=== PATIENT | male | born 1990 | race Caucasian/White ===

== ENCOUNTER 2018-10-25 10:31 | Emergency (ER) | payer MEDICAID ==
[~2018-10-25] VITALS: Ht 167.6 cm; Wt 158.9 kg
[~2018-10-25 10:31] MED LIST: ALBU18HF2 INH; BENZ-16 PO; FERR325T32 PO; LORA10TA7 PO; LOSA50TA64 PO; MESA1.2T PO; MONT10TA24 PO; PRED10TA23 PO; RISP1TAB3 PO; TRAZ-251 PO
[2018-10-25 10:57] VITALS: BP_DIAS 74
[2018-10-25 12:51] LABS: BASOPHILS % (AUTO) 0.5 % (0-1); EOSINOPHILS # (AUTO) 0.1 X10'3 (0-0.9); EOSINOPHILS % (AUTO) 0.9 % (0-6); HEMATOCRIT 22.8 % (42.0-52.0); HEMOGLOBIN 7.3 g/dl (14.0-17.9); LYMPHOCYTES # (AUTO) 1.1 X10'3 (1.1-4.8); LYMPHOCYTES % (AUTO) 12.3 % (21-51); MEAN CORPUSCULAR HEMOGLOBIN 26.6 PG (27.0-31.0); MEAN CORPUSCULAR HGB CONC 32.2 g/dL (33.0-36.5); MEAN CORPUSCULAR VOLUME 82.7 FL (78-98); MEAN PLATELET VOLUME 6.5 FL (7.4-10.4); MONOCYTES # (AUTO) 0.8 X10'3 (0-0.9); MONOCYTES % (AUTO) 9.2 % (2-12); NEUTROPHILS # (AUTO) 7.1 X10'3 (1.8-7.7); NEUTROPHILS % (AUTO) 77.1 % (42-75); PLATELET COUNT 451 X10'3 (140-440); RED BLOOD COUNT 2.76 X10'6 (4.70-6.10); WHITE BLOOD COUNT 9.2 X10'3 (4.5-11.0)
[2018-10-25 13:03] LABS: ALANINE AMINOTRANSFERASE 14 U/L (12-78); ALBUMIN/GLOBULIN RATIO 0.5 (1.1-1.5); ALKALINE PHOSPHATASE 41 IU/L (46-116); ANION GAP 5 (8-16); ASPARTATE AMINO TRANSFERASE 7 U/L (10-37); BILIRUBIN,TOTAL 0.2 MG/DL (0.1-1.0); BLOOD UREA NITROGEN 12 MG/DL (7-18); BUN/CREATININE RATIO 10.8 (5.4-32.0); CALCIUM 8.5 MG/DL (8.5-10.1); CHLORIDE 102 MMOL/L (99-107); CREATININE 1.11 MG/DL (0.60-1.10); GLUCOSE 125 MG/DL (70-104); POTASSIUM 3.5 MMOL/L (3.5-5.1); SODIUM 136 MMOL/L (135-145); TOTAL CARBON DIOXIDE 29.3 MMOL/L (24-32); TOTAL PROTEIN 6.2 G/DL (6.4-8.2); eGFR 81 ML/MIN
[2018-10-25 13:08] LABS: ANISOCYTOSIS 2+; LARGE PLATELETS FEW; MICROCYTOSIS 1+; PLATELET ESTIMATE INCREASED
[2018-10-25 13:09] LABS: ELLIPTOCYTES FEW; POIKILOCYTOSIS FEW; POLYCHROMASIA 2+
[2018-10-25 13:10] LABS: TARGET CELLS FEW; TEAR DROP CELLS 1+
== END 2018-10-25 13:29 | disposition home or self-care (01) ==
LOC: ER 10:32
DX: D64.9 Anemia, unspecified (principal); K51.011 Ulcerative (chronic) pancolitis with rectal bleeding; Z79.899 Other long term (current) drug therapy; Z87.891 Personal history of nicotine dependence
CPT/HCPCS: 36415; 80053; 85025; 85610; 86885; 86900; 86901; 99283

== ENCOUNTER 2018-11-08 20:46 | Inpatient (IN) | payer MEDICAID ==
[~2018-11-08] VITALS: Ht 167.6 cm; Wt 150.0 kg
[2018-11-08] MEDS ORDERED: famotidine/PF 10 mg/ml inj IV ONE (21:00)
[2018-11-08] MEDS ORDERED: octreotide 100mcg/1 ml ampule IV ONE (21:00)
--- NOTE | 2018-11-08 21:03 | NUR ---
DUE TO PT SIZE, UNABLE TO AUSCULTATE LUNGS OR ABDOMEN
[2018-11-08] MEDS ORDERED: ESOMEPRAZOLE 40 MG VIAL IV ONE (21:10)
[2018-11-08 21:11] LABS: BASOPHILS % (AUTO) 0.3 % (0-1); EOSINOPHILS % (AUTO) 0.4 % (0-6); LYMPHOCYTES # (AUTO) 1.6 X10'3 (1.1-4.8); LYMPHOCYTES % (AUTO) 15.2 % (21-51); MEAN CORPUSCULAR HEMOGLOBIN 24.7 PG (27.0-31.0); MEAN CORPUSCULAR VOLUME 79.7 FL (78-98); MEAN PLATELET VOLUME 6.6 FL (7.4-10.4); MONOCYTES # (AUTO) 1.5 X10'3 (0-0.9); MONOCYTES % (AUTO) 14.4 % (2-12); NEUTROPHILS # (AUTO) 7.4 X10'3 (1.8-7.7); NEUTROPHILS % (AUTO) 69.7 % (42-75); PLATELET COUNT 573 X10'3 (140-440); RED BLOOD COUNT 2.59 X10'6 (4.70-6.10); RED CELL DISTRIBUTION WIDTH 18.7 % (11.5-14.5); WHITE BLOOD COUNT 10.7 X10'3 (4.5-11.0)
[2018-11-08] MEDS: pantoprazole 40MG/NS 100ML BAG 100 ML IV SCH (21:16)
[2018-11-08 21:17] LABS: HEMATOCRIT 20.7 % (42.0-52.0); HEMOGLOBIN 6.4 g/dl (14.0-17.9)
[2018-11-08] MEDS ORDERED: hydrocortisone sod succ/PF 100mg/2ml inj. IV STA (21:23)
[2018-11-08 21:24] LABS: ALANINE AMINOTRANSFERASE 20 U/L (12-78); ALBUMIN 1.7 G/DL (3.4-5.0); ALBUMIN/GLOBULIN RATIO 0.4 (1.1-1.5); ALKALINE PHOSPHATASE 46 IU/L (46-116); ANION GAP 4 (8-16); ASPARTATE AMINO TRANSFERASE 7 U/L (10-37); BILIRUBIN,TOTAL 0.3 MG/DL (0.1-1.0); BLOOD UREA NITROGEN 9 MG/DL (7-18); CALCIUM 7.5 MG/DL (8.5-10.1); CHLORIDE 98 MMOL/L (99-107); CREATININE 1.13 MG/DL (0.60-1.10); GLUCOSE 110 MG/DL (70-104); LIPASE 50 U/L (73-393); POTASSIUM 3.5 MMOL/L (3.5-5.1); SODIUM 131 MMOL/L (135-145); TOTAL CARBON DIOXIDE 29.3 MMOL/L (24-32); TOTAL PROTEIN 6.1 G/DL (6.4-8.2); eGFR 79 ML/MIN
[2018-11-08] MEDS ORDERED: octreotide inj. 1,250 MCG in normal saline 250ml IV soln 250 ML IV ONE (21:25)
[2018-11-08] MEDS ORDERED: normal saline 1000ML IV soln IV ONE (21:25)
[2018-11-08 21:44] LABS: PARTIAL THROMBOPLASTIN TIME 29 SECONDS (22-32)
[2018-11-08] MEDS ORDERED: mag hydrox/Alum hydrox/simeth 30ml oral suspension PO PRN (21:50)
[2018-11-08] MEDS ORDERED: morphine 2 MG/ML inj. syringe IV PRN ×2 (21:50)
[2018-11-08] MEDS ORDERED: magnesium hydroxide 30ml (MOM) UD suspension PO PRN (21:50)
[2018-11-08] MEDS ORDERED: acetaminophen 325mg tablet PO PRN ×2 (21:50)
[2018-11-08] MEDS ORDERED: ondansetron/PF 4mg/2ml inj IV PRN (21:50)
[2018-11-08 21:51] LABS: ANISOCYTOSIS 2+; HYPOCHROMASIA 1+; LARGE PLATELETS FEW; MICROCYTOSIS 1+; PLATELET ESTIMATE INCREASED; POLYCHROMASIA FEW; STOMATOCYTES FEW
[2018-11-08 22:28] LABS: OCCULT BLOOD STOOL POSITIVE (Neg)
[2018-11-08 22:32] VITALS: BP 142/85
[2018-11-08 22:56] VITALS: BP 140/80
--- NOTE | 2018-11-08 22:57 | NUR ---
Patient in room [facility]. I have received report from LARON Ray and had the opportunity to ask questions and assume patient care.
[2018-11-08 23:30] VITALS: BP 141/71
[2018-11-08 23:56] VITALS: BP 139/79
[2018-11-09] VITALS (10 sets, daily range): BP systolic 131–163; BP diastolic 71–105
[2018-11-09] MEDS: normal saline 1000ml 1,000 ML IV SCH ×3 (01:52→19:28)
[2018-11-09] MEDS ORDERED: hydrocortisone sod succ/PF 100mg/2ml inj. IV SCH (02:00)
[2018-11-09] MEDS: pantoprazole 40MG/NS 100ML BAG 100 ML IV SCH ×5 (02:08→21:25)
[2018-11-09] MEDS: hydrocortisone sod succ/PF 100mg/2ml inj. IV SCH ×4 (02:32→19:28)
[2018-11-09] MEDS: metroNIDAZOLE-Flagyl 500mg/NS 100 ML IV SCH ×3 (02:33→16:25)
[2018-11-09] MEDS: levoFLOXACIN-Levaquin 500mg/D5 100 ML IV SCH ×2 (03:50→08:00)
[2018-11-09 04:04] LABS: CLARITY,URINE CLEAR (Clear); COLOR,URINE YELLOW (Yellow); GLUCOSE, URINE 100 mg/dl (Neg); KETONES,URINE 40 mg/dl (Neg); LEUKOCYTE ESTERASE ,URINE NEGATIVE (Neg); NITRITES, URINE NEGATIVE (Neg); OCCULT BLOOD,URINE NEGATIVE (Neg); PROTEIN,URINE TRACE mg/dl (Neg); UROBILINOGEN,URINE 0.2 E.U/dL (0.2-1.0)
[2018-11-09 04:13] LABS: UA COLLECTION TYPE CLN CATCH MIDSTREAM
[2018-11-09 04:14] LABS: BACTERIA,URINE NONE SEEN /HPF (Neg); RBC,URINE 0-2 /HPF (0-2); SQUAMOUS EPITHELIAL CELL,UR FEW /LPF (FEW); WBC,URINE NONE SEEN /HPF (0-4)
--- NOTE | 2018-11-09 06:11 | NUR ---
Problems reprioritized. Patient report given, questions answered & plan of care reviewed with LARON Reyes.
--- NOTE | 2018-11-09 06:53 | NUR ---
Patient in room [facility]. I have received report from Rafita LARRY and had the opportunity to ask questions and assume patient care.
[2018-11-09 06:54] LABS: ALBUMIN 1.7 G/DL (3.4-5.0); ANION GAP 3 (8-16); BLOOD UREA NITROGEN 11 MG/DL (7-18); BUN/CREATININE RATIO 9.2 (5.4-32.0); CALCIUM 8.3 MG/DL (8.5-10.1); CHLORIDE 102 MMOL/L (99-107); CREATININE 1.19 MG/DL (0.60-1.10); GLUCOSE 264 MG/DL (70-104); POTASSIUM 4.1 MMOL/L (3.5-5.1); SODIUM 133 MMOL/L (135-145); TOTAL CARBON DIOXIDE 28.4 MMOL/L (24-32); eGFR 74 ML/MIN
[2018-11-09 06:55] LABS: BASOPHILS % (AUTO) 0.3 % (0-1); EOSINOPHILS % (AUTO) 0.1 % (0-6); LYMPHOCYTES # (AUTO) 0.8 X10'3 (1.1-4.8); LYMPHOCYTES % (AUTO) 9.6 % (21-51); MEAN CORPUSCULAR HEMOGLOBIN 26.2 PG (27.0-31.0); MEAN CORPUSCULAR VOLUME 81.9 FL (78-98); MEAN PLATELET VOLUME 6.7 FL (7.4-10.4); MONOCYTES # (AUTO) 0.5 X10'3 (0-0.9); MONOCYTES % (AUTO) 6.8 % (2-12); NEUTROPHILS # (AUTO) 6.6 X10'3 (1.8-7.7); NEUTROPHILS % (AUTO) 83.2 % (42-75); PLATELET COUNT 479 X10'3 (140-440); RED BLOOD COUNT 2.69 X10'6 (4.70-6.10); RED CELL DISTRIBUTION WIDTH 18.1 % (11.5-14.5)
[2018-11-09] MEDS ORDERED: mesalamine 400 mg capsule.DR PO SCH (07:00)
--- NOTE | 2018-11-09 07:32 | NUR ---
Paged Dr. Zacarias regarding hgb this am of 7.0, hct of 22.0. I also let him know the glucose chemistry this am was 264mg/dl, capillary glucose of 196, urine glucose of 100 and urine ketone of 40
[2018-11-09] MEDS ORDERED: mesalamine 1.2gm ER tablet PO SCH (08:00)
[2018-11-09] MEDS: mesalamine 1.2gm ER tablet PO SCH ×3 (09:17→21:25)
[2018-11-09] MEDS ORDERED: potassium Cl 20 mEq SR tablet PO PRN (09:20)
[2018-11-09] MEDS ORDERED: magnesium Cl slow-release 64mg tablet PO PRN (09:20)
[2018-11-09] MEDS ORDERED: magnesium 4gm in 100ml NS 100 ML IV PRN (09:20)
[2018-11-09] MEDS ORDERED: potassium CL 10mEq/100ml bag 100 ML IV PRN (09:20)
[2018-11-09 11:10] LABS: C DIFF ANTIGEN SEE COMMENTS (NEGATIVE); C DIFF SPECIMEN=DIARRHEA? ACCEPTABLE; C DIFFICILE TOXINS A&B NEGATIVE (Neg)
[2018-11-09 11:14] LABS: C DIFF TOXIN (LAMP) POSITIVE (NEG)
--- NOTE | 2018-11-09 11:23 | NUR ---
Lab called reporting positive C. diff result. Dr. Zacarias notified and patient was notified
[2018-11-09] MEDS ORDERED: non-formulary drug (Albuterol Sulfate (Ventolin Hfa) 2 PUFFS) INH SCH (12:05)
[2018-11-09] MEDS ORDERED: albuterol 2.5 MG/3 ML nebule NEB PRN (12:10)
[2018-11-09] MEDS: losartan 50mg tablet PO SCH (14:05)
[2018-11-09] MEDS: vancomycin 125mg/5ml ORAL solution 5ml UD bottle PO SCH ×2 (14:05→19:28)
--- NOTE | 2018-11-09 15:53 | NUR ---
1 unit of PRBC transfused, no reaction noted. Patient's mother at bedside, educated the mother and the other visitor about the importance of handwashing with soap and water to prevent transmission of C. diff to another person. Visitors were also aware of the need to wear gown while visiting patient
--- NOTE | 2018-11-09 15:54 | NUR ---
Paged GI lab nurse to confirm the schedule for EGD, I also left a message to the answering service to ask Dr. Amanda if EGD will be done today or tomorrow
--- NOTE | 2018-11-09 16:19 | NUR ---
The answering service from Dr. Amanda office called, according to her Dr. Amanda said EGD will not be done today but tomorrow since patient already ate breakfast today
[2018-11-09 17:53] LABS: HEMATOCRIT 25.1 % (42.0-52.0); MEAN CORPUSCULAR HEMOGLOBIN 26.1 PG (27.0-31.0); MEAN CORPUSCULAR VOLUME 81.6 FL (78-98); MEAN PLATELET VOLUME 6.8 FL (7.4-10.4); PLATELET COUNT 525 X10'3 (140-440); RED BLOOD COUNT 3.08 X10'6 (4.70-6.10); RED CELL DISTRIBUTION WIDTH 17.5 % (11.5-14.5); WHITE BLOOD COUNT 11.8 X10'3 (4.5-11.0)
--- NOTE | 2018-11-09 18:50 | NUR ---
Problems reprioritized. Patient report given, questions answered & plan of care reviewed with Peg Foote RN.
[2018-11-09] MEDS: ferrous sulfate 325mg tablet PO SCH (19:28)
[2018-11-09] MEDS: lactobacillus rhamnosus 10,000 MMU CELLS/CAPSULE PO SCH (19:28)
[2018-11-09] MEDS ORDERED: non-formulary drug (Risperidone 1 TAB) PO SCH (21:00)
[2018-11-09] MEDS: traZODone 50mg tablet PO SCH (21:25)
[2018-11-09] MEDS: risperiDONE 0.5mg tablet PO SCH (21:25)
[2018-11-10] VITALS: BP 147/89
[2018-11-10] MEDS: metroNIDAZOLE-Flagyl 500mg/NS 100 ML IV SCH ×2 (00:25→06:59)
[2018-11-10] MEDS: hydrocortisone sod succ/PF 100mg/2ml inj. IV SCH ×4 (01:06→20:26)
[2018-11-10] MEDS: vancomycin 125mg/5ml ORAL solution 5ml UD bottle PO SCH ×4 (01:06→20:26)
[2018-11-10] MEDS: pantoprazole 40MG/NS 100ML BAG 100 ML IV SCH ×3 (01:06→11:00)
[2018-11-10] MEDS: HYDROcodone/acetaminophen 10/325mg tab PO PRN ×3 (01:17→19:42)
[2018-11-10] MEDS: normal saline 1000ml 1,000 ML IV SCH ×4 (03:46→23:45)
[2018-11-10 05:10] LABS: BASOPHILS % (AUTO) 0.1 % (0-1); EOSINOPHILS % (AUTO) 0.1 % (0-6); HEMOGLOBIN 8.5 g/dl (14.0-17.9); LYMPHOCYTES % (AUTO) 9.4 % (21-51); MEAN CORPUSCULAR HEMOGLOBIN 25.9 PG (27.0-31.0); MEAN CORPUSCULAR HGB CONC 31.4 g/dL (33.0-36.5); MEAN CORPUSCULAR VOLUME 82.6 FL (78-98); MEAN PLATELET VOLUME 6.7 FL (7.4-10.4); MONOCYTES # (AUTO) 0.7 X10'3 (0-0.9); MONOCYTES % (AUTO) 6.8 % (2-12); NEUTROPHILS # (AUTO) 9.1 X10'3 (1.8-7.7); NEUTROPHILS % (AUTO) 83.6 % (42-75); PLATELET COUNT 549 X10'3 (140-440); RED BLOOD COUNT 3.27 X10'6 (4.70-6.10); RED CELL DISTRIBUTION WIDTH 17.9 % (11.5-14.5); WHITE BLOOD COUNT 10.8 X10'3 (4.5-11.0)
[2018-11-10 05:30] LABS: ALBUMIN 1.9 G/DL (3.4-5.0); ANION GAP 5 (8-16); BLOOD UREA NITROGEN 9 MG/DL (7-18); CALCIUM 8.4 MG/DL (8.5-10.1); CHLORIDE 104 MMOL/L (99-107); GLUCOSE 148 MG/DL (70-104); MAGNESIUM 2.2 MG/DL (1.5-2.4); POTASSIUM 4.1 MMOL/L (3.5-5.1); SODIUM 136 MMOL/L (135-145); TOTAL CARBON DIOXIDE 26.9 MMOL/L (24-32); eGFR > 90 ML/MIN
--- NOTE | 2018-11-10 06:21 | NUR ---
Problems reprioritized. Patient report given, questions answered & plan of care reviewed with LARON Jose.
--- NOTE | 2018-11-10 06:35 | NUR ---
Patient in room [facility]. I have received report from Loretta Foote RN and had the opportunity to ask questions and assume patient care.
[2018-11-10] MEDS: ferrous sulfate 325mg tablet PO SCH ×2 (06:58→20:26)
[2018-11-10] MEDS: lactobacillus rhamnosus 10,000 MMU CELLS/CAPSULE PO SCH ×2 (06:58→20:31)
[2018-11-10] MEDS: mesalamine 1.2gm ER tablet PO SCH ×3 (06:59→20:26)
[2018-11-10] MEDS: losartan 50mg tablet PO SCH (06:59)
[2018-11-10 07:00] VITALS: BP_SYST 151; BP_SYST 154; BP_SYST 157; BP_DIAS 108; BP_DIAS 109; BP_DIAS 85
[2018-11-10] MEDS: loratadine 10mg tablet PO SCH (08:39)
[2018-11-10] MEDS: montelukast 10mg tablet PO SCH (08:39)
[2018-11-10 11:00] VITALS: BP 150/93
[2018-11-10] MEDS ORDERED: metroNIDAZOLE 500mg tablet PO SCH (16:00)
--- NOTE | 2018-11-10 18:42 | NUR ---
Problems reprioritized. Patient report given, questions answered & plan of care reviewed with Prudence RN.
--- NOTE | 2018-11-10 19:06 | NUR ---
Patient in room [facility]. I have received report from Rebeca LARRY and had the opportunity to ask questions and assume patient care. patient eating dinner and showed no sign of distress.
[2018-11-10 20:00] VITALS: BP_SYST 130; BP_SYST 152; BP_SYST 156; BP_SYST 161; BP_DIAS 82; BP_DIAS 85; BP_DIAS 87; BP_DIAS 96
[2018-11-10] MEDS: risperiDONE 0.5mg tablet PO SCH (20:27)
[2018-11-10] MEDS: traZODone 50mg tablet PO SCH (20:30)
[2018-11-11] VITALS: BP 130/96
[2018-11-11] MEDS: HYDROcodone/acetaminophen 10/325mg tab PO PRN ×4 (01:03→21:10)
[2018-11-11] MEDS: vancomycin 125mg/5ml ORAL solution 5ml UD bottle PO SCH ×4 (01:59→20:56)
[2018-11-11 05:48] LABS: EOSINOPHILS % (AUTO) 0.1 % (0-6); HEMATOCRIT 24.7 % (42.0-52.0); HEMOGLOBIN 7.7 g/dl (14.0-17.9); NEUTROPHILS # (AUTO) 13.9 X10'3 (1.8-7.7)
[2018-11-11 05:50] LABS: BASOPHILS % (AUTO) 0.2 % (0-1); LYMPHOCYTES # (AUTO) 1.7 X10'3 (1.1-4.8); MEAN CORPUSCULAR HEMOGLOBIN 25.7 PG (27.0-31.0); MEAN CORPUSCULAR HGB CONC 31.1 g/dL (33.0-36.5); MEAN CORPUSCULAR VOLUME 82.4 FL (78-98); MEAN PLATELET VOLUME 6.6 FL (7.4-10.4); MONOCYTES % (AUTO) 5.9 % (2-12); NEUTROPHILS % (AUTO) 83.8 % (42-75); PLATELET COUNT 606 X10'3 (140-440); RED CELL DISTRIBUTION WIDTH 18.3 % (11.5-14.5); WHITE BLOOD COUNT 16.6 X10'3 (4.5-11.0)
[2018-11-11 05:53] LABS: ALBUMIN 1.8 G/DL (3.4-5.0); ANION GAP 6 (8-16); BLOOD UREA NITROGEN 13 MG/DL (7-18); BUN/CREATININE RATIO 11.6 (5.4-32.0); CALCIUM 8.1 MG/DL (8.5-10.1); CHLORIDE 103 MMOL/L (99-107); CREATININE 1.12 MG/DL (0.60-1.10); GLUCOSE 106 MG/DL (70-104); POTASSIUM 3.4 MMOL/L (3.5-5.1); SODIUM 136 MMOL/L (135-145); TOTAL CARBON DIOXIDE 26.6 MMOL/L (24-32); eGFR 80 ML/MIN
--- NOTE | 2018-11-11 06:38 | NUR ---
Problems reprioritized. Patient report given, questions answered & plan of care reviewed with Karla RN. Patient is resting shows no sign of distress.
[2018-11-11 07:25] VITALS: BP_SYST 160; BP_SYST 162; BP_SYST 165; BP_DIAS 110; BP_DIAS 98
[2018-11-11] MEDS: lactobacillus rhamnosus 10,000 MMU CELLS/CAPSULE PO SCH ×2 (07:29→20:57)
[2018-11-11] MEDS: losartan 50mg tablet PO SCH (07:29)
[2018-11-11] MEDS: pantoprazole 40mg Tablet.DR PO SCH (07:29)
[2018-11-11] MEDS: ferrous sulfate 325mg tablet PO SCH ×2 (07:29→20:57)
[2018-11-11] MEDS: loratadine 10mg tablet PO SCH (07:29)
[2018-11-11] MEDS: mesalamine 1.2gm ER tablet PO SCH ×3 (07:29→20:56)
[2018-11-11] MEDS: montelukast 10mg tablet PO SCH (07:29)
[2018-11-11] MEDS: normal saline 1000ml 1,000 ML IV SCH ×2 (10:29→20:54)
[2018-11-11 11:00] VITALS: BP 140/70
[2018-11-11] MEDS: potassium Cl 20 mEq SR tablet PO PRN ×2 (14:41→22:12)
--- NOTE | 2018-11-11 18:09 | NUR ---
Problems reprioritized. Patient report given, questions answered & plan of care reviewed with LARON Banks.
--- NOTE | 2018-11-11 18:51 | NUR ---
Patient in room [facility]. I have received report from Karla LARRY and had the opportunity to ask questions and assume patient care.
[2018-11-11 20:00] VITALS: BP_SYST 107; BP_SYST 108; BP_SYST 114; BP_DIAS 48; BP_DIAS 72
[2018-11-11] MEDS: risperiDONE 0.5mg tablet PO SCH (20:56)
[2018-11-11] MEDS: traZODone 50mg tablet PO SCH (20:56)
[2018-11-12] VITALS: BP 97/56
[2018-11-12] MEDS: potassium Cl 20 mEq SR tablet PO PRN (02:26)
[2018-11-12] MEDS: vancomycin 125mg/5ml ORAL solution 5ml UD bottle PO SCH ×4 (02:26→20:13)
[2018-11-12] MEDS: HYDROcodone/acetaminophen 10/325mg tab PO PRN ×4 (04:23→21:39)
[2018-11-12 05:32] LABS: BASOPHILS % (AUTO) 0.1 % (0-1); EOSINOPHILS # (AUTO) 0.1 X10'3 (0-0.9); EOSINOPHILS % (AUTO) 0.6 % (0-6); HEMATOCRIT 23.1 % (42.0-52.0); HEMOGLOBIN 7.2 g/dl (14.0-17.9); LYMPHOCYTES # (AUTO) 1.9 X10'3 (1.1-4.8); LYMPHOCYTES % (AUTO) 10.6 % (21-51); MEAN CORPUSCULAR HEMOGLOBIN 25.6 PG (27.0-31.0); MEAN CORPUSCULAR HGB CONC 31.2 g/dL (33.0-36.5); MEAN CORPUSCULAR VOLUME 81.9 FL (78-98); MEAN PLATELET VOLUME 6.6 FL (7.4-10.4); MONOCYTES # (AUTO) 1.5 X10'3 (0-0.9); MONOCYTES % (AUTO) 8.6 % (2-12); NEUTROPHILS # (AUTO) 14.4 X10'3 (1.8-7.7); NEUTROPHILS % (AUTO) 80.1 % (42-75); PLATELET COUNT 582 X10'3 (140-440); RED BLOOD COUNT 2.82 X10'6 (4.70-6.10); RED CELL DISTRIBUTION WIDTH 19.2 % (11.5-14.5)
[2018-11-12 05:58] LABS: ALBUMIN 1.4 G/DL (3.4-5.0); ANION GAP 8 (8-16); BLOOD UREA NITROGEN 17 MG/DL (7-18); BUN/CREATININE RATIO 15.6 (5.4-32.0); CALCIUM 7.7 MG/DL (8.5-10.1); CHLORIDE 101 MMOL/L (99-107); CREATININE 1.09 MG/DL (0.60-1.10); GLUCOSE 98 MG/DL (70-104); MAGNESIUM 1.6 MG/DL (1.5-2.4); SODIUM 131 MMOL/L (135-145); TOTAL CARBON DIOXIDE 22.4 MMOL/L (24-32); eGFR 82 ML/MIN
--- NOTE | 2018-11-12 06:25 | NUR ---
Problems reprioritized. Patient report given, questions answered & plan of care reviewed with Karla LARRY. patient slept well through the night.
[2018-11-12 07:12] LABS: ANISOCYTOSIS 2+; NUCLEATED RED BLOOD CELLS 1 /100WBC (0-0); PLATELET ESTIMATE INCREASED; POLYCHROMASIA 1+; TOTAL CELLS COUNTED 100
[2018-11-12 07:13] LABS: HYPOCHROMASIA 1+
[2018-11-12 07:30] VITALS: BP_SYST 123; BP_SYST 127; BP_SYST 148; BP_DIAS 80; BP_DIAS 81; BP_DIAS 94
[2018-11-12] MEDS: pantoprazole 40mg Tablet.DR PO SCH (07:47)
[2018-11-12] MEDS: loratadine 10mg tablet PO SCH (07:47)
[2018-11-12] MEDS: ferrous sulfate 325mg tablet PO SCH ×2 (07:47→20:13)
[2018-11-12] MEDS: losartan 50mg tablet PO SCH (07:47)
[2018-11-12] MEDS: montelukast 10mg tablet PO SCH (07:47)
[2018-11-12] MEDS: lactobacillus rhamnosus 10,000 MMU CELLS/CAPSULE PO SCH ×2 (07:48→20:12)
[2018-11-12] MEDS: mesalamine 1.2gm ER tablet PO SCH ×3 (07:48→20:12)
[2018-11-12] MEDS: normal saline 1000ml 1,000 ML IV SCH ×2 (09:29→20:26)
[2018-11-12 11:00] VITALS: BP 141/67
--- NOTE | 2018-11-12 18:22 | NUR ---
Problems reprioritized. Patient report given, questions answered & plan of care reviewed with Prudence, RN
--- NOTE | 2018-11-12 18:40 | NUR ---
Patient in room [facility]. I have received report from Eric LARRY and had the opportunity to ask questions and assume patient care.
[2018-11-12 20:00] VITALS: BP_SYST 110; BP_SYST 134; BP_DIAS 71; BP_DIAS 78
[2018-11-12] MEDS: risperiDONE 0.5mg tablet PO SCH (20:12)
[2018-11-12] MEDS: traZODone 50mg tablet PO SCH (20:13)
[2018-11-12 22:00] VITALS: BP 141/61
[2018-11-13] VITALS (11 sets, daily range): BP systolic 121–154; BP diastolic 64–93
[2018-11-13] MEDS: vancomycin 125mg/5ml ORAL solution 5ml UD bottle PO SCH ×4 (02:02→20:36)
[2018-11-13 04:45] LABS: BASOPHILS % (AUTO) 0.1 % (0-1); EOSINOPHILS # (AUTO) 0.4 X10'3 (0-0.9); EOSINOPHILS % (AUTO) 3.1 % (0-6); LYMPHOCYTES # (AUTO) 2.1 X10'3 (1.1-4.8); MEAN CORPUSCULAR HEMOGLOBIN 25.2 PG (27.0-31.0); MEAN CORPUSCULAR HGB CONC 31.3 g/dL (33.0-36.5); MEAN CORPUSCULAR VOLUME 80.6 FL (78-98); MEAN PLATELET VOLUME 6.6 FL (7.4-10.4); MONOCYTES # (AUTO) 1.2 X10'3 (0-0.9); MONOCYTES % (AUTO) 9.5 % (2-12); NEUTROPHILS # (AUTO) 8.6 X10'3 (1.8-7.7); NEUTROPHILS % (AUTO) 70.3 % (42-75); PLATELET COUNT 503 X10'3 (140-440); RED BLOOD COUNT 2.48 X10'6 (4.70-6.10); RED CELL DISTRIBUTION WIDTH 19.1 % (11.5-14.5); WHITE BLOOD COUNT 12.2 X10'3 (4.5-11.0)
[2018-11-13 04:52] LABS: HEMOGLOBIN 6.3 g/dl (14.0-17.9)
[2018-11-13 04:59] LABS: ALBUMIN 1.4 G/DL (3.4-5.0); ANION GAP 4 (8-16); BLOOD UREA NITROGEN 10 MG/DL (7-18); BUN/CREATININE RATIO 10.8 (5.4-32.0); CALCIUM 7.3 MG/DL (8.5-10.1); CHLORIDE 102 MMOL/L (99-107); CREATININE 0.93 MG/DL (0.60-1.10); GLUCOSE 90 MG/DL (70-104); MAGNESIUM 1.7 MG/DL (1.5-2.4); POTASSIUM 3.4 MMOL/L (3.5-5.1); SODIUM 131 MMOL/L (135-145); TOTAL CARBON DIOXIDE 24.6 MMOL/L (24-32); eGFR > 90 ML/MIN
[2018-11-13] MEDS: HYDROcodone/acetaminophen 10/325mg tab PO PRN ×4 (05:11→21:40)
--- NOTE | 2018-11-13 06:34 | NUR ---
Problems reprioritized. Patient report given, questions answered & plan of care reviewed with Kassandra LARRY.
--- NOTE | 2018-11-13 06:41 | NUR ---
Patient in room [facility]. I have received report from LARON Banks and had the opportunity to ask questions and assume patient care.
[2018-11-13] MEDS ORDERED: potassium Cl 20 mEq SR tablet PO PRN (07:25)
[2018-11-13] MEDS ORDERED: potassium CL 10mEq/100ml bag 100 ML IV PRN (07:25)
[2018-11-13] MEDS ORDERED: magnesium 4gm in 100ml NS 100 ML IV PRN (07:25)
[2018-11-13] MEDS ORDERED: magnesium Cl slow-release 64mg tablet PO PRN (07:25)
--- NOTE | 2018-11-13 07:40 | NUR ---
PAGER ID: [phone] MESSAGE: [id number] [facility] H&H 6.3 BP 139/79, HR 105
[2018-11-13] MEDS: loratadine 10mg tablet PO SCH (09:02)
[2018-11-13] MEDS: pantoprazole 40mg Tablet.DR PO SCH (09:02)
[2018-11-13] MEDS: ferrous sulfate 325mg tablet PO SCH ×2 (09:03→20:39)
[2018-11-13] MEDS: mesalamine 1.2gm ER tablet PO SCH ×3 (09:03→20:38)
[2018-11-13] MEDS: lactobacillus rhamnosus 10,000 MMU CELLS/CAPSULE PO SCH ×2 (09:03→20:39)
[2018-11-13] MEDS: losartan 50mg tablet PO SCH (09:03)
[2018-11-13] MEDS: montelukast 10mg tablet PO SCH (09:04)
[2018-11-13] MEDS: potassium Cl 20 mEq SR tablet PO PRN ×3 (09:05→20:38)
[2018-11-13] MEDS: normal saline 1000ml 1,000 ML IV SCH (09:06)
[2018-11-13] MEDS ORDERED: propranolol 10mg tablet PO ONE (12:35)
--- NOTE | 2018-11-13 15:25 | NUR ---
Initial: Pt admit with GIB and ulcerative colitis flare up. Stool C.diff positive. Pt seen at bedside provided with written and verbal ulcerative colitis nutrition therapy and RD contact information. Pt reports no longer with bloody stools and BMs are becoming more formed. Pt denies any food allergies or difficulty chewing/swallowing. Pt on CHO controlled diet although with no documented hx DM, currently with 75-100% PO intake. Pt reports still being hungry after meals and is agreeable to double protein TID, d/w dietary. Will continue to follow. Recommendations: 1) Advance to low-residue diet as medically indicated; no hx DM 2) Double protein TID 3) Wt per rx Addendum: 11/13/18 at [address] Amended: Links added.
--- NOTE | 2018-11-13 17:00 | NUR ---
PAGER ID: [phone] MESSAGE: [facility] [id number] pt temp 100 prior to PRBC administration, 100.4 at first 15 min vital sign check
--- NOTE | 2018-11-13 18:20 | NUR ---
Problems reprioritized. Patient report given, questions answered & plan of care reviewed with LARON Sanders.
--- NOTE | 2018-11-13 18:25 | NUR ---
Patient in room [facility]. I have received report from LARON Cannon and had the opportunity to ask questions and assume patient care. Addendum: 11/14/18 at 0126 by Althea Howell RN Amended: Links added.
[2018-11-13] MEDS: risperiDONE 0.25mg tablet PO SCH (20:38)
[2018-11-13] MEDS: traZODone 50mg tablet PO SCH (20:39)
[2018-11-13] MEDS: propranolol 10mg tablet PO SCH (20:39)
[2018-11-13 23:02] LABS: MEAN CORPUSCULAR HEMOGLOBIN 26.1 PG (27.0-31.0); MEAN CORPUSCULAR HGB CONC 31.3 g/dL (33.0-36.5); MEAN CORPUSCULAR VOLUME 83.4 FL (78-98); MEAN PLATELET VOLUME 6.5 FL (7.4-10.4); PLATELET COUNT 477 X10'3 (140-440); RED BLOOD COUNT 2.45 X10'6 (4.70-6.10); RED CELL DISTRIBUTION WIDTH 18.1 % (11.5-14.5); WHITE BLOOD COUNT 14.4 X10'3 (4.5-11.0)
[2018-11-13 23:04] LABS: HEMATOCRIT 20.4 % (42.0-52.0); HEMOGLOBIN 6.4 g/dl (14.0-17.9)
--- NOTE | 2018-11-13 23:45 | NUR ---
cpap on. Addendum: 11/14/18 at 0225 by Althea Howell RN Amended: Links added.
[2018-11-14] VITALS (7 sets, daily range): BP systolic 116–164; BP diastolic 65–91
[2018-11-14] MEDS: HYDROcodone/acetaminophen 10/325mg tab PO PRN ×4 (01:44→17:55)
[2018-11-14] MEDS: vancomycin 125mg/5ml ORAL solution 5ml UD bottle PO SCH ×2 (01:44→08:55)
--- NOTE | 2018-11-14 06:31 | NUR ---
Patient in room [facility]. I have received report from LARON Sanders and had the opportunity to ask questions and assume patient care.
--- NOTE | 2018-11-14 06:36 | NUR ---
Problems reprioritized. Patient report given, questions answered & plan of care reviewed with LARON Escobedo. Addendum: 11/14/18 at 0636 by Althea Howell RN Amended: Links added. Addendum: 11/14/18 at 0637 by Althea Howell RN Problems reprioritized. Patient report given, questions answered & plan of care reviewed with LARON Cannon. not Fanny
[2018-11-14 07:12] LABS: EOSINOPHILS # (AUTO) 0.5 X10'3 (0-0.9); LYMPHOCYTES # (AUTO) 2.1 X10'3 (1.1-4.8); MEAN PLATELET VOLUME 6.7 FL (7.4-10.4)
[2018-11-14 07:14] LABS: BASOPHILS % (AUTO) 0.2 % (0-1); EOSINOPHILS % (AUTO) 2.7 % (0-6); HEMOGLOBIN 8.5 g/dl (14.0-17.9); LYMPHOCYTES % (AUTO) 10.9 % (21-51); MEAN CORPUSCULAR HEMOGLOBIN 26.5 PG (27.0-31.0); MEAN CORPUSCULAR HGB CONC 31.5 g/dL (33.0-36.5); MONOCYTES % (AUTO) 5.4 % (2-12); NEUTROPHILS # (AUTO) 15.5 X10'3 (1.8-7.7); NEUTROPHILS % (AUTO) 80.8 % (42-75); PLATELET COUNT 578 X10'3 (140-440); RED BLOOD COUNT 3.21 X10'6 (4.70-6.10); WHITE BLOOD COUNT 19.1 X10'3 (4.5-11.0)
[2018-11-14 07:19] LABS: ALANINE AMINOTRANSFERASE 16 U/L (12-78); ALBUMIN 1.5 G/DL (3.4-5.0); ALBUMIN/GLOBULIN RATIO 0.3 (1.1-1.5); ALKALINE PHOSPHATASE 53 IU/L (46-116); ANION GAP 7 (8-16); ASPARTATE AMINO TRANSFERASE 10 U/L (10-37); BILIRUBIN,TOTAL 0.4 MG/DL (0.1-1.0); BLOOD UREA NITROGEN 7 MG/DL (7-18); CALCIUM 7.4 MG/DL (8.5-10.1); CHLORIDE 100 MMOL/L (99-107); CREATININE 0.87 MG/DL (0.60-1.10); GLUCOSE 77 MG/DL (70-104); MAGNESIUM 1.7 MG/DL (1.5-2.4); PHOSPHORUS 2.5 MG/DL (2.3-4.5); POTASSIUM 4.2 MMOL/L (3.5-5.1); SODIUM 131 MMOL/L (135-145); TOTAL CARBON DIOXIDE 24.5 MMOL/L (24-32); eGFR > 90 ML/MIN
[2018-11-14 07:41] LABS: NUCLEATED RED BLOOD CELLS 4 /100WBC (0-0); PLATELET ESTIMATE INCREASED; TOTAL CELLS COUNTED 100
[2018-11-14 07:42] LABS: ANISOCYTOSIS 1+; HYPOCHROMASIA 1+; MICROCYTOSIS 1+; POIKILOCYTOSIS FEW; POLYCHROMASIA 2+
[2018-11-14] MEDS: mesalamine 1.2gm ER tablet PO SCH ×3 (08:55→19:40)
[2018-11-14] MEDS: lactobacillus rhamnosus 10,000 MMU CELLS/CAPSULE PO SCH ×2 (08:55→19:40)
[2018-11-14] MEDS: propranolol 10mg tablet PO SCH ×2 (08:55→19:42)
[2018-11-14] MEDS: loratadine 10mg tablet PO SCH (08:55)
[2018-11-14] MEDS: montelukast 10mg tablet PO SCH (08:55)
[2018-11-14] MEDS: pantoprazole 40mg Tablet.DR PO SCH (08:55)
[2018-11-14] MEDS: losartan 50mg tablet PO SCH (08:55)
[2018-11-14] MEDS: ferrous sulfate 325mg tablet PO SCH ×2 (08:55→19:41)
[2018-11-14] MEDS: vancomycin 250MG/10ML UD oral solution 10ML BOTTLE PO SCH ×2 (13:21→19:39)
[2018-11-14] MEDS ORDERED: methylPREDNISolone sod succ 125mg/2ml vial IV ONE (16:50)
--- NOTE | 2018-11-14 18:25 | NUR ---
Problems reprioritized. Patient report given, questions answered & plan of care reviewed with LARON Vasquez.
--- NOTE | 2018-11-14 18:37 | NUR ---
Patient in room [facility]. I have received report from Kassandra Wheatley and had the opportunity to ask questions and assume patient care. Addendum: 11/14/18 at 1837 by Christina Botello RN Amended: Links added.
[2018-11-14] MEDS: risperiDONE 0.25mg tablet PO SCH (19:42)
[2018-11-14] MEDS: traZODone 50mg tablet PO SCH (19:42)
[2018-11-14] MEDS: methylPREDNISolone sod succ 125mg/2ml vial IV SCH (19:44)
--- NOTE | 2018-11-14 20:10 | NUR ---
pt without complaints sitting up on the edge of the bed. no complaints of pain at this time.
--- NOTE | 2018-11-14 22:10 | NUR ---
resting eyes closed no changes.
[2018-11-14] MEDS: HYDROcodone/acetaminophen 5mg/325mg tablet PO PRN (22:53)
--- NOTE | 2018-11-14 22:55 | NUR ---
medicated for c/o pain at this time. 11/12. pt watching a movie flat affect.
[2018-11-15 00:21] VITALS: BP 116/68
--- NOTE | 2018-11-15 01:06 | NUR ---
pt resting eyes closed cpap on no s&s of distress.
[2018-11-15] MEDS: vancomycin 250MG/10ML UD oral solution 10ML BOTTLE PO SCH ×4 (02:33→19:29)
--- NOTE | 2018-11-15 02:35 | NUR ---
pt awoke to take isela fairbanks and went back on the bipap.
--- NOTE | 2018-11-15 04:25 | NUR ---
resting eyes closed no s&s of distress.
[2018-11-15] MEDS: HYDROcodone/acetaminophen 5mg/325mg tablet PO PRN ×3 (05:28→19:02)
--- NOTE | 2018-11-15 05:30 | NUR ---
pt awake c/o pain 12/13 and medicated with norco for this. pt affect flat and calm.
--- NOTE | 2018-11-15 06:55 | NUR ---
Problems reprioritized. Patient report given, questions answered & plan of care reviewed with Gabriella Wheatley. Addendum: 11/15/18 at 0656 by Christina Botello RN Amended: Links added.
--- NOTE | 2018-11-15 07:08 | NUR ---
Patient in room [facility]. I have received report from LARON Vasquez and had the opportunity to ask questions and assume patient care.
[2018-11-15 07:23] VITALS: BP 138/78
[2018-11-15] MEDS: loratadine 10mg tablet PO SCH (08:55)
[2018-11-15] MEDS: losartan 50mg tablet PO SCH (08:55)
[2018-11-15] MEDS: propranolol 10mg tablet PO SCH ×2 (08:55→19:29)
[2018-11-15] MEDS: mesalamine 1.2gm ER tablet PO SCH ×3 (08:55→20:53)
[2018-11-15] MEDS: methylPREDNISolone sod succ 125mg/2ml vial IV SCH ×2 (08:55→19:27)
[2018-11-15] MEDS: lactobacillus rhamnosus 10,000 MMU CELLS/CAPSULE PO SCH ×2 (08:55→19:29)
[2018-11-15] MEDS: ferrous sulfate 325mg tablet PO SCH ×2 (08:56→19:29)
[2018-11-15] MEDS: montelukast 10mg tablet PO SCH (08:56)
[2018-11-15] MEDS: pantoprazole 40mg Tablet.DR PO SCH (09:11)
[2018-11-15 10:30] LABS: ALANINE AMINOTRANSFERASE 15 U/L (12-78); ALBUMIN 1.2 G/DL (3.4-5.0); ALBUMIN/GLOBULIN RATIO 0.3 (1.1-1.5); ANION GAP 4 (8-16); ASPARTATE AMINO TRANSFERASE 7 U/L (10-37); BILIRUBIN,TOTAL 0.2 MG/DL (0.1-1.0); BLOOD UREA NITROGEN 6 MG/DL (7-18); BUN/CREATININE RATIO 7.5 (5.4-32.0); CALCIUM 7.6 MG/DL (8.5-10.1); CHLORIDE 101 MMOL/L (99-107); GLUCOSE 198 MG/DL (70-104); PHOSPHORUS 3.4 MG/DL (2.3-4.5); POTASSIUM 4.3 MMOL/L (3.5-5.1); SODIUM 131 MMOL/L (135-145); TOTAL CARBON DIOXIDE 26.3 MMOL/L (24-32); TOTAL PROTEIN 5.4 G/DL (6.4-8.2); eGFR > 90 ML/MIN
[2018-11-15 10:31] LABS: ALKALINE PHOSPHATASE 50 IU/L (46-116)
[2018-11-15 11:10] LABS: HEMOGLOBIN 7.3 g/dl (14.0-17.9)
[2018-11-15 11:12] LABS: HEMATOCRIT 22.2 % (42.0-52.0); MEAN CORPUSCULAR HEMOGLOBIN 26.9 PG (27.0-31.0); MEAN CORPUSCULAR HGB CONC 32.9 g/dL (33.0-36.5); MEAN CORPUSCULAR VOLUME 81.9 FL (78-98); MEAN PLATELET VOLUME 6.6 FL (7.4-10.4); PLATELET COUNT 472 X10'3 (140-440); RED BLOOD COUNT 2.71 X10'6 (4.70-6.10); WHITE BLOOD COUNT 12.8 X10'3 (4.5-11.0)
[2018-11-15 11:30] VITALS: BP 126/74
[2018-11-15 11:42] LABS: TOTAL CELLS COUNTED 100
[2018-11-15 11:43] LABS: ANISOCYTOSIS 1+; MICROCYTOSIS 1+; PLATELET ESTIMATE INCREASED; POLYCHROMASIA 2+; TEAR DROP CELLS FEW
[2018-11-15 19:00] VITALS: BP 152/80
--- NOTE | 2018-11-15 19:08 | NUR ---
Problems reprioritized. Patient report given, questions answered & plan of care reviewed with Meghan scruggs.
[2018-11-15] MEDS: traZODone 50mg tablet PO SCH (20:53)
[2018-11-15] MEDS: risperiDONE 0.25mg tablet PO SCH (20:53)
[2018-11-16] MEDS: vancomycin 250MG/10ML UD oral solution 10ML BOTTLE PO SCH ×4 (02:54→19:51)
[2018-11-16] MEDS: HYDROcodone/acetaminophen 10/325mg tab PO PRN ×5 (02:55→23:12)
[2018-11-16 04:43] VITALS: BP 150/80
[2018-11-16 06:13] LABS: BASOPHILS % (AUTO) 0.1 % (0-1); EOSINOPHILS % (AUTO) 0 % (0-6); HEMATOCRIT 22.8 % (42.0-52.0); HEMOGLOBIN 7.3 g/dl (14.0-17.9); LYMPHOCYTES # (AUTO) 0.9 X10'3 (1.1-4.8); LYMPHOCYTES % (AUTO) 9.6 % (21-51); MEAN CORPUSCULAR HEMOGLOBIN 26.8 PG (27.0-31.0); MEAN CORPUSCULAR HGB CONC 31.9 g/dL (33.0-36.5); MEAN CORPUSCULAR VOLUME 84.2 FL (78-98); MEAN PLATELET VOLUME 6.6 FL (7.4-10.4); MONOCYTES # (AUTO) 0.8 X10'3 (0-0.9); MONOCYTES % (AUTO) 8.2 % (2-12); NEUTROPHILS # (AUTO) 7.9 X10'3 (1.8-7.7); NEUTROPHILS % (AUTO) 82.1 % (42-75); PLATELET COUNT 549 X10'3 (140-440); RED BLOOD COUNT 2.71 X10'6 (4.70-6.10); RED CELL DISTRIBUTION WIDTH 18.6 % (11.5-14.5); WHITE BLOOD COUNT 9.6 X10'3 (4.5-11.0)
[2018-11-16 06:26] LABS: ALANINE AMINOTRANSFERASE 14 U/L (12-78); ALBUMIN 1.5 G/DL (3.4-5.0); ALBUMIN/GLOBULIN RATIO 0.3 (1.1-1.5); ALKALINE PHOSPHATASE 47 IU/L (46-116); ANION GAP 7 (8-16); ASPARTATE AMINO TRANSFERASE 6 U/L (10-37); BILIRUBIN,TOTAL 0.1 MG/DL (0.1-1.0); BLOOD UREA NITROGEN 9 MG/DL (7-18); BUN/CREATININE RATIO 10.3 (5.4-32.0); CALCIUM 8.1 MG/DL (8.5-10.1); CHLORIDE 100 MMOL/L (99-107); CREATININE 0.87 MG/DL (0.60-1.10); GLUCOSE 153 MG/DL (70-104); PHOSPHORUS 4.1 MG/DL (2.3-4.5); POTASSIUM 4.6 MMOL/L (3.5-5.1); SODIUM 134 MMOL/L (135-145); TOTAL CARBON DIOXIDE 27.2 MMOL/L (24-32); eGFR > 90 ML/MIN
--- NOTE | 2018-11-16 06:30 | NUR ---
Problems reprioritized. Patient report given, questions answered & plan of care reviewed with Laquita LARRY. Addendum: 11/16/18 at 0631 by Meghan Vu RN Amended: Links added.
[2018-11-16 07:00] VITALS: BP 135/72
--- NOTE | 2018-11-16 07:03 | NUR ---
Patient in room [facility]. I have received report from ISA LARRY and had the opportunity to ask questions and assume patient care.
[2018-11-16] MEDS: methylPREDNISolone sod succ 125mg/2ml vial IV SCH ×2 (07:33→19:51)
[2018-11-16] MEDS: mesalamine 1.2gm ER tablet PO SCH ×3 (07:34→21:25)
[2018-11-16] MEDS: propranolol 10mg tablet PO SCH ×2 (07:34→19:52)
[2018-11-16] MEDS: montelukast 10mg tablet PO SCH (07:34)
[2018-11-16] MEDS: lactobacillus rhamnosus 10,000 MMU CELLS/CAPSULE PO SCH ×2 (07:34→19:51)
[2018-11-16] MEDS: ferrous sulfate 325mg tablet PO SCH ×2 (07:34→19:52)
[2018-11-16] MEDS: loratadine 10mg tablet PO SCH (07:35)
[2018-11-16] MEDS: losartan 50mg tablet PO SCH (07:35)
[2018-11-16] MEDS: pantoprazole 40mg Tablet.DR PO SCH (07:35)
--- NOTE | 2018-11-16 07:42 | NUR ---
PT STATES A 01/13 PAIN. GAVE HIM NORCO. WATCHED PT SWALLOW (BLUE ) PAIN PILL.
[2018-11-16 09:34] LABS: NUCLEATED RED BLOOD CELLS 3 /100WBC (0-0); TOTAL CELLS COUNTED 100
[2018-11-16 09:38] LABS: ANISOCYTOSIS 2+; PLATELET ESTIMATE INCREASED
[2018-11-16 09:39] LABS: ELLIPTOCYTES FEW; POLYCHROMASIA 1+
[2018-11-16 09:40] LABS: SCHISTOCYTES FEW; TEAR DROP CELLS 1+
[2018-11-16 09:41] LABS: HYPOCHROMASIA 1+
[2018-11-16 11:00] VITALS: BP 133/78
--- NOTE | 2018-11-16 18:12 | NUR ---
GAVE REPORT TO YOUSIF LARRY
[2018-11-16 18:19] VITALS: BP 156/82
--- NOTE | 2018-11-16 18:19 | NUR ---
Patient in room [facility]. I have received report from LARON Coelho and had the opportunity to ask questions and assume patient care. Addendum: 11/16/18 at 1820 by Althea Howell RN Amended: Links added.
[2018-11-16] MEDS: traZODone 50mg tablet PO SCH (21:25)
[2018-11-16] MEDS: risperiDONE 0.25mg tablet PO SCH (21:25)
[2018-11-17] VITALS: BP 134/63
[2018-11-17] MEDS: vancomycin 250MG/10ML UD oral solution 10ML BOTTLE PO SCH ×3 (02:03→13:33)
[2018-11-17] MEDS: HYDROcodone/acetaminophen 10/325mg tab PO PRN ×3 (04:26→15:14)
[2018-11-17 05:10] LABS: ALANINE AMINOTRANSFERASE 17 U/L (12-78); ALBUMIN 1.7 G/DL (3.4-5.0); ALBUMIN/GLOBULIN RATIO 0.4 (1.1-1.5); ALKALINE PHOSPHATASE 46 IU/L (46-116); ANION GAP 6 (8-16); ASPARTATE AMINO TRANSFERASE 6 U/L (10-37); BILIRUBIN,TOTAL 0.2 MG/DL (0.1-1.0); BLOOD UREA NITROGEN 12 MG/DL (7-18); BUN/CREATININE RATIO 13.5 (5.4-32.0); CALCIUM 8.2 MG/DL (8.5-10.1); CHLORIDE 99 MMOL/L (99-107); CREATININE 0.89 MG/DL (0.60-1.10); GLUCOSE 121 MG/DL (70-104); PHOSPHORUS 5.1 MG/DL (2.3-4.5); POTASSIUM 4.7 MMOL/L (3.5-5.1); SODIUM 134 MMOL/L (135-145); TOTAL CARBON DIOXIDE 29.5 MMOL/L (24-32); TOTAL PROTEIN 6.1 G/DL (6.4-8.2); eGFR > 90 ML/MIN
[2018-11-17 05:11] LABS: BASOPHILS % (AUTO) 0.2 % (0-1); EOSINOPHILS % (AUTO) 0 % (0-6); HEMATOCRIT 23.1 % (42.0-52.0); HEMOGLOBIN 7.3 g/dl (14.0-17.9); LYMPHOCYTES # (AUTO) 0.9 X10'3 (1.1-4.8); LYMPHOCYTES % (AUTO) 8.5 % (21-51); MEAN CORPUSCULAR HEMOGLOBIN 26.6 PG (27.0-31.0); MEAN CORPUSCULAR HGB CONC 31.7 g/dL (33.0-36.5); MEAN CORPUSCULAR VOLUME 83.9 FL (78-98); MEAN PLATELET VOLUME 6.3 FL (7.4-10.4); MONOCYTES # (AUTO) 0.9 X10'3 (0-0.9); NEUTROPHILS % (AUTO) 83.3 % (42-75); PLATELET COUNT 534 X10'3 (140-440); RED BLOOD COUNT 2.75 X10'6 (4.70-6.10); RED CELL DISTRIBUTION WIDTH 19.2 % (11.5-14.5); WHITE BLOOD COUNT 10.8 X10'3 (4.5-11.0)
[2018-11-17 06:30] VITALS: BP 152/79
--- NOTE | 2018-11-17 06:35 | NUR ---
Patient in room [facility]. I have received report from LARON Sanders and had the opportunity to ask questions and assume patient care.
--- NOTE | 2018-11-17 06:42 | NUR ---
Problems reprioritized. Patient report given, questions answered & plan of care reviewed with LARON COLES. Addendum: 11/17/18 at 0642 by Althea Howell RN Amended: Links added.
[2018-11-17] MEDS: ferrous sulfate 325mg tablet PO SCH (09:39)
[2018-11-17] MEDS: pantoprazole 40mg Tablet.DR PO SCH (09:39)
[2018-11-17] MEDS: propranolol 10mg tablet PO SCH (09:39)
[2018-11-17] MEDS: mesalamine 1.2gm ER tablet PO SCH ×2 (09:39→13:33)
[2018-11-17] MEDS: methylPREDNISolone sod succ 125mg/2ml vial IV SCH (09:39)
[2018-11-17] MEDS: montelukast 10mg tablet PO SCH (09:40)
[2018-11-17] MEDS: loratadine 10mg tablet PO SCH (09:40)
[2018-11-17] MEDS: lactobacillus rhamnosus 10,000 MMU CELLS/CAPSULE PO SCH (09:40)
[2018-11-17] MEDS: losartan 50mg tablet PO SCH (09:53)
[2018-11-17 11:00] VITALS: BP 133/73
[2018-11-17] MEDS ORDERED: VANC125C5 PO (12:05)
[2018-11-17] MEDS ORDERED: PROP10TA10 PO (12:05)
[2018-11-17] MEDS ORDERED: PRED10TA23 PO (12:05)
--- NOTE | 2018-11-17 17:15 | NUR ---
DC inst provided to pt. IV DC'd, tip intact. Pt to have WC to front lobby after dinner & pt's mother arrives for his ride home.
--- NOTE | 2018-11-17 18:30 | NUR ---
Patient in room [facility]. I have received report from LARON Mo and had the opportunity to ask questions and assume patient care. Addendum: 11/17/18 at 1954 by Althea Howell RN Amended: Links added.
--- NOTE | 2018-11-17 18:55 | NUR ---
All instructions were given to pt by LARON Mo. Patient states he was given and understands all his instructions. Addendum: 11/18/18 at 0130 by Althea Howell RN Amended: Links added. Addendum: 11/18/18 at 0131 by Althea Howell RN LARON Joya was nurse today. gave all instructions to patient.
== END 2018-11-17 19:02 | disposition home or self-care (01) | DRG 245 ==
LOC: ER 20:46 → SUR 3N 22:42 → CMPBEDREQ 11-10 19:47
PROVIDERS: ADMIT Internal Medicine; ATTEND Family Medicine
PROC: 30233N1 Transfusion of Nonautologous Red Blood Cells into Peripheral Vein, Percutaneous Approach (ICD-10-PCS; principal; 2018-11-08)
PROC: 30233N1 Transfusion of Nonautologous Red Blood Cells into Peripheral Vein, Percutaneous Approach (ICD-10-PCS; 2018-11-09)
PROC: 30233N1 Transfusion of Nonautologous Red Blood Cells into Peripheral Vein, Percutaneous Approach (ICD-10-PCS; 2018-11-13)
PROC: 30233N1 Transfusion of Nonautologous Red Blood Cells into Peripheral Vein, Percutaneous Approach (ICD-10-PCS; 2018-11-14)
PROC: 5A09357 Assistance with Respiratory Ventilation, Less than 24 Consecutive Hours, Continuous Positive Airway Pressure (ICD-10-PCS; 2018-11-14)
DX: K51.011 Ulcerative (chronic) pancolitis with rectal bleeding (principal); E43 Unspecified severe protein-calorie malnutrition; N17.9 Acute kidney failure, unspecified; A04.72 Enterocolitis due to Clostridium difficile, not specified as recurrent; D62 Acute posthemorrhagic anemia; Z68.43 Body mass index [BMI] 50.0-59.9, adult; E66.2 Morbid (severe) obesity with alveolar hypoventilation; I10 Essential (primary) hypertension; F90.9 Attention-deficit hyperactivity disorder, unspecified type; E87.6 Hypokalemia; R60.0 Localized edema; Z79.899 Other long term (current) drug therapy
CPT/HCPCS: 36415; 71045; 80048; 80053; 81001; 82272; 82948; 83690; 83735; 84100; 85025; 85027; 85610; 85730; 86885; 86900; 86901; 86920; 87040; 87045; 87046; 87081; 87324; 87449; 87493; 89055; 93005; 93971; 94760; 96361; 96365; 96375; 99285; C9113; G0378; J1720; J1956; J2354; J2405; J2930; J3490; J7030; J7050; P9016

== ENCOUNTER 2018-11-19 13:53 | Inpatient (IN) | payer MEDICAID ==
[~2018-11-19] VITALS: Ht 167.6 cm; Wt 150.0 kg
[~2018-11-19 13:53] MED LIST changes: +PROP10TA10 PO; +VANC125C5 PO
[2018-11-19 14:33] LABS: BASOPHILS % (AUTO) 0.2 % (0-1); EOSINOPHILS # (AUTO) 0.2 X10'3 (0-0.9); EOSINOPHILS % (AUTO) 2.6 % (0-6); LYMPHOCYTES # (AUTO) 1.5 X10'3 (1.1-4.8); LYMPHOCYTES % (AUTO) 16.1 % (21-51); MEAN CORPUSCULAR HEMOGLOBIN 26.1 PG (27.0-31.0); MEAN CORPUSCULAR HGB CONC 31.6 g/dL (33.0-36.5); MEAN CORPUSCULAR VOLUME 82.6 FL (78-98); MONOCYTES # (AUTO) 0.7 X10'3 (0-0.9); MONOCYTES % (AUTO) 7.3 % (2-12); NEUTROPHILS # (AUTO) 6.9 X10'3 (1.8-7.7); NEUTROPHILS % (AUTO) 73.8 % (42-75); PLATELET COUNT 457 X10'3 (140-440); RED BLOOD COUNT 2.43 X10'6 (4.70-6.10); RED CELL DISTRIBUTION WIDTH 19.6 % (11.5-14.5); WHITE BLOOD COUNT 9.4 X10'3 (4.5-11.0)
[2018-11-19 14:39] LABS: HEMATOCRIT 20.1 % (42.0-52.0); HEMOGLOBIN 6.4 g/dl (14.0-17.9)
[2018-11-19 14:45] LABS: ALANINE AMINOTRANSFERASE 28 U/L (12-78); ALBUMIN 1.5 G/DL (3.4-5.0); ALBUMIN/GLOBULIN RATIO 0.4 (1.1-1.5); ALKALINE PHOSPHATASE 38 IU/L (46-116); ANION GAP 3 (8-16); ASPARTATE AMINO TRANSFERASE 11 U/L (10-37); BILIRUBIN,TOTAL 0.2 MG/DL (0.1-1.0); BLOOD UREA NITROGEN 9 MG/DL (7-18); BUN/CREATININE RATIO 10.8 (5.4-32.0); CALCIUM 7.5 MG/DL (8.5-10.1); CHLORIDE 103 MMOL/L (99-107); CREATININE 0.83 MG/DL (0.60-1.10); GLUCOSE 97 MG/DL (70-104); POTASSIUM 4.1 MMOL/L (3.5-5.1); SODIUM 136 MMOL/L (135-145); TOTAL PROTEIN 5.2 G/DL (6.4-8.2); eGFR > 90 ML/MIN
[2018-11-19 15:19] LABS: ANISOCYTOSIS 2+; NUCLEATED RED BLOOD CELLS 4 /100WBC (0-0); PLATELET ESTIMATE INCREASED; TOTAL CELLS COUNTED 100; TOXIC GRANULATION 1+
[2018-11-19 15:20] LABS: HYPOCHROMASIA 1+; POLYCHROMASIA 1+
[2018-11-19] MEDS ORDERED: ESOMEPRAZOLE 40 MG VIAL IV STA (15:21)
[2018-11-19] MEDS ORDERED: normal saline 1000ML IV soln IVB ONE (15:25)
[2018-11-19] MEDS ORDERED: hydrocortisone sod succ/PF 250mg/2ml inj. IV ONE (15:25)
[2018-11-19] MEDS ORDERED: hydrocortisone sod succ/PF 100mg/2ml inj. IV ONE (15:30)
[2018-11-19] MEDS ORDERED: morphine 4 MG/ML inj SYRINge IV ONE (16:00)
[2018-11-19] MEDS ORDERED: FERR325T29 PO (16:01)
[2018-11-19] MEDS ORDERED: TRAZ-251 PO (16:07)
[2018-11-19] MEDS ORDERED: DEXM20CP6 PO (16:07)
[2018-11-19] MEDS ORDERED: MESA1.2T PO (16:07)
[2018-11-19] MEDS ORDERED: acetaminophen 325mg tablet PO PRN ×2 (16:10)
[2018-11-19] MEDS ORDERED: magnesium 4gm in 100ml NS 100 ML IV PRN (16:10)
[2018-11-19] MEDS ORDERED: potassium Cl 20 mEq SR tablet PO PRN ×2 (16:10)
[2018-11-19] MEDS ORDERED: VANC125C5 PO (16:10)
[2018-11-19] MEDS ORDERED: ondansetron/PF 4mg/2ml inj IV PRN (16:10)
[2018-11-19] MEDS ORDERED: potassium CL 10mEq/100ml bag 100 ML IV PRN ×2 (16:10)
[2018-11-19] MEDS ORDERED: HYDROmorphone inj. 0.5 MG/0.5 ML DISP.SYRIN IV PRN (16:10)
[2018-11-19] MEDS ORDERED: magnesium Cl slow-release 64mg tablet PO PRN (16:10)
[2018-11-19] MEDS ORDERED: magnesium hydroxide 30ml (MOM) UD suspension PO PRN (16:10)
[2018-11-19] MEDS ORDERED: magnesium 2GM in 50ml NS 50 ML IV PRN (16:10)
[2018-11-19] MEDS ORDERED: mag hydrox/Alum hydrox/simeth 30ml oral suspension PO PRN (16:10)
[2018-11-19] MEDS ORDERED: traZODone 50mg tablet PO PRN (16:45)
[2018-11-19] MEDS ORDERED: albuterol 2.5 MG/3 ML nebule NEB PRN (17:10)
[2018-11-19 18:00] VITALS: BP 107/53
[2018-11-19 18:03] VITALS: BP 130/73
--- NOTE | 2018-11-19 19:01 | NUR ---
Patient in room [facility]. I have received report from Fanny LARRY and had the opportunity to ask questions and assume patient care.
[2018-11-19] MEDS: HYDROcodone/acetaminophen 10/325mg tab PO PRN (19:25)
[2018-11-19] MEDS: propranolol 10mg tablet PO SCH (19:25)
[2018-11-19 20:00] VITALS: BP 107/53
[2018-11-19] MEDS ORDERED: vancomycin 125mg/5ml ORAL solution 5ml UD bottle PO SCH (20:00)
[2018-11-19] MEDS ORDERED: temazepam 15mg capsule PO PRN (21:00)
[2018-11-19] MEDS: normal saline 1000ml 1,000 ML IV SCH (21:46)
[2018-11-19] MEDS: mesalamine 1.2gm ER tablet PO SCH (22:05)
[2018-11-19] MEDS: vancomycin 125mg/5ml ORAL solution 5ml UD bottle PO SCH (22:06)
[2018-11-19] MEDS: risperiDONE 0.5mg tablet PO SCH (22:06)
[2018-11-19] MEDS: HYDROmorphone 1 mg/ml syringe IV PRN (22:37)
[2018-11-19 23:01] VITALS: BP 110/75
[2018-11-19 23:16] VITALS: BP 125/67
[2018-11-20] VITALS (11 sets, daily range): BP systolic 110–151; BP diastolic 67–89
[2018-11-20] MEDS: normal saline 1000ml 1,000 ML IV SCH ×3 (02:06→22:06)
[2018-11-20] MEDS: K and/or MAG REPLACEMENT MC SCH ×2 (02:16→08:00)
[2018-11-20] MEDS: HYDROcodone/acetaminophen 10/325mg tab PO PRN ×2 (02:20→21:02)
[2018-11-20 05:12] LABS: BASOPHILS % (AUTO) 0.2 % (0-1); EOSINOPHILS # (AUTO) 0.2 X10'3 (0-0.9); EOSINOPHILS % (AUTO) 2.5 % (0-6); LYMPHOCYTES # (AUTO) 1.3 X10'3 (1.1-4.8); LYMPHOCYTES % (AUTO) 13.9 % (21-51); MEAN CORPUSCULAR HEMOGLOBIN 27.1 PG (27.0-31.0); MEAN CORPUSCULAR HGB CONC 32.5 g/dL (33.0-36.5); MEAN CORPUSCULAR VOLUME 83.3 FL (78-98); MEAN PLATELET VOLUME 6.1 FL (7.4-10.4); MONOCYTES # (AUTO) 0.8 X10'3 (0-0.9); MONOCYTES % (AUTO) 8.2 % (2-12); NEUTROPHILS % (AUTO) 75.2 % (42-75); PLATELET COUNT 386 X10'3 (140-440); RED CELL DISTRIBUTION WIDTH 17.6 % (11.5-14.5); WHITE BLOOD COUNT 9.3 X10'3 (4.5-11.0)
[2018-11-20 05:32] LABS: ALANINE AMINOTRANSFERASE 24 U/L (12-78); ALBUMIN 1.4 G/DL (3.4-5.0); ALBUMIN/GLOBULIN RATIO 0.4 (1.1-1.5); ALKALINE PHOSPHATASE 39 IU/L (46-116); ANION GAP 5 (8-16); ASPARTATE AMINO TRANSFERASE 11 U/L (10-37); BILIRUBIN,TOTAL 0.4 MG/DL (0.1-1.0); BLOOD UREA NITROGEN 9 MG/DL (7-18); CALCIUM 7.9 MG/DL (8.5-10.1); CHLORIDE 101 MMOL/L (99-107); GLUCOSE 92 MG/DL (70-104); MAGNESIUM 1.7 MG/DL (1.5-2.4); POTASSIUM 3.9 MMOL/L (3.5-5.1); SODIUM 132 MMOL/L (135-145); TOTAL CARBON DIOXIDE 26.5 MMOL/L (24-32); TOTAL PROTEIN 4.9 G/DL (6.4-8.2); eGFR > 90 ML/MIN
[2018-11-20 05:56] LABS: HEMATOCRIT 20.9 % (42.0-52.0); HEMOGLOBIN 6.8 g/dl (14.0-17.9)
--- NOTE | 2018-11-20 06:30 | NUR ---
Patient in room [facility]. I have received report from Bela LARRY and had the opportunity to ask questions and assume patient care.
--- NOTE | 2018-11-20 06:44 | NUR ---
Problems reprioritized. Patient report given, questions answered & plan of care reviewed with Raymon RN.
[2018-11-20] MEDS: montelukast 10mg tablet PO SCH (07:31)
[2018-11-20] MEDS: ferrous sulfate 325mg tablet PO SCH (07:31)
[2018-11-20] MEDS: propranolol 10mg tablet PO SCH ×2 (07:31→21:00)
[2018-11-20] MEDS: losartan 50mg tablet PO SCH (07:32)
[2018-11-20] MEDS: mesalamine 1.2gm ER tablet PO SCH ×3 (07:32→17:27)
[2018-11-20] MEDS: loratadine 10mg tablet PO SCH (07:32)
[2018-11-20] MEDS: vancomycin 125mg/5ml ORAL solution 5ml UD bottle PO SCH ×4 (07:33→21:26)
[2018-11-20] MEDS: HYDROmorphone 1 mg/ml syringe IV PRN ×3 (07:40→17:29)
[2018-11-20] MEDS: dextroamphetamine/amphetamine ER 20 MG CAP.SR.24H PO SCH (08:00)
[2018-11-20 15:29] LABS: C DIFF ANTIGEN NEGATIVE (NEGATIVE); C DIFF SPECIMEN=DIARRHEA? ACCEPTABLE; C DIFFICILE TOXINS A&B NEGATIVE (Neg)
[2018-11-20] MEDS ORDERED: methylPREDNISolone sod succ 125mg/2ml vial IV ONE (17:05)
--- NOTE | 2018-11-20 18:30 | NUR ---
Problems reprioritized. Patient report given, questions answered & plan of care reviewed with Channing LARRY.
[2018-11-20 18:54] LABS: HEMATOCRIT 25.2 % (42.0-52.0); HEMOGLOBIN 8.5 g/dl (14.0-17.9); MEAN CORPUSCULAR HEMOGLOBIN 28.3 PG (27.0-31.0); MEAN CORPUSCULAR HGB CONC 33.8 g/dL (33.0-36.5); MEAN CORPUSCULAR VOLUME 83.7 FL (78-98); MEAN PLATELET VOLUME 6.4 FL (7.4-10.4); PLATELET COUNT 464 X10'3 (140-440); RED BLOOD COUNT 3.01 X10'6 (4.70-6.10); RED CELL DISTRIBUTION WIDTH 17.6 % (11.5-14.5); WHITE BLOOD COUNT 10.4 X10'3 (4.5-11.0)
--- NOTE | 2018-11-20 19:09 | NUR ---
Patient in room [facility]. I have received report from Raymon LARRY and had the opportunity to ask questions and assume patient care.
[2018-11-20] MEDS: lactobacillus rhamnosus 10,000 MMU CELLS/CAPSULE PO SCH (21:00)
[2018-11-20] MEDS: methylPREDNISolone sod succ 125mg/2ml vial IV SCH (21:04)
[2018-11-20] MEDS: risperiDONE 0.5mg tablet PO SCH (21:25)
[2018-11-21] VITALS: BP 137/69
[2018-11-21] MEDS: HYDROcodone/acetaminophen 10/325mg tab PO PRN ×5 (03:03→22:22)
[2018-11-21 05:10] LABS: BASOPHILS % (AUTO) 0.5 % (0-1); EOSINOPHILS % (AUTO) 0.1 % (0-6); HEMATOCRIT 24.1 % (42.0-52.0); HEMOGLOBIN 8.2 g/dl (14.0-17.9); LYMPHOCYTES # (AUTO) 0.5 X10'3 (1.1-4.8); LYMPHOCYTES % (AUTO) 8.9 % (21-51); MEAN CORPUSCULAR HEMOGLOBIN 28.5 PG (27.0-31.0); MEAN CORPUSCULAR VOLUME 83.9 FL (78-98); MEAN PLATELET VOLUME 6.5 FL (7.4-10.4); MONOCYTES # (AUTO) 0.1 X10'3 (0-0.9); MONOCYTES % (AUTO) 1.8 % (2-12); NEUTROPHILS # (AUTO) 4.8 X10'3 (1.8-7.7); NEUTROPHILS % (AUTO) 88.7 % (42-75); PLATELET COUNT 426 X10'3 (140-440); RED BLOOD COUNT 2.87 X10'6 (4.70-6.10); RED CELL DISTRIBUTION WIDTH 17.1 % (11.5-14.5); WHITE BLOOD COUNT 5.5 X10'3 (4.5-11.0)
[2018-11-21 05:32] LABS: ALANINE AMINOTRANSFERASE 21 U/L (12-78); ALBUMIN 1.5 G/DL (3.4-5.0); ALBUMIN/GLOBULIN RATIO 0.4 (1.1-1.5); ALKALINE PHOSPHATASE 48 IU/L (46-116); ANION GAP 4 (8-16); ASPARTATE AMINO TRANSFERASE 6 U/L (10-37); BILIRUBIN,TOTAL 0.3 MG/DL (0.1-1.0); BLOOD UREA NITROGEN 7 MG/DL (7-18); BUN/CREATININE RATIO 8.2 (5.4-32.0); CALCIUM 8.3 MG/DL (8.5-10.1); CHLORIDE 100 MMOL/L (99-107); CREATININE 0.85 MG/DL (0.60-1.10); GLUCOSE 153 MG/DL (70-104); PHOSPHORUS 5.2 MG/DL (2.3-4.5); POTASSIUM 4.7 MMOL/L (3.5-5.1); SODIUM 132 MMOL/L (135-145); TOTAL CARBON DIOXIDE 28.5 MMOL/L (24-32); TOTAL PROTEIN 5.7 G/DL (6.4-8.2); eGFR > 90 ML/MIN
--- NOTE | 2018-11-21 06:18 | NUR ---
Problems reprioritized. Patient report given, questions answered & plan of care reviewed with Candy LARRY.
[2018-11-21] MEDS: K and/or MAG REPLACEMENT MC SCH (06:58)
[2018-11-21 07:00] VITALS: BP 109/69
[2018-11-21] MEDS: dextroamphetamine/amphetamine ER 20 MG CAP.SR.24H PO SCH (08:00)
[2018-11-21] MEDS: normal saline 1000ml 1,000 ML IV SCH (08:06)
[2018-11-21] MEDS: loratadine 10mg tablet PO SCH (09:03)
[2018-11-21] MEDS: lactobacillus rhamnosus 10,000 MMU CELLS/CAPSULE PO SCH ×2 (09:03→20:55)
[2018-11-21] MEDS: propranolol 10mg tablet PO SCH ×2 (09:03→20:55)
[2018-11-21] MEDS: mesalamine 1.2gm ER tablet PO SCH ×3 (09:03→17:09)
[2018-11-21] MEDS: montelukast 10mg tablet PO SCH (09:03)
[2018-11-21] MEDS: losartan 50mg tablet PO SCH (09:03)
[2018-11-21] MEDS: ferrous sulfate 325mg tablet PO SCH (09:04)
[2018-11-21] MEDS: vancomycin 125mg/5ml ORAL solution 5ml UD bottle PO SCH ×4 (09:04→20:55)
[2018-11-21] MEDS: methylPREDNISolone sod succ 125mg/2ml vial IV SCH ×2 (09:04→20:55)
[2018-11-21 11:00] VITALS: BP 111/73
[2018-11-21 18:00] VITALS: BP 126/66
--- NOTE | 2018-11-21 18:10 | NUR ---
Problems reprioritized. Patient report given, questions answered & plan of care reviewed with SINCERE LARRY.
--- NOTE | 2018-11-21 18:37 | NUR ---
Patient in room [facility]. I have received report from Candy LARRY and had the opportunity to ask questions and assume patient care.
--- NOTE | 2018-11-21 19:26 | NUR ---
Problems reprioritized. Patient report given, questions answered & plan of care reviewed with Alexis LARRY.
--- NOTE | 2018-11-21 19:27 | NUR ---
Patient in room [facility]. I have received report from Channing LARRY and had the opportunity to ask questions and assume patient care.
[2018-11-21] MEDS: risperiDONE 0.5mg tablet PO SCH (20:55)
[2018-11-22] VITALS: BP 134/72
[2018-11-22] MEDS: HYDROcodone/acetaminophen 10/325mg tab PO PRN ×5 (04:16→21:28)
--- NOTE | 2018-11-22 06:28 | NUR ---
Problems reprioritized. Patient report given, questions answered & plan of care reviewed with Brenda LARRY.
[2018-11-22 07:03] LABS: BASOPHILS % (AUTO) 0.2 % (0-1); EOSINOPHILS % (AUTO) 0 % (0-6); HEMATOCRIT 24.6 % (42.0-52.0); LYMPHOCYTES # (AUTO) 0.8 X10'3 (1.1-4.8); LYMPHOCYTES % (AUTO) 8.1 % (21-51); MEAN CORPUSCULAR HEMOGLOBIN 27.8 PG (27.0-31.0); MEAN CORPUSCULAR HGB CONC 32.7 g/dL (33.0-36.5); MEAN CORPUSCULAR VOLUME 85.1 FL (78-98); MEAN PLATELET VOLUME 6.2 FL (7.4-10.4); MONOCYTES # (AUTO) 0.7 X10'3 (0-0.9); MONOCYTES % (AUTO) 6.8 % (2-12); NEUTROPHILS # (AUTO) 8.9 X10'3 (1.8-7.7); NEUTROPHILS % (AUTO) 84.9 % (42-75); PLATELET COUNT 470 X10'3 (140-440); RED BLOOD COUNT 2.89 X10'6 (4.70-6.10); RED CELL DISTRIBUTION WIDTH 17.7 % (11.5-14.5); WHITE BLOOD COUNT 10.4 X10'3 (4.5-11.0)
[2018-11-22 07:18] LABS: ALANINE AMINOTRANSFERASE 18 U/L (12-78); ALBUMIN 1.6 G/DL (3.4-5.0); ALBUMIN/GLOBULIN RATIO 0.4 (1.1-1.5); ALKALINE PHOSPHATASE 48 IU/L (46-116); ANION GAP 1 (8-16); ASPARTATE AMINO TRANSFERASE 6 U/L (10-37); BILIRUBIN,TOTAL 0.2 MG/DL (0.1-1.0); BLOOD UREA NITROGEN 9 MG/DL (7-18); BUN/CREATININE RATIO 9.7 (5.4-32.0); CALCIUM 8.6 MG/DL (8.5-10.1); CHLORIDE 101 MMOL/L (99-107); CREATININE 0.93 MG/DL (0.60-1.10); GLUCOSE 124 MG/DL (70-104); MAGNESIUM 2.2 MG/DL (1.5-2.4); PHOSPHORUS 5.5 MG/DL (2.3-4.5); POTASSIUM 4.4 MMOL/L (3.5-5.1); SODIUM 134 MMOL/L (135-145); TOTAL CARBON DIOXIDE 32.1 MMOL/L (24-32); TOTAL PROTEIN 5.7 G/DL (6.4-8.2); eGFR > 90 ML/MIN
[2018-11-22 07:23] VITALS: BP 157/76
[2018-11-22] MEDS: losartan 50mg tablet PO SCH (07:28)
[2018-11-22] MEDS: loratadine 10mg tablet PO SCH (07:28)
[2018-11-22] MEDS: montelukast 10mg tablet PO SCH (07:28)
[2018-11-22] MEDS: ferrous sulfate 325mg tablet PO SCH (07:28)
[2018-11-22] MEDS: propranolol 10mg tablet PO SCH ×2 (07:28→20:35)
[2018-11-22] MEDS: vancomycin 125mg/5ml ORAL solution 5ml UD bottle PO SCH ×4 (07:28→20:34)
[2018-11-22] MEDS: lactobacillus rhamnosus 10,000 MMU CELLS/CAPSULE PO SCH ×2 (07:28→20:35)
[2018-11-22] MEDS: mesalamine 1.2gm ER tablet PO SCH ×3 (07:28→17:16)
[2018-11-22] MEDS: methylPREDNISolone sod succ 125mg/2ml vial IV SCH ×2 (07:29→20:35)
[2018-11-22] MEDS: K and/or MAG REPLACEMENT MC SCH (07:39)
[2018-11-22] MEDS: dextroamphetamine/amphetamine ER 20 MG CAP.SR.24H PO SCH ×2 (07:40→18:07)
[2018-11-22 11:49] VITALS: BP 142/68
[2018-11-22 18:00] VITALS: BP 167/84
--- NOTE | 2018-11-22 18:31 | NUR ---
Patient in room [facility]. I have received report from Brenda LARRY and had the opportunity to ask questions and assume patient care.
[2018-11-22] MEDS: risperiDONE 0.5mg tablet PO SCH (20:34)
[2018-11-23] VITALS: BP 146/72
[2018-11-23] MEDS: HYDROcodone/acetaminophen 10/325mg tab PO PRN ×4 (05:11→23:23)
--- NOTE | 2018-11-23 06:35 | NUR ---
Patient in room [facility]. I have received report from LARON Snell and had the opportunity to ask questions and assume patient care.
--- NOTE | 2018-11-23 06:36 | NUR ---
Problems reprioritized. Patient report given, questions answered & plan of care reviewed with Clementina LARRY.
[2018-11-23 07:00] LABS: BASOPHILS % (AUTO) 0.2 % (0-1); EOSINOPHILS % (AUTO) 0 % (0-6); HEMOGLOBIN 8.2 g/dl (14.0-17.9); LYMPHOCYTES # (AUTO) 0.7 X10'3 (1.1-4.8); MEAN CORPUSCULAR HEMOGLOBIN 27.9 PG (27.0-31.0); MEAN CORPUSCULAR VOLUME 84.4 FL (78-98); MONOCYTES # (AUTO) 0.7 X10'3 (0-0.9); MONOCYTES % (AUTO) 7.9 % (2-12); NEUTROPHILS # (AUTO) 7.1 X10'3 (1.8-7.7); NEUTROPHILS % (AUTO) 83.9 % (42-75); PLATELET COUNT 476 X10'3 (140-440); RED BLOOD COUNT 2.96 X10'6 (4.70-6.10); RED CELL DISTRIBUTION WIDTH 17.7 % (11.5-14.5); WHITE BLOOD COUNT 8.5 X10'3 (4.5-11.0)
[2018-11-23 07:19] LABS: ALANINE AMINOTRANSFERASE 15 U/L (12-78); ALBUMIN 1.8 G/DL (3.4-5.0); ALBUMIN/GLOBULIN RATIO 0.4 (1.1-1.5); ALKALINE PHOSPHATASE 52 IU/L (46-116); ANION GAP 5 (8-16); ASPARTATE AMINO TRANSFERASE 7 U/L (10-37); BILIRUBIN,TOTAL 0.2 MG/DL (0.1-1.0); BLOOD UREA NITROGEN 10 MG/DL (7-18); BUN/CREATININE RATIO 12.3 (5.4-32.0); CALCIUM 8.7 MG/DL (8.5-10.1); CHLORIDE 99 MMOL/L (99-107); CREATININE 0.81 MG/DL (0.60-1.10); GLUCOSE 124 MG/DL (70-104); PHOSPHORUS 4.1 MG/DL (2.3-4.5); POTASSIUM 4.2 MMOL/L (3.5-5.1); SODIUM 134 MMOL/L (135-145); eGFR > 90 ML/MIN
[2018-11-23 07:24] VITALS: BP 155/84
[2018-11-23] MEDS: mesalamine 1.2gm ER tablet PO SCH ×3 (07:41→17:22)
[2018-11-23] MEDS: ferrous sulfate 325mg tablet PO SCH (07:42)
[2018-11-23] MEDS: loratadine 10mg tablet PO SCH (07:42)
[2018-11-23] MEDS: propranolol 10mg tablet PO SCH ×2 (07:42→20:33)
[2018-11-23] MEDS: losartan 50mg tablet PO SCH (07:42)
[2018-11-23] MEDS: lactobacillus rhamnosus 10,000 MMU CELLS/CAPSULE PO SCH ×2 (07:42→20:32)
[2018-11-23] MEDS: methylPREDNISolone sod succ 125mg/2ml vial IV SCH ×2 (07:42→20:33)
[2018-11-23] MEDS: montelukast 10mg tablet PO SCH (07:43)
[2018-11-23] MEDS: vancomycin 125mg/5ml ORAL solution 5ml UD bottle PO SCH ×4 (07:44→20:39)
[2018-11-23] MEDS: K and/or MAG REPLACEMENT MC SCH (08:00)
[2018-11-23] MEDS: dextroamphetamine/amphetamine ER 20 MG CAP.SR.24H PO SCH (09:50)
[2018-11-23 11:59] VITALS: BP 154/77
--- NOTE | 2018-11-23 18:25 | NUR ---
Problems reprioritized. Patient report given, questions answered & plan of care reviewed with LARON Colmenares.
--- NOTE | 2018-11-23 18:32 | NUR ---
Received report from Clementina LARRY pt is on RA eating dinner in no apparent distress
[2018-11-23 19:00] VITALS: BP 144/84
[2018-11-23] MEDS: risperiDONE 0.5mg tablet PO SCH (20:33)
[2018-11-24] VITALS: BP 128/61
[2018-11-24] MEDS: HYDROcodone/acetaminophen 10/325mg tab PO PRN ×3 (04:26→21:31)
[2018-11-24 05:20] LABS: BASOPHILS % (AUTO) 0.1 % (0-1); EOSINOPHILS % (AUTO) 0 % (0-6); HEMATOCRIT 23.9 % (42.0-52.0); HEMOGLOBIN 7.9 g/dl (14.0-17.9); LYMPHOCYTES # (AUTO) 0.7 X10'3 (1.1-4.8); LYMPHOCYTES % (AUTO) 8.6 % (21-51); MEAN CORPUSCULAR HEMOGLOBIN 28.1 PG (27.0-31.0); MEAN CORPUSCULAR HGB CONC 33.2 g/dL (33.0-36.5); MEAN CORPUSCULAR VOLUME 84.7 FL (78-98); MEAN PLATELET VOLUME 5.9 FL (7.4-10.4); MONOCYTES # (AUTO) 0.6 X10'3 (0-0.9); MONOCYTES % (AUTO) 6.7 % (2-12); NEUTROPHILS # (AUTO) 7.3 X10'3 (1.8-7.7); NEUTROPHILS % (AUTO) 84.6 % (42-75); PLATELET COUNT 471 X10'3 (140-440); RED BLOOD COUNT 2.82 X10'6 (4.70-6.10); RED CELL DISTRIBUTION WIDTH 18.2 % (11.5-14.5); WHITE BLOOD COUNT 8.6 X10'3 (4.5-11.0)
--- NOTE | 2018-11-24 06:06 | NUR ---
Gave report to Juliet LARRY pt is resting on RA in no apparent distress, call light and items of freq use within reach.
--- NOTE | 2018-11-24 06:10 | NUR ---
Patient in room [facility]. I have received report from LARON Colmenares and had the opportunity to ask questions and assume patient care.
[2018-11-24 06:23] LABS: ALANINE AMINOTRANSFERASE 18 U/L (12-78); ALBUMIN 1.8 G/DL (3.4-5.0); ALBUMIN/GLOBULIN RATIO 0.4 (1.1-1.5); ALKALINE PHOSPHATASE 48 IU/L (46-116); ANION GAP 4 (8-16); ASPARTATE AMINO TRANSFERASE 6 U/L (10-37); BILIRUBIN,TOTAL 0.1 MG/DL (0.1-1.0); BLOOD UREA NITROGEN 12 MG/DL (7-18); BUN/CREATININE RATIO 15.4 (5.4-32.0); CALCIUM 8.5 MG/DL (8.5-10.1); CHLORIDE 99 MMOL/L (99-107); CREATININE 0.78 MG/DL (0.60-1.10); GLUCOSE 130 MG/DL (70-104); PHOSPHORUS 3.9 MG/DL (2.3-4.5); POTASSIUM 4.4 MMOL/L (3.5-5.1); SODIUM 133 MMOL/L (135-145); TOTAL CARBON DIOXIDE 30.2 MMOL/L (24-32); eGFR > 90 ML/MIN
[2018-11-24 07:00] VITALS: BP 148/90
[2018-11-24] MEDS: mesalamine 1.2gm ER tablet PO SCH ×3 (07:58→16:41)
[2018-11-24] MEDS: lactobacillus rhamnosus 10,000 MMU CELLS/CAPSULE PO SCH ×2 (07:59→20:42)
[2018-11-24] MEDS: K and/or MAG REPLACEMENT MC SCH (08:00)
[2018-11-24] MEDS: methylPREDNISolone sod succ 125mg/2ml vial IV SCH ×2 (08:01→20:43)
[2018-11-24] MEDS: ferrous sulfate 325mg tablet PO SCH (08:01)
[2018-11-24] MEDS: montelukast 10mg tablet PO SCH (08:01)
[2018-11-24] MEDS: vancomycin 125mg/5ml ORAL solution 5ml UD bottle PO SCH ×4 (08:01→20:42)
[2018-11-24] MEDS: loratadine 10mg tablet PO SCH (08:01)
[2018-11-24] MEDS: losartan 50mg tablet PO SCH (08:01)
[2018-11-24] MEDS: propranolol 10mg tablet PO SCH ×2 (08:01→20:42)
[2018-11-24] MEDS: dextroamphetamine/amphetamine ER 20 MG CAP.SR.24H PO SCH (09:46)
[2018-11-24 11:00] VITALS: BP 144/75
--- NOTE | 2018-11-24 12:55 | NUR ---
Initial: Pt admit w/ multiple bloody diarrhea BM's hx UC found to have LGIB r/t UC. Diarrhea resolved per MD note. Pt seen by NIKI less than 2 weeks ago for UC ed and has had frequent admits for UC complications. C.diff negative this admit. Pt PO 100% regular meals and still hungry per RN; double proteins TIDWM added for additional needs. NIKI d/w RN to advance to low-residue diet per MD approval given hx. Per GI MD note will be trying biologics and if not successful may need colectomy. Will continue to monitor. Rec: 1. advance diet to low-residue 2. double proteins TIDWM 3. weekly wts Addendum: 11/24/18 at [address] Amended: Links added.
--- NOTE | 2018-11-24 18:15 | NUR ---
Received report from Juliet LARRY pt is awake and alert walking around room in no apparent distress, call light and items of freq use within reach.
--- NOTE | 2018-11-24 18:27 | NUR ---
Problems reprioritized. Patient report given, questions answered & plan of care reviewed with LARON Colmenares.
[2018-11-24 19:00] VITALS: BP 143/77
[2018-11-24] MEDS: risperiDONE 0.5mg tablet PO SCH (20:42)
[2018-11-25] VITALS: BP 134/69
[2018-11-25] MEDS: HYDROcodone/acetaminophen 10/325mg tab PO PRN ×2 (04:51→12:15)
[2018-11-25 05:52] LABS: BASOPHILS % (AUTO) 0.1 % (0-1); EOSINOPHILS % (AUTO) 0 % (0-6); LYMPHOCYTES # (AUTO) 1.2 X10'3 (1.1-4.8); LYMPHOCYTES % (AUTO) 10.9 % (21-51); MEAN CORPUSCULAR HEMOGLOBIN 27.3 PG (27.0-31.0); MEAN CORPUSCULAR HGB CONC 32.1 g/dL (33.0-36.5); MEAN PLATELET VOLUME 6.1 FL (7.4-10.4); MONOCYTES # (AUTO) 0.9 X10'3 (0-0.9); MONOCYTES % (AUTO) 8.2 % (2-12); NEUTROPHILS # (AUTO) 8.9 X10'3 (1.8-7.7); NEUTROPHILS % (AUTO) 80.8 % (42-75); PLATELET COUNT 491 X10'3 (140-440); RED BLOOD COUNT 2.93 X10'6 (4.70-6.10); RED CELL DISTRIBUTION WIDTH 17.9 % (11.5-14.5)
--- NOTE | 2018-11-25 06:10 | NUR ---
Patient in room [facility]. I have received report from LARON Colmenares and had the opportunity to ask questions and assume patient care.
[2018-11-25 06:23] LABS: ALANINE AMINOTRANSFERASE 19 U/L (12-78); ALBUMIN 1.9 G/DL (3.4-5.0); ALBUMIN/GLOBULIN RATIO 0.5 (1.1-1.5); ALKALINE PHOSPHATASE 54 IU/L (46-116); ANION GAP 4 (8-16); ASPARTATE AMINO TRANSFERASE 6 U/L (10-37); BILIRUBIN,TOTAL 0.2 MG/DL (0.1-1.0); BLOOD UREA NITROGEN 10 MG/DL (7-18); BUN/CREATININE RATIO 12.2 (5.4-32.0); CALCIUM 8.8 MG/DL (8.5-10.1); CHLORIDE 100 MMOL/L (99-107); CREATININE 0.82 MG/DL (0.60-1.10); GLUCOSE 118 MG/DL (70-104); MAGNESIUM 1.9 MG/DL (1.5-2.4); PHOSPHORUS 4.2 MG/DL (2.3-4.5); POTASSIUM 4.2 MMOL/L (3.5-5.1); SODIUM 135 MMOL/L (135-145); TOTAL CARBON DIOXIDE 31.1 MMOL/L (24-32); TOTAL PROTEIN 6.1 G/DL (6.4-8.2); eGFR > 90 ML/MIN
[2018-11-25 07:00] VITALS: BP 131/87
[2018-11-25] MEDS: ferrous sulfate 325mg tablet PO SCH (07:33)
[2018-11-25] MEDS: loratadine 10mg tablet PO SCH (07:33)
[2018-11-25] MEDS: mesalamine 1.2gm ER tablet PO SCH ×3 (07:33→17:37)
[2018-11-25] MEDS: lactobacillus rhamnosus 10,000 MMU CELLS/CAPSULE PO SCH ×2 (07:33→20:33)
[2018-11-25] MEDS: montelukast 10mg tablet PO SCH (07:34)
[2018-11-25] MEDS: propranolol 10mg tablet PO SCH ×2 (07:34→20:33)
[2018-11-25] MEDS: losartan 50mg tablet PO SCH (07:34)
[2018-11-25] MEDS: vancomycin 125mg/5ml ORAL solution 5ml UD bottle PO SCH ×4 (07:34→20:33)
[2018-11-25] MEDS: methylPREDNISolone sod succ 125mg/2ml vial IV SCH ×2 (07:34→20:33)
[2018-11-25] MEDS: dextroamphetamine/amphetamine ER 20 MG CAP.SR.24H PO SCH (07:38)
[2018-11-25] MEDS: K and/or MAG REPLACEMENT MC SCH (08:00)
[2018-11-25 11:00] VITALS: BP 140/91
--- NOTE | 2018-11-25 11:41 | NUR ---
Extended PIV inserted to left upper arm cephalic vein after 1 failed attempt to the right upper arm cephalic vein using ultrasound. Meg well Addendum: 11/25/18 at 1142 by Ruby Wooten RN Amended: Links added.
[2018-11-25] MEDS: HYDROcodone/acetaminophen 5mg/325mg tablet PO PRN (17:37)
--- NOTE | 2018-11-25 18:14 | NUR ---
Problems reprioritized. Patient report given, questions answered & plan of care reviewed with LARON Colmenares.
--- NOTE | 2018-11-25 18:14 | NUR ---
Received report from Juliet LARRY pt is awake on RA eating dinner in no apparent distress, sitting on side on bed, call light and items of freq use within reach
[2018-11-25 19:00] VITALS: BP 130/66
[2018-11-25] MEDS: risperiDONE 0.5mg tablet PO SCH (20:33)
[2018-11-26 00:12] VITALS: BP 155/87
[2018-11-26] MEDS: HYDROcodone/acetaminophen 10/325mg tab PO PRN ×4 (04:39→20:02)
[2018-11-26 05:33] LABS: BASOPHILS % (AUTO) 0.2 % (0-1); EOSINOPHILS % (AUTO) 0.1 % (0-6); HEMATOCRIT 24.7 % (42.0-52.0); HEMOGLOBIN 8.1 g/dl (14.0-17.9); LYMPHOCYTES # (AUTO) 0.9 X10'3 (1.1-4.8); MEAN CORPUSCULAR HEMOGLOBIN 27.7 PG (27.0-31.0); MEAN CORPUSCULAR HGB CONC 32.6 g/dL (33.0-36.5); MEAN CORPUSCULAR VOLUME 85.1 FL (78-98); MEAN PLATELET VOLUME 6.1 FL (7.4-10.4); MONOCYTES # (AUTO) 0.6 X10'3 (0-0.9); MONOCYTES % (AUTO) 6.4 % (2-12); NEUTROPHILS # (AUTO) 8.5 X10'3 (1.8-7.7); NEUTROPHILS % (AUTO) 84.3 % (42-75); PLATELET COUNT 551 X10'3 (140-440); RED BLOOD COUNT 2.91 X10'6 (4.70-6.10); RED CELL DISTRIBUTION WIDTH 17.6 % (11.5-14.5); WHITE BLOOD COUNT 10.1 X10'3 (4.5-11.0)
[2018-11-26 05:44] LABS: ALANINE AMINOTRANSFERASE 27 U/L (12-78); ALBUMIN 1.9 G/DL (3.4-5.0); ALBUMIN/GLOBULIN RATIO 0.5 (1.1-1.5); ALKALINE PHOSPHATASE 55 IU/L (46-116); ANION GAP 6 (8-16); ASPARTATE AMINO TRANSFERASE 9 U/L (10-37); BILIRUBIN,TOTAL 0.2 MG/DL (0.1-1.0); BLOOD UREA NITROGEN 13 MG/DL (7-18); BUN/CREATININE RATIO 15.3 (5.4-32.0); CALCIUM 8.7 MG/DL (8.5-10.1); CHLORIDE 101 MMOL/L (99-107); CREATININE 0.85 MG/DL (0.60-1.10); GLUCOSE 149 MG/DL (70-104); PHOSPHORUS 4.5 MG/DL (2.3-4.5); POTASSIUM 4.3 MMOL/L (3.5-5.1); SODIUM 137 MMOL/L (135-145); TOTAL CARBON DIOXIDE 29.7 MMOL/L (24-32); TOTAL PROTEIN 6.1 G/DL (6.4-8.2); eGFR > 90 ML/MIN
--- NOTE | 2018-11-26 06:17 | NUR ---
Gave report to Shayna LARRY pt is resting on RA in no apparent distress, call light and items of freq use within reach.
[2018-11-26] MEDS: K and/or MAG REPLACEMENT MC SCH (06:55)
[2018-11-26 07:07] LABS: ANISOCYTOSIS 1+; HYPOCHROMASIA 2+; PLATELET ESTIMATE INCREASED; TOTAL CELLS COUNTED 100
[2018-11-26 07:08] LABS: SCHISTOCYTES FEW
[2018-11-26 07:09] LABS: POLYCHROMASIA 1+
[2018-11-26 07:10] LABS: ELLIPTOCYTES FEW; TEAR DROP CELLS FEW
[2018-11-26 07:16] VITALS: BP 129/72
[2018-11-26] MEDS: lactobacillus rhamnosus 10,000 MMU CELLS/CAPSULE PO SCH ×2 (07:28→20:02)
[2018-11-26] MEDS: ferrous sulfate 325mg tablet PO SCH (07:28)
[2018-11-26] MEDS: mesalamine 1.2gm ER tablet PO SCH ×3 (07:28→17:16)
[2018-11-26] MEDS: propranolol 10mg tablet PO SCH ×2 (07:28→20:02)
[2018-11-26] MEDS: loratadine 10mg tablet PO SCH (07:29)
[2018-11-26] MEDS: losartan 50mg tablet PO SCH (07:29)
[2018-11-26] MEDS: montelukast 10mg tablet PO SCH (07:29)
[2018-11-26] MEDS: vancomycin 125mg/5ml ORAL solution 5ml UD bottle PO SCH ×4 (07:30→20:02)
[2018-11-26] MEDS: methylPREDNISolone sod succ 125mg/2ml vial IV SCH ×2 (07:31→20:02)
[2018-11-26] MEDS: dextroamphetamine/amphetamine ER 20 MG CAP.SR.24H PO SCH (08:47)
[2018-11-26 09:57] LABS: HBSAG SCREEN Negative; HEP A AB, IGM Negative; HEP B CORE AB, IGM Negative
[2018-11-26 10:01] LABS: HEPATITIS C ANTIBODY SEE COMMENTS
--- NOTE | 2018-11-26 11:34 | NUR ---
Reassessment: Pt continues on abx and steroids. Per MD note pt clinically improving slowly. Patient continues meeting nutrient needs with documented 75-100% PO intake. [facility] 11/26. Will continue to follow. Rec: 1. advance diet to low-residue 2. double proteins TIDWM 3. weekly wts Addendum: 11/26/18 at [address] Amended: Links added.
[2018-11-26 11:39] VITALS: BP 131/81
--- NOTE | 2018-11-26 18:50 | NUR ---
Problems reprioritized. Patient report given, questions answered & plan of care reviewed with Yamel LARRY. Pt sleeping comfortably, even rise and fall of chest.
[2018-11-26 20:00] VITALS: BP 140/71
[2018-11-26] MEDS: risperiDONE 0.5mg tablet PO SCH (20:02)
[2018-11-27 00:10] VITALS: BP 130/74
--- NOTE | 2018-11-27 02:11 | NUR ---
Patient in room [facility]. I have received report from LARON Corral and had the opportunity to ask questions and assume patient care. Addendum: 11/27/18 at 0211 by Yamel Harrison RN Amended: Links added.
[2018-11-27] MEDS: HYDROcodone/acetaminophen 10/325mg tab PO PRN ×4 (03:45→21:43)
[2018-11-27 04:46] LABS: BASOPHILS % (AUTO) 0.2 % (0-1); EOSINOPHILS % (AUTO) 0 % (0-6); HEMATOCRIT 23.2 % (42.0-52.0); HEMOGLOBIN 7.6 g/dl (14.0-17.9); LYMPHOCYTES # (AUTO) 0.8 X10'3 (1.1-4.8); MEAN CORPUSCULAR HEMOGLOBIN 27.3 PG (27.0-31.0); MEAN CORPUSCULAR HGB CONC 32.6 g/dL (33.0-36.5); MEAN PLATELET VOLUME 5.8 FL (7.4-10.4); MONOCYTES # (AUTO) 0.5 X10'3 (0-0.9); MONOCYTES % (AUTO) 5.8 % (2-12); PLATELET COUNT 508 X10'3 (140-440); RED BLOOD COUNT 2.76 X10'6 (4.70-6.10); RED CELL DISTRIBUTION WIDTH 17.8 % (11.5-14.5); WHITE BLOOD COUNT 8.3 X10'3 (4.5-11.0)
[2018-11-27 04:57] LABS: ALANINE AMINOTRANSFERASE 28 U/L (12-78); ALBUMIN 1.9 G/DL (3.4-5.0); ALBUMIN/GLOBULIN RATIO 0.5 (1.1-1.5); ALKALINE PHOSPHATASE 49 IU/L (46-116); ANION GAP 1 (8-16); ASPARTATE AMINO TRANSFERASE 8 U/L (10-37); BILIRUBIN,TOTAL 0.2 MG/DL (0.1-1.0); BLOOD UREA NITROGEN 13 MG/DL (7-18); BUN/CREATININE RATIO 17.6 (5.4-32.0); CALCIUM 8.6 MG/DL (8.5-10.1); CHLORIDE 101 MMOL/L (99-107); CREATININE 0.74 MG/DL (0.60-1.10); GLUCOSE 146 MG/DL (70-104); PHOSPHORUS 4.8 MG/DL (2.3-4.5); POTASSIUM 4.8 MMOL/L (3.5-5.1); SODIUM 136 MMOL/L (135-145); TOTAL CARBON DIOXIDE 33.8 MMOL/L (24-32); TOTAL PROTEIN 5.9 G/DL (6.4-8.2); eGFR > 90 ML/MIN
--- NOTE | 2018-11-27 06:15 | NUR ---
Patient in room [facility]. I have received report from LARON Montesinos and had the opportunity to ask questions and assume patient care.
[2018-11-27 06:20] LABS: ANISOCYTOSIS 1+; ELLIPTOCYTES FEW; HYPOCHROMASIA 2+; PLATELET ESTIMATE INCREASED; POLYCHROMASIA 1+; SCHISTOCYTES FEW; TEAR DROP CELLS FEW; TOTAL CELLS COUNTED 100
--- NOTE | 2018-11-27 06:33 | NUR ---
Problems reprioritized. Patient report given, questions answered & plan of care reviewed with LARON Mcrae. Addendum: 11/27/18 at 0634 by Yamel Harrison RN Amended: Links added.
[2018-11-27 07:27] VITALS: BP 117/50
[2018-11-27] MEDS: K and/or MAG REPLACEMENT MC SCH (08:00)
[2018-11-27] MEDS: methylPREDNISolone sod succ 125mg/2ml vial IV SCH ×2 (08:03→20:30)
[2018-11-27] MEDS: mesalamine 1.2gm ER tablet PO SCH ×3 (08:03→17:11)
[2018-11-27] MEDS: losartan 50mg tablet PO SCH (08:03)
[2018-11-27] MEDS: loratadine 10mg tablet PO SCH (08:03)
[2018-11-27] MEDS: vancomycin 125mg/5ml ORAL solution 5ml UD bottle PO SCH ×4 (08:04→20:30)
[2018-11-27] MEDS: propranolol 10mg tablet PO SCH ×2 (08:04→20:29)
[2018-11-27] MEDS: ferrous sulfate 325mg tablet PO SCH (08:04)
[2018-11-27] MEDS: lactobacillus rhamnosus 10,000 MMU CELLS/CAPSULE PO SCH ×2 (08:04→20:29)
[2018-11-27] MEDS: montelukast 10mg tablet PO SCH (08:04)
[2018-11-27] MEDS: dextroamphetamine/amphetamine ER 20 MG CAP.SR.24H PO SCH (08:24)
[2018-11-27 11:30] VITALS: BP 108/54
--- NOTE | 2018-11-27 18:05 | NUR ---
Patient in room [facility]. I have received report from Clementina LARRY and had the opportunity to ask questions and assume patient care.
--- NOTE | 2018-11-27 18:10 | NUR ---
Problems reprioritized. Patient report given, questions answered & plan of care reviewed with LARON Espinoza.
[2018-11-27 20:00] VITALS: BP 155/83
[2018-11-27] MEDS: risperiDONE 0.5mg tablet PO SCH (20:30)
[2018-11-28] VITALS: BP 149/52
[2018-11-28] MEDS: HYDROcodone/acetaminophen 10/325mg tab PO PRN ×4 (03:38→20:47)
[2018-11-28 06:29] LABS: BASOPHILS % (AUTO) 0.1 % (0-1); EOSINOPHILS % (AUTO) 0 % (0-6); HEMATOCRIT 22.5 % (42.0-52.0); HEMOGLOBIN 7.3 g/dl (14.0-17.9); LYMPHOCYTES % (AUTO) 10.9 % (21-51); MEAN CORPUSCULAR HEMOGLOBIN 27.3 PG (27.0-31.0); MEAN CORPUSCULAR HGB CONC 32.2 g/dL (33.0-36.5); MEAN CORPUSCULAR VOLUME 84.7 FL (78-98); MONOCYTES # (AUTO) 0.6 X10'3 (0-0.9); NEUTROPHILS # (AUTO) 7.6 X10'3 (1.8-7.7); PLATELET COUNT 506 X10'3 (140-440); RED BLOOD COUNT 2.66 X10'6 (4.70-6.10); RED CELL DISTRIBUTION WIDTH 17.9 % (11.5-14.5); WHITE BLOOD COUNT 9.2 X10'3 (4.5-11.0)
--- NOTE | 2018-11-28 06:32 | NUR ---
Problems reprioritized. Patient report given, questions answered & plan of care reviewed with Melody LARRY.
[2018-11-28 06:43] LABS: ALANINE AMINOTRANSFERASE 50 U/L (12-78); ALBUMIN 1.8 G/DL (3.4-5.0); ALBUMIN/GLOBULIN RATIO 0.5 (1.1-1.5); ALKALINE PHOSPHATASE 52 IU/L (46-116); ANION GAP 6 (8-16); ASPARTATE AMINO TRANSFERASE 14 U/L (10-37); BILIRUBIN,TOTAL 0.2 MG/DL (0.1-1.0); BLOOD UREA NITROGEN 13 MG/DL (7-18); BUN/CREATININE RATIO 16.7 (5.4-32.0); CALCIUM 8.5 MG/DL (8.5-10.1); CHLORIDE 101 MMOL/L (99-107); CREATININE 0.78 MG/DL (0.60-1.10); GLUCOSE 157 MG/DL (70-104); PHOSPHORUS 4.4 MG/DL (2.3-4.5); POTASSIUM 4.6 MMOL/L (3.5-5.1); SODIUM 136 MMOL/L (135-145); TOTAL CARBON DIOXIDE 28.7 MMOL/L (24-32); TOTAL PROTEIN 5.7 G/DL (6.4-8.2); eGFR > 90 ML/MIN
--- NOTE | 2018-11-28 06:45 | NUR ---
Patient in room [facility]. I have received report from Alexis LARRY and had the opportunity to ask questions and assume patient care.
[2018-11-28 07:00] VITALS: BP 132/73
[2018-11-28 07:29] LABS: ANISOCYTOSIS 2+; PLATELET ESTIMATE INCREASED; TOTAL CELLS COUNTED 100
[2018-11-28 07:30] LABS: HYPOCHROMASIA 1+; POLYCHROMASIA 2+; SCHISTOCYTES FEW; TEAR DROP CELLS 1+; TOXIC GRANULATION 2+
[2018-11-28] MEDS: methylPREDNISolone sod succ 125mg/2ml vial IV SCH ×2 (07:59→19:22)
[2018-11-28] MEDS: mesalamine 1.2gm ER tablet PO SCH ×3 (07:59→17:17)
[2018-11-28] MEDS: loratadine 10mg tablet PO SCH (07:59)
[2018-11-28] MEDS: montelukast 10mg tablet PO SCH (07:59)
[2018-11-28] MEDS: propranolol 10mg tablet PO SCH ×2 (07:59→19:22)
[2018-11-28] MEDS: ferrous sulfate 325mg tablet PO SCH (07:59)
[2018-11-28] MEDS: lactobacillus rhamnosus 10,000 MMU CELLS/CAPSULE PO SCH ×2 (07:59→19:22)
[2018-11-28] MEDS: losartan 50mg tablet PO SCH (07:59)
[2018-11-28] MEDS: vancomycin 125mg/5ml ORAL solution 5ml UD bottle PO SCH ×4 (07:59→20:44)
[2018-11-28] MEDS: K and/or MAG REPLACEMENT MC SCH (08:00)
[2018-11-28] MEDS: dextroamphetamine/amphetamine ER 20 MG CAP.SR.24H PO SCH (08:55)
[2018-11-28 11:00] VITALS: BP 147/73
--- NOTE | 2018-11-28 16:38 | NUR ---
[place] given x2 for pain. Minimal drainage to right flank. patient encouraged to ambulate. states has walked 1500ft. seen by Dr diaz. continue cares
--- NOTE | 2018-11-28 18:10 | NUR ---
Patient in room [facility]. I have received report from Melody LARRY and had the opportunity to ask questions and assume patient care.
--- NOTE | 2018-11-28 18:16 | NUR ---
Problems reprioritized. Patient report given, questions answered & plan of care reviewed with Rico LARRY.
[2018-11-28 20:00] VITALS: BP 132/103
[2018-11-28] MEDS: risperiDONE 0.5mg tablet PO SCH (20:44)
[2018-11-29] VITALS: BP 138/75
[2018-11-29] MEDS: HYDROcodone/acetaminophen 10/325mg tab PO PRN ×3 (02:53→15:41)
--- NOTE | 2018-11-29 06:18 | NUR ---
Problems reprioritized. Patient report given, questions answered & plan of care reviewed with Melody LARRY.
--- NOTE | 2018-11-29 06:22 | NUR ---
Patient in room [facility]. I have received report from Alexis LARRY and had the opportunity to ask questions and assume patient care.
[2018-11-29 06:29] LABS: ALANINE AMINOTRANSFERASE 50 U/L (12-78); ALBUMIN 1.8 G/DL (3.4-5.0); ALBUMIN/GLOBULIN RATIO 0.5 (1.1-1.5); ALKALINE PHOSPHATASE 52 IU/L (46-116); ANION GAP 5 (8-16); ASPARTATE AMINO TRANSFERASE 13 U/L (10-37); BILIRUBIN,TOTAL 0.2 MG/DL (0.1-1.0); BLOOD UREA NITROGEN 16 MG/DL (7-18); BUN/CREATININE RATIO 21.9 (5.4-32.0); CALCIUM 8.7 MG/DL (8.5-10.1); CHLORIDE 101 MMOL/L (99-107); CREATININE 0.73 MG/DL (0.60-1.10); GLUCOSE 142 MG/DL (70-104); PHOSPHORUS 4.6 MG/DL (2.3-4.5); POTASSIUM 4.5 MMOL/L (3.5-5.1); SODIUM 136 MMOL/L (135-145); TOTAL CARBON DIOXIDE 29.9 MMOL/L (24-32); TOTAL PROTEIN 5.7 G/DL (6.4-8.2); eGFR > 90 ML/MIN
[2018-11-29 06:54] LABS: BASOPHILS % (AUTO) 0.1 % (0-1); EOSINOPHILS % (AUTO) 0 % (0-6); HEMATOCRIT 22.6 % (42.0-52.0); HEMOGLOBIN 7.3 g/dl (14.0-17.9); LYMPHOCYTES # (AUTO) 1.3 X10'3 (1.1-4.8); LYMPHOCYTES % (AUTO) 14.3 % (21-51); MEAN CORPUSCULAR HEMOGLOBIN 27.1 PG (27.0-31.0); MEAN CORPUSCULAR HGB CONC 32.2 g/dL (33.0-36.5); MEAN CORPUSCULAR VOLUME 84.3 FL (78-98); MONOCYTES # (AUTO) 0.6 X10'3 (0-0.9); MONOCYTES % (AUTO) 6.8 % (2-12); NEUTROPHILS # (AUTO) 7.4 X10'3 (1.8-7.7); NEUTROPHILS % (AUTO) 78.8 % (42-75); PLATELET COUNT 481 X10'3 (140-440); RED BLOOD COUNT 2.68 X10'6 (4.70-6.10); RED CELL DISTRIBUTION WIDTH 18.1 % (11.5-14.5); WHITE BLOOD COUNT 9.4 X10'3 (4.5-11.0)
[2018-11-29 07:00] VITALS: BP 139/85
[2018-11-29] MEDS: K and/or MAG REPLACEMENT MC SCH (08:00)
[2018-11-29] MEDS: loratadine 10mg tablet PO SCH (08:11)
[2018-11-29] MEDS: vancomycin 125mg/5ml ORAL solution 5ml UD bottle PO SCH ×4 (08:11→20:26)
[2018-11-29] MEDS: propranolol 10mg tablet PO SCH ×2 (08:12→20:26)
[2018-11-29] MEDS: lactobacillus rhamnosus 10,000 MMU CELLS/CAPSULE PO SCH ×2 (08:12→20:26)
[2018-11-29] MEDS: mesalamine 1.2gm ER tablet PO SCH ×3 (08:12→17:17)
[2018-11-29] MEDS: ferrous sulfate 325mg tablet PO SCH (08:12)
[2018-11-29] MEDS: montelukast 10mg tablet PO SCH (08:12)
[2018-11-29] MEDS: losartan 50mg tablet PO SCH (08:12)
[2018-11-29] MEDS: methylPREDNISolone sod succ 125mg/2ml vial IV SCH ×2 (08:12→20:26)
[2018-11-29] MEDS: dextroamphetamine/amphetamine ER 20 MG CAP.SR.24H PO SCH (08:29)
[2018-11-29 11:33] VITALS: BP 141/71
--- NOTE | 2018-11-29 18:05 | NUR ---
Patient in room [facility]. I have received report from Melody LARRY and had the opportunity to ask questions and assume patient care.
--- NOTE | 2018-11-29 18:11 | NUR ---
All cares given. Patient seen by DR Zacarias, no new orders. Dressing changed to right hip mod drainage . patient encouraged to ambulate [place] given for pain x2.
--- NOTE | 2018-11-29 18:12 | NUR ---
Problems reprioritized. Patient report given, questions answered & plan of care reviewed with Alexis LARRY.
[2018-11-29 20:00] VITALS: BP 145/77
[2018-11-29] MEDS: risperiDONE 0.5mg tablet PO SCH (20:26)
[2018-11-30] VITALS: BP 134/69
[2018-11-30] MEDS: HYDROcodone/acetaminophen 5mg/325mg tablet PO PRN ×2 (01:49→07:18)
[2018-11-30 05:55] LABS: BASOPHILS % (AUTO) 0.1 % (0-1); EOSINOPHILS % (AUTO) 0 % (0-6); HEMATOCRIT 22.7 % (42.0-52.0); HEMOGLOBIN 7.3 g/dl (14.0-17.9); LYMPHOCYTES # (AUTO) 1.1 X10'3 (1.1-4.8); LYMPHOCYTES % (AUTO) 9.7 % (21-51); MEAN CORPUSCULAR HEMOGLOBIN 27.2 PG (27.0-31.0); MEAN CORPUSCULAR HGB CONC 32.1 g/dL (33.0-36.5); MEAN PLATELET VOLUME 5.8 FL (7.4-10.4); MONOCYTES # (AUTO) 0.8 X10'3 (0-0.9); MONOCYTES % (AUTO) 7.6 % (2-12); NEUTROPHILS % (AUTO) 82.6 % (42-75); PLATELET COUNT 488 X10'3 (140-440); RED BLOOD COUNT 2.67 X10'6 (4.70-6.10); RED CELL DISTRIBUTION WIDTH 18.4 % (11.5-14.5); WHITE BLOOD COUNT 10.9 X10'3 (4.5-11.0)
[2018-11-30 06:05] LABS: ALANINE AMINOTRANSFERASE 54 U/L (12-78); ALBUMIN 1.8 G/DL (3.4-5.0); ALBUMIN/GLOBULIN RATIO 0.5 (1.1-1.5); ALKALINE PHOSPHATASE 49 IU/L (46-116); ANION GAP 6 (8-16); ASPARTATE AMINO TRANSFERASE 10 U/L (10-37); BILIRUBIN,TOTAL 0.2 MG/DL (0.1-1.0); BLOOD UREA NITROGEN 13 MG/DL (7-18); BUN/CREATININE RATIO 18.1 (5.4-32.0); CALCIUM 8.6 MG/DL (8.5-10.1); CHLORIDE 101 MMOL/L (99-107); CREATININE 0.72 MG/DL (0.60-1.10); GLUCOSE 153 MG/DL (70-104); PHOSPHORUS 4.8 MG/DL (2.3-4.5); POTASSIUM 4.7 MMOL/L (3.5-5.1); SODIUM 136 MMOL/L (135-145); TOTAL CARBON DIOXIDE 29.2 MMOL/L (24-32); TOTAL PROTEIN 5.7 G/DL (6.4-8.2); eGFR > 90 ML/MIN
--- NOTE | 2018-11-30 06:35 | NUR ---
Problems reprioritized. Patient report given, questions answered & plan of care reviewed with Talyor LARRY.
[2018-11-30 07:00] VITALS: BP 149/67
[2018-11-30] MEDS: methylPREDNISolone sod succ 125mg/2ml vial IV SCH ×2 (07:17→20:49)
[2018-11-30] MEDS: propranolol 10mg tablet PO SCH ×2 (07:17→20:54)
[2018-11-30] MEDS: lactobacillus rhamnosus 10,000 MMU CELLS/CAPSULE PO SCH ×2 (07:17→20:51)
[2018-11-30] MEDS: mesalamine 1.2gm ER tablet PO SCH ×3 (07:17→16:34)
[2018-11-30] MEDS: loratadine 10mg tablet PO SCH (07:17)
[2018-11-30] MEDS: losartan 50mg tablet PO SCH (07:17)
[2018-11-30] MEDS: ferrous sulfate 325mg tablet PO SCH (07:17)
[2018-11-30] MEDS: montelukast 10mg tablet PO SCH (07:18)
[2018-11-30] MEDS: vancomycin 125mg/5ml ORAL solution 5ml UD bottle PO SCH ×4 (07:19→20:50)
[2018-11-30] MEDS: K and/or MAG REPLACEMENT MC SCH (07:20)
[2018-11-30] MEDS: dextroamphetamine/amphetamine ER 20 MG CAP.SR.24H PO SCH (08:46)
[2018-11-30 11:00] VITALS: BP 138/74
[2018-11-30] MEDS: HYDROcodone/acetaminophen 10/325mg tab PO PRN ×2 (16:35→20:50)
--- NOTE | 2018-11-30 18:30 | NUR ---
Patient in room [facility]. I have received report from Carlos and had the opportunity to ask questions and assume patient care.
--- NOTE | 2018-11-30 18:39 | NUR ---
Report given to Chely LARRY.
[2018-11-30 19:00] VITALS: BP 141/61
[2018-11-30] MEDS: risperiDONE 0.5mg tablet PO SCH (20:51)
[2018-12-01] VITALS (13 sets, daily range): BP systolic 131–178; BP diastolic 73–100
[2018-12-01] MEDS: HYDROcodone/acetaminophen 10/325mg tab PO PRN (03:02)
[2018-12-01 05:30] LABS: BASOPHILS % (AUTO) 0.1 % (0-1); EOSINOPHILS % (AUTO) 0 % (0-6); LYMPHOCYTES # (AUTO) 0.8 X10'3 (1.1-4.8); LYMPHOCYTES % (AUTO) 7.7 % (21-51); MEAN CORPUSCULAR HEMOGLOBIN 27.7 PG (27.0-31.0); MEAN CORPUSCULAR HGB CONC 32.6 g/dL (33.0-36.5); MEAN CORPUSCULAR VOLUME 84.9 FL (78-98); MEAN PLATELET VOLUME 5.9 FL (7.4-10.4); MONOCYTES # (AUTO) 0.7 X10'3 (0-0.9); MONOCYTES % (AUTO) 6.7 % (2-12); NEUTROPHILS # (AUTO) 8.4 X10'3 (1.8-7.7); NEUTROPHILS % (AUTO) 85.5 % (42-75); PLATELET COUNT 468 X10'3 (140-440); RED BLOOD COUNT 2.53 X10'6 (4.70-6.10); RED CELL DISTRIBUTION WIDTH 18.6 % (11.5-14.5); WHITE BLOOD COUNT 9.9 X10'3 (4.5-11.0)
[2018-12-01 05:35] LABS: ALANINE AMINOTRANSFERASE 79 U/L (12-78); ALBUMIN 1.8 G/DL (3.4-5.0); ALBUMIN/GLOBULIN RATIO 0.5 (1.1-1.5); ALKALINE PHOSPHATASE 51 IU/L (46-116); ANION GAP 5 (8-16); ASPARTATE AMINO TRANSFERASE 10 U/L (10-37); BILIRUBIN,TOTAL 0.2 MG/DL (0.1-1.0); BLOOD UREA NITROGEN 19 MG/DL (7-18); BUN/CREATININE RATIO 23.5 (5.4-32.0); CALCIUM 8.5 MG/DL (8.5-10.1); CHLORIDE 101 MMOL/L (99-107); CREATININE 0.81 MG/DL (0.60-1.10); GLUCOSE 158 MG/DL (70-104); MAGNESIUM 1.9 MG/DL (1.5-2.4); POTASSIUM 4.7 MMOL/L (3.5-5.1); SODIUM 136 MMOL/L (135-145); TOTAL CARBON DIOXIDE 30.4 MMOL/L (24-32); TOTAL PROTEIN 5.5 G/DL (6.4-8.2); eGFR > 90 ML/MIN
[2018-12-01 05:54] LABS: HEMATOCRIT 21.5 % (42.0-52.0)
--- NOTE | 2018-12-01 06:40 | NUR ---
Reported off to day nurse Taylor LARRY
[2018-12-01] MEDS: lactobacillus rhamnosus 10,000 MMU CELLS/CAPSULE PO SCH ×2 (07:21→21:10)
[2018-12-01] MEDS: vancomycin 125mg/5ml ORAL solution 5ml UD bottle PO SCH ×4 (07:21→21:10)
[2018-12-01] MEDS: montelukast 10mg tablet PO SCH (07:22)
[2018-12-01] MEDS: methylPREDNISolone sod succ 125mg/2ml vial IV SCH ×2 (07:22→21:10)
[2018-12-01] MEDS: mesalamine 1.2gm ER tablet PO SCH ×3 (07:22→16:26)
[2018-12-01] MEDS: ferrous sulfate 325mg tablet PO SCH (07:22)
[2018-12-01] MEDS: propranolol 10mg tablet PO SCH ×2 (07:22→21:19)
[2018-12-01] MEDS: losartan 50mg tablet PO SCH (07:22)
[2018-12-01] MEDS: HYDROcodone/acetaminophen 5mg/325mg tablet PO PRN ×3 (07:22→18:07)
[2018-12-01] MEDS: K and/or MAG REPLACEMENT MC SCH (07:23)
[2018-12-01] MEDS: loratadine 10mg tablet PO SCH (07:24)
--- NOTE | 2018-12-01 08:08 | NUR ---
PAGER ID: [phone] MESSAGE: [id number] [address] Jenkins and H 7.0/21.5 Night made aware already. No new orders gary [phone]
[2018-12-01] MEDS: dextroamphetamine/amphetamine ER 20 MG CAP.SR.24H PO SCH (08:56)
--- NOTE | 2018-12-01 12:52 | NUR ---
PAGER ID: [phone] MESSAGE: [address] pt continues to. c/o severe abd. pain. Do you want abd. US? BP 175/100 84HR Taylor 1705
--- NOTE | 2018-12-01 13:00 | NUR ---
MD Smith responded. No new orders at this time. states he will come assess pt. soon.
--- NOTE | 2018-12-01 14:55 | NUR ---
Reassessment: Pt approved for biologics to start recently per MD approval. PO 75-100% meals this admit though only drank milk w/ lunch today. LBM 12/01. NIKI d/w RN regarding change to low-residue diet per MD approval given ulcerative colitis hx. Will continue to monitor. Rec: 1. advance diet to low-residue 2. double proteins TIDWM 3. weekly wts Addendum: 12/01/18 at [address] Amended: Links added.
[2018-12-01 16:46] LABS: HEMATOCRIT 25.1 % (42.0-52.0); HEMOGLOBIN 8.3 g/dl (14.0-17.9); MEAN CORPUSCULAR HEMOGLOBIN 27.9 PG (27.0-31.0); MEAN CORPUSCULAR VOLUME 84.4 FL (78-98); MEAN PLATELET VOLUME 5.8 FL (7.4-10.4); PLATELET COUNT 533 X10'3 (140-440); RED BLOOD COUNT 2.98 X10'6 (4.70-6.10); RED CELL DISTRIBUTION WIDTH 18.1 % (11.5-14.5); WHITE BLOOD COUNT 12.5 X10'3 (4.5-11.0)
--- NOTE | 2018-12-01 18:30 | NUR ---
Patient in room [facility]. I have received report from Taylor LARRY and had the opportunity to ask questions and assume patient care.
--- NOTE | 2018-12-01 18:30 | NUR ---
Patient in room [facility]. I have received report from Taylor LARRY and had the opportunity to ask questions and assume patient care.
--- NOTE | 2018-12-01 18:45 | NUR ---
Patient in room [facility]. I have received report from Taylor LARRY and had the opportunity to ask questions and assume patient care.
--- NOTE | 2018-12-01 18:49 | NUR ---
Discussed high BPs with MD Smith. See order changes.
--- NOTE | 2018-12-01 18:51 | NUR ---
Gave report to Chely LARRY.
[2018-12-01] MEDS: risperiDONE 0.5mg tablet PO SCH (21:11)
[2018-12-02] VITALS: BP 128/87
[2018-12-02] MEDS: HYDROcodone/acetaminophen 10/325mg tab PO PRN ×4 (00:15→15:24)
[2018-12-02 04:43] LABS: BASOPHILS % (AUTO) 0.1 % (0-1); EOSINOPHILS % (AUTO) 0 % (0-6); HEMATOCRIT 26.4 % (42.0-52.0); HEMOGLOBIN 8.5 g/dl (14.0-17.9); LYMPHOCYTES # (AUTO) 0.9 X10'3 (1.1-4.8); MEAN CORPUSCULAR HEMOGLOBIN 27.4 PG (27.0-31.0); MEAN CORPUSCULAR VOLUME 85.4 FL (78-98); MONOCYTES # (AUTO) 0.9 X10'3 (0-0.9); NEUTROPHILS # (AUTO) 12.8 X10'3 (1.8-7.7); NEUTROPHILS % (AUTO) 87.9 % (42-75); PLATELET COUNT 488 X10'3 (140-440); RED BLOOD COUNT 3.09 X10'6 (4.70-6.10); RED CELL DISTRIBUTION WIDTH 18.4 % (11.5-14.5); WHITE BLOOD COUNT 14.6 X10'3 (4.5-11.0)
[2018-12-02 05:06] LABS: ALANINE AMINOTRANSFERASE 69 U/L (12-78); ALBUMIN 2.2 G/DL (3.4-5.0); ALBUMIN/GLOBULIN RATIO 0.6 (1.1-1.5); ALKALINE PHOSPHATASE 59 IU/L (46-116); ANION GAP 6 (8-16); ASPARTATE AMINO TRANSFERASE 8 U/L (10-37); BILIRUBIN,TOTAL 0.3 MG/DL (0.1-1.0); BLOOD UREA NITROGEN 19 MG/DL (7-18); BUN/CREATININE RATIO 18.6 (5.4-32.0); CALCIUM 8.8 MG/DL (8.5-10.1); CHLORIDE 101 MMOL/L (99-107); CREATININE 1.02 MG/DL (0.60-1.10); GLUCOSE 161 MG/DL (70-104); MAGNESIUM 2.1 MG/DL (1.5-2.4); POTASSIUM 4.5 MMOL/L (3.5-5.1); SODIUM 138 MMOL/L (135-145); TOTAL CARBON DIOXIDE 30.7 MMOL/L (24-32); TOTAL PROTEIN 6.2 G/DL (6.4-8.2); eGFR 88 ML/MIN
--- NOTE | 2018-12-02 06:30 | NUR ---
Patient in room [facility]. I have received report from Chely LARRY and had the opportunity to ask questions and assume patient care.
[2018-12-02 07:18] VITALS: BP 168/82
[2018-12-02] MEDS: K and/or MAG REPLACEMENT MC SCH (07:56)
[2018-12-02] MEDS: propranolol 10mg tablet PO SCH (07:59)
[2018-12-02] MEDS: methylPREDNISolone sod succ 125mg/2ml vial IV SCH (07:59)
[2018-12-02] MEDS: losartan 50mg tablet PO SCH (07:59)
[2018-12-02] MEDS: vancomycin 125mg/5ml ORAL solution 5ml UD bottle PO SCH ×2 (07:59→12:27)
[2018-12-02] MEDS: montelukast 10mg tablet PO SCH (07:59)
[2018-12-02] MEDS: lactobacillus rhamnosus 10,000 MMU CELLS/CAPSULE PO SCH (07:59)
[2018-12-02] MEDS: ferrous sulfate 325mg tablet PO SCH (07:59)
[2018-12-02] MEDS: mesalamine 1.2gm ER tablet PO SCH ×2 (07:59→12:27)
[2018-12-02] MEDS: loratadine 10mg tablet PO SCH (07:59)
[2018-12-02] MEDS: dextroamphetamine/amphetamine ER 20 MG CAP.SR.24H PO SCH (08:35)
[2018-12-02] MEDS ORDERED: HYDR-3972 PO (09:47)
[2018-12-02] MEDS ORDERED: PRED10TA23 PO (09:47)
[2018-12-02] MEDS ORDERED: ADAL40PE5 SUBCUT (09:47)
[2018-12-02] MEDS ORDERED: PROP10TA10 PO (09:47)
[2018-12-02 11:42] VITALS: BP 136/78
--- NOTE | 2018-12-02 16:05 | NUR ---
Patient discharged with all belongings. Rx delivered to bedside via [facility]. [facility] being filled at [facility], pt to poultry picking machine tender medication when Rx is ready. IV taken out. Family to take pt home. W/C to front lobby.
== END 2018-12-02 16:07 | disposition home health service (06) | DRG 248 ==
LOC: ER 13:54 → SUR 3N 17:00 → CMPBEDREQ 18:31
PROVIDERS: ADMIT Family Medicine; ATTEND Family Medicine
PROC: 30233N1 Transfusion of Nonautologous Red Blood Cells into Peripheral Vein, Percutaneous Approach (ICD-10-PCS; 2018-11-19)
PROC: 30233N1 Transfusion of Nonautologous Red Blood Cells into Peripheral Vein, Percutaneous Approach (ICD-10-PCS; 2018-11-20)
PROC: 5A09357 Assistance with Respiratory Ventilation, Less than 24 Consecutive Hours, Continuous Positive Airway Pressure (ICD-10-PCS; principal; 2018-11-30)
PROC: 30233N1 Transfusion of Nonautologous Red Blood Cells into Peripheral Vein, Percutaneous Approach (ICD-10-PCS; 2018-12-01)
DX: A04.72 Enterocolitis due to Clostridium difficile, not specified as recurrent (principal); E66.01 Morbid (severe) obesity due to excess calories; D62 Acute posthemorrhagic anemia; K51.90 Ulcerative colitis, unspecified, without complications; Z68.43 Body mass index [BMI] 50.0-59.9, adult; F79 Unspecified intellectual disabilities; F90.9 Attention-deficit hyperactivity disorder, unspecified type; I10 Essential (primary) hypertension; R60.9 Edema, unspecified
CPT/HCPCS: 36415; 80053; 80074; 83735; 84100; 85025; 85027; 85610; 86885; 86900; 86901; 86920; 87081; 87324; 87449; 94760; 96374; 96375; 99285; G0378; J1170; J1720; J2270; J2930; J7030; P9016

== ENCOUNTER 2019-01-02 17:56 | Inpatient (IN) | payer MEDICAID ==
[~2019-01-02] VITALS: Ht 167.6 cm; Wt 145.4 kg
[~2019-01-02 17:56] MED LIST changes: +ADAL40PE5 SUBCUT; -BENZ-16 PO; +DEXM20CP6 PO; +FERR325T29 PO; -FERR325T32 PO; +HYDR-3972 PO
[2019-01-02 19:14] LABS: PARTIAL THROMBOPLASTIN TIME 26 SECONDS (22-32)
[2019-01-02 19:26] LABS: ALANINE AMINOTRANSFERASE 21 U/L (12-78); ALBUMIN 1.8 G/DL (3.4-5.0); ALBUMIN/GLOBULIN RATIO 0.4 (1.1-1.5); ALKALINE PHOSPHATASE 55 IU/L (46-116); ANION GAP 6 (8-16); ASPARTATE AMINO TRANSFERASE 16 U/L (10-37); BILIRUBIN,TOTAL 0.2 MG/DL (0.1-1.0); BLOOD UREA NITROGEN 9 MG/DL (7-18); BUN/CREATININE RATIO 7.8 (5.4-32.0); CHLORIDE 105 MMOL/L (99-107); CREATININE 1.15 MG/DL (0.60-1.10); GLUCOSE 87 MG/DL (70-104); POTASSIUM 4.6 MMOL/L (3.5-5.1); SODIUM 137 MMOL/L (135-145); TOTAL CARBON DIOXIDE 26.4 MMOL/L (24-32); TOTAL PROTEIN 6.1 G/DL (6.4-8.2); eGFR 77 ML/MIN
--- NOTE | 2019-01-02 19:38 | NUR ---
Pt mother at bedside. Pt reprots multiple blood transfusions over the past 2.5 months and 3 admittions over this time.
[2019-01-02 19:44] LABS: BASOPHILS # (AUTO) 0.1 X10'3 (0-0.2); BASOPHILS % (AUTO) 1.1 % (0-1); EOSINOPHILS # (AUTO) 0.4 X10'3 (0-0.9); EOSINOPHILS % (AUTO) 5.5 % (0-6); HEMATOCRIT 24.9 % (42.0-52.0); HEMOGLOBIN 7.5 g/dl (14.0-17.9); LYMPHOCYTES # (AUTO) 2.2 X10'3 (1.1-4.8); LYMPHOCYTES % (AUTO) 31.2 % (21-51); MEAN CORPUSCULAR HEMOGLOBIN 25.3 PG (27.0-31.0); MEAN CORPUSCULAR HGB CONC 30.2 g/dL (33.0-36.5); MEAN CORPUSCULAR VOLUME 83.9 FL (78-98); MEAN PLATELET VOLUME 6.9 FL (7.4-10.4); MONOCYTES # (AUTO) 0.9 X10'3 (0-0.9); MONOCYTES % (AUTO) 12.8 % (2-12); NEUTROPHILS # (AUTO) 3.6 X10'3 (1.8-7.7); NEUTROPHILS % (AUTO) 49.4 % (42-75); PLATELET COUNT 587 X10'3 (140-440); RED BLOOD COUNT 2.96 X10'6 (4.70-6.10); RED CELL DISTRIBUTION WIDTH 16.7 % (11.5-14.5); WHITE BLOOD COUNT 7.2 X10'3 (4.5-11.0)
[2019-01-02] MEDS ORDERED: normal saline 1000ML IV soln IVB ONE (20:25)
--- NOTE | 2019-01-02 20:25 | NUR ---
DR. CAUSEY UPDATED THAT PT UNABLE TO VOID. HE ORDERED 1 LITER NS AND OK FOR PT TO HAVE SOME SIPS OF WATER. PTS MOTHER REMAINS AT BEDSIDE. PT WILL TRY IN A FEW MINUTES TO VOID IN URINAL. MD ALSO REQUEST TO TP ATTEMPT TO PRODUCE STOOL ANS HE WANT TO GUIAC IT. PT UPDATED
--- NOTE | 2019-01-02 20:49 | NUR ---
PT NOW AWAITING HOSPITALIST. ABLE TO VOID SMALL AMT IN URINAL , SENT FOR UA. CURRENT VSS. PT PROVIDED LIST OF HOME MEDS
[2019-01-02] MEDS ORDERED: HYDROcodone/acetaminophen 5mg/325mg tablet PO PRN (21:00)
[2019-01-02] MEDS ORDERED: morphine 2 MG/ML inj. syringe IV PRN ×2 (21:00)
[2019-01-02] MEDS ORDERED: potassium CL 10mEq/100ml bag 100 ML IV PRN ×2 (21:00)
[2019-01-02] MEDS ORDERED: ondansetron/PF 4mg/2ml inj IV PRN (21:00)
[2019-01-02] MEDS ORDERED: magnesium Cl slow-release 64mg tablet PO PRN (21:00)
[2019-01-02] MEDS ORDERED: magnesium 4gm in 100ml NS 100 ML IV PRN (21:00)
[2019-01-02] MEDS ORDERED: acetaminophen 325mg tablet PO PRN ×2 (21:00)
[2019-01-02] MEDS ORDERED: potassium Cl 20 mEq SR tablet PO PRN ×2 (21:00)
[2019-01-02] MEDS ORDERED: mag hydrox/Alum hydrox/simeth 30ml oral suspension PO PRN (21:00)
[2019-01-02] MEDS ORDERED: magnesium 2GM in 50ml NS 50 ML IV PRN (21:00)
[2019-01-02] MEDS ORDERED: magnesium hydroxide 30ml (MOM) UD suspension PO PRN (21:00)
[2019-01-02 21:08] LABS: CLARITY,URINE CLEAR (Clear); COLOR,URINE YELLOW (Yellow); GLUCOSE, URINE NEGATIVE (Neg); KETONES,URINE NEGATIVE (Neg); LEUKOCYTE ESTERASE ,URINE NEGATIVE (Neg); NITRITES, URINE NEGATIVE (Neg); OCCULT BLOOD,URINE NEGATIVE (Neg); PH,URINE 6.5 (4.8-8.0); PROTEIN,URINE TRACE mg/dl (Neg); UROBILINOGEN,URINE 0.2 E.U/dL (0.2-1.0)
[2019-01-02 21:09] LABS: UA COLLECTION TYPE CLN CATCH MIDSTREAM
[2019-01-02 21:24] LABS: BACTERIA,URINE NONE SEEN /HPF (Neg); CAL OXALATE CRYSTALS 1+ /HPF (NEGATIVE); MUCUS STRANDS MANY /LPF (Neg); RBC,URINE NONE SEEN /HPF (0-2); SQUAMOUS EPITHELIAL CELL,UR NONE SEEN /LPF (FEW); WBC,URINE 0-4 /HPF (0-4)
[2019-01-02] MEDS ORDERED: ADAL40PE SUBCUT (21:29)
[2019-01-02] MEDS ORDERED: [UNRECOGNIZED DRUG - OTHER] PO (21:29)
[2019-01-02] MEDS ORDERED: MONT10TA21 PO (21:37)
--- NOTE | 2019-01-02 21:38 | NUR ---
DR ESPINOZA AT BEDSIDE FOR ADMISSION. PT TURNER PRODUCED NO STOOL YET. HEMOCULT NOT YET PERFORMED
--- NOTE | 2019-01-02 22:07 | NUR ---
REPORT CALLED TO SURGICAL FLOOR, TERE LARRY. PT READY TO GO UPSTAIRS. HE IS USING THE BSC NOW AND HAS TO HAVE BM.
[2019-01-02] MEDS: normal saline 1000ml 1,000 ML IV SCH ×2 (22:08→23:17)
[2019-01-02 22:20] VITALS: BP 115/75
--- NOTE | 2019-01-02 22:30 | NUR ---
PT HAD MODERATE FORMED BM, DARK RED. REPORTS NO FURTHER DIZZINESS UPON STANDING AFTER RECEIVING THE 1 LITER BOLUS.
[2019-01-02 22:35] VITALS: BP 115/75
--- NOTE | 2019-01-02 22:35 | NUR ---
PATIENT ADMITTED TO ROOM 351 FROM ER FOR BLOODY STOOLS, ACUTE C-DIFF INFECTION, VERSUS GI BLEEDING. PLACED COMFORTABLE IN BED. VITAL SIGNS TAKEN AND RECORDED.
[2019-01-02] MEDS ORDERED: traZODone 50mg tablet PO PRN (22:40)
[2019-01-02 23:53] LABS: NUCLEATED RED BLOOD CELLS 2 /100WBC (0-0); TOTAL CELLS COUNTED 100
[2019-01-02 23:54] LABS: ANISOCYTOSIS 1+; PLATELET ESTIMATE INCREASED
[2019-01-02 23:55] LABS: ELLIPTOCYTES 1+; TARGET CELLS FEW; TEAR DROP CELLS 1+
[2019-01-03] VITALS (7 sets, daily range): BP systolic 99–142; BP diastolic 55–80
[2019-01-03] MEDS: vancomycin 125mg/5ml ORAL solution 5ml UD bottle PO SCH ×4 (02:07→21:07)
--- NOTE | 2019-01-03 06:27 | NUR ---
Problems reprioritized. Patient report given, questions answered & plan of care reviewed with DAVID LARRY.
--- NOTE | 2019-01-03 06:58 | NUR ---
Patient in room [facility]. I have received report from ANNY LARRY and had the opportunity to ask questions and assume patient care.
[2019-01-03] MEDS: K and/or MAG REPLACEMENT MC SCH (08:00)
[2019-01-03] MEDS: [UNRECOGNIZED DRUG - OTHER] PO SCH (08:00)
[2019-01-03 08:07] LABS: BASOPHILS # (AUTO) 0.1 X10'3 (0-0.2); BASOPHILS % (AUTO) 0.9 % (0-1); EOSINOPHILS # (AUTO) 0.4 X10'3 (0-0.9); EOSINOPHILS % (AUTO) 4.8 % (0-6); HEMATOCRIT 22.9 % (42.0-52.0); LYMPHOCYTES # (AUTO) 1.4 X10'3 (1.1-4.8); MEAN CORPUSCULAR HEMOGLOBIN 25.2 PG (27.0-31.0); MEAN CORPUSCULAR VOLUME 84.1 FL (78-98); MEAN PLATELET VOLUME 6.4 FL (7.4-10.4); MONOCYTES # (AUTO) 0.8 X10'3 (0-0.9); MONOCYTES % (AUTO) 10.2 % (2-12); NEUTROPHILS # (AUTO) 4.9 X10'3 (1.8-7.7); NEUTROPHILS % (AUTO) 65.1 % (42-75); PLATELET COUNT 486 X10'3 (140-440); RED BLOOD COUNT 2.73 X10'6 (4.70-6.10); WHITE BLOOD COUNT 7.5 X10'3 (4.5-11.0)
[2019-01-03 08:12] LABS: ALBUMIN 1.6 G/DL (3.4-5.0); ANION GAP 5 (8-16); BLOOD UREA NITROGEN 9 MG/DL (7-18); BUN/CREATININE RATIO 8.5 (5.4-32.0); CALCIUM 7.6 MG/DL (8.5-10.1); CHLORIDE 105 MMOL/L (99-107); CREATININE 1.06 MG/DL (0.60-1.10); GLUCOSE 82 MG/DL (70-104); MAGNESIUM 1.9 MG/DL (1.5-2.4); SODIUM 137 MMOL/L (135-145); TOTAL CARBON DIOXIDE 27.1 MMOL/L (24-32); eGFR 84 ML/MIN
[2019-01-03 08:28] LABS: HEMOGLOBIN 6.9 g/dl (14.0-17.9)
[2019-01-03] MEDS: losartan 50mg tablet PO SCH (08:41)
[2019-01-03] MEDS: propranolol 10mg tablet PO SCH ×2 (08:41→19:28)
[2019-01-03] MEDS: mesalamine 1.2gm ER tablet PO SCH ×3 (08:41→19:29)
[2019-01-03] MEDS: normal saline 1000ml 1,000 ML IV SCH (08:46)
[2019-01-03] MEDS: HYDROcodone/acetaminophen 10/325mg tab PO PRN ×2 (08:47→21:08)
--- NOTE | 2019-01-03 17:28 | NUR ---
patient seen by Dr White, ordered H&H 6.9,22.9 . One unit of PRBC ordered and given. patient tolerated well. repeat H&H is at 2030hrs. patient ambulating . Given [place] x1. Appears comfortable at this time
--- NOTE | 2019-01-03 18:42 | NUR ---
Problems reprioritized. Patient report given, questions answered & plan of care reviewed with sea scruggs.
[2019-01-03] MEDS: vancomycin/NS 1 GM ADD-VANTAGE 250 ML IV SCH ×2 (19:17→20:23)
[2019-01-03 20:23] LABS: HEMATOCRIT 24.3 % (42.0-52.0); HEMOGLOBIN 7.4 g/dl (14.0-17.9); MEAN CORPUSCULAR HEMOGLOBIN 25.9 PG (27.0-31.0); MEAN CORPUSCULAR HGB CONC 30.5 g/dL (33.0-36.5); MEAN CORPUSCULAR VOLUME 84.8 FL (78-98); MEAN PLATELET VOLUME 6.9 FL (7.4-10.4); PLATELET COUNT 491 X10'3 (140-440); RED BLOOD COUNT 2.86 X10'6 (4.70-6.10); RED CELL DISTRIBUTION WIDTH 16.3 % (11.5-14.5); WHITE BLOOD COUNT 7.7 X10'3 (4.5-11.0)
[2019-01-03] MEDS: montelukast 10mg tablet PO SCH (21:08)
[2019-01-03] MEDS: risperiDONE 0.5mg tablet PO SCH (21:08)
[2019-01-04] VITALS: BP 119/64
[2019-01-04] MEDS: normal saline 1000ml 1,000 ML IV SCH ×3 (03:00→16:25)
[2019-01-04] MEDS: vancomycin 125mg/5ml ORAL solution 5ml UD bottle PO SCH ×4 (03:41→20:30)
--- NOTE | 2019-01-04 06:27 | NUR ---
Problems reprioritized. Patient report given, questions answered & plan of care reviewed with Mahnaz LARRY. Addendum: 01/04/19 at 0640 by Meghan Vu RN Amended: Links added.
[2019-01-04 06:30] VITALS: BP 122/70
--- NOTE | 2019-01-04 06:45 | NUR ---
Patient in room [facility]. I have received report from LARON Christianson and had the opportunity to ask questions and assume patient care.
--- NOTE | 2019-01-04 06:55 | NUR ---
Patient in room [facility]. I have received report from LARON Christianson and had the opportunity to ask questions and assume patient care.
[2019-01-04 11:30] VITALS: BP 137/68
[2019-01-04] MEDS: losartan 50mg tablet PO SCH (11:30)
[2019-01-04] MEDS: mesalamine 1.2gm ER tablet PO SCH ×3 (11:30→17:54)
[2019-01-04] MEDS: propranolol 10mg tablet PO SCH ×2 (11:30→20:30)
[2019-01-04] MEDS: [UNRECOGNIZED DRUG - OTHER] PO SCH (11:32)
[2019-01-04] MEDS: K and/or MAG REPLACEMENT MC SCH (11:33)
[2019-01-04 13:43] LABS: BASOPHILS # (AUTO) 0.1 X10'3 (0-0.2); BASOPHILS % (AUTO) 0.9 % (0-1); EOSINOPHILS # (AUTO) 0.4 X10'3 (0-0.9); EOSINOPHILS % (AUTO) 5.6 % (0-6); HEMATOCRIT 25.3 % (42.0-52.0); HEMOGLOBIN 7.8 g/dl (14.0-17.9); LYMPHOCYTES # (AUTO) 1.8 X10'3 (1.1-4.8); LYMPHOCYTES % (AUTO) 24.5 % (21-51); MEAN CORPUSCULAR HEMOGLOBIN 26.1 PG (27.0-31.0); MEAN CORPUSCULAR HGB CONC 30.9 g/dL (33.0-36.5); MEAN CORPUSCULAR VOLUME 84.6 FL (78-98); MEAN PLATELET VOLUME 6.7 FL (7.4-10.4); MONOCYTES % (AUTO) 13.2 % (2-12); NEUTROPHILS # (AUTO) 4.1 X10'3 (1.8-7.7); NEUTROPHILS % (AUTO) 55.8 % (42-75); PLATELET COUNT 518 X10'3 (140-440); RED BLOOD COUNT 2.99 X10'6 (4.70-6.10); RED CELL DISTRIBUTION WIDTH 16.7 % (11.5-14.5); WHITE BLOOD COUNT 7.4 X10'3 (4.5-11.0)
[2019-01-04 13:50] LABS: ALBUMIN 1.6 G/DL (3.4-5.0); ANION GAP 6 (8-16); BLOOD UREA NITROGEN 8 MG/DL (7-18); BUN/CREATININE RATIO 6.4 (5.4-32.0); CALCIUM 7.4 MG/DL (8.5-10.1); CHLORIDE 106 MMOL/L (99-107); CREATININE 1.25 MG/DL (0.60-1.10); GLUCOSE 108 MG/DL (70-104); MAGNESIUM 1.9 MG/DL (1.5-2.4); SODIUM 138 MMOL/L (135-145); TOTAL CARBON DIOXIDE 26.4 MMOL/L (24-32); eGFR 70 ML/MIN
[2019-01-04 14:46] LABS: ANISOCYTOSIS 1+; NUCLEATED RED BLOOD CELLS 1 /100WBC (0-0); PLATELET ESTIMATE INCREASED; TOTAL CELLS COUNTED 100
[2019-01-04 14:47] LABS: ELLIPTOCYTES 1+; HYPOCHROMASIA 2+; POLYCHROMASIA 2+; TEAR DROP CELLS 1+
[2019-01-04 18:00] VITALS: BP 118/67
--- NOTE | 2019-01-04 18:10 | NUR ---
Problems reprioritized. Patient report given, questions answered & plan of care reviewed with LARON Snell.
[2019-01-04] MEDS: risperiDONE 0.5mg tablet PO SCH (20:30)
[2019-01-04] MEDS: montelukast 10mg tablet PO SCH (20:30)
[2019-01-05 00:16] VITALS: BP 124/64
[2019-01-05] MEDS: normal saline 1000ml 1,000 ML IV SCH (01:45)
[2019-01-05] MEDS: vancomycin 125mg/5ml ORAL solution 5ml UD bottle PO SCH ×3 (01:45→14:32)
[2019-01-05] MEDS ORDERED: VANCOMYCIN LEVEL IV ONE (03:30)
--- NOTE | 2019-01-05 06:05 | NUR ---
Patient in room [facility]. I have received report from LARON Snell and had the opportunity to ask questions and assume patient care.
--- NOTE | 2019-01-05 06:10 | NUR ---
Problems reprioritized. Patient report given, questions answered & plan of care reviewed with LARON Snell. Addendum: 01/05/19 at 1851 by Mahnaz Spann RN Time is 8070 NOT 0791
--- NOTE | 2019-01-05 06:11 | NUR ---
Problems reprioritized. Patient report given, questions answered & plan of care reviewed with LARON Joya.
[2019-01-05] MEDS: K and/or MAG REPLACEMENT MC SCH (07:08)
[2019-01-05 07:15] LABS: BASOPHILS # (AUTO) 0.1 X10'3 (0-0.2); BASOPHILS % (AUTO) 0.6 % (0-1); EOSINOPHILS # (AUTO) 0.4 X10'3 (0-0.9); HEMATOCRIT 25.5 % (42.0-52.0); HEMOGLOBIN 8.1 g/dl (14.0-17.9); LYMPHOCYTES # (AUTO) 1.4 X10'3 (1.1-4.8); LYMPHOCYTES % (AUTO) 14.4 % (21-51); MEAN CORPUSCULAR HEMOGLOBIN 26.7 PG (27.0-31.0); MEAN CORPUSCULAR HGB CONC 31.6 g/dL (33.0-36.5); MEAN CORPUSCULAR VOLUME 84.4 FL (78-98); MEAN PLATELET VOLUME 6.5 FL (7.4-10.4); MONOCYTES # (AUTO) 0.9 X10'3 (0-0.9); MONOCYTES % (AUTO) 8.9 % (2-12); NEUTROPHILS # (AUTO) 7.2 X10'3 (1.8-7.7); NEUTROPHILS % (AUTO) 72.1 % (42-75); PLATELET COUNT 485 X10'3 (140-440); RED BLOOD COUNT 3.02 X10'6 (4.70-6.10); RED CELL DISTRIBUTION WIDTH 16.4 % (11.5-14.5); WHITE BLOOD COUNT 9.9 X10'3 (4.5-11.0)
[2019-01-05 07:33] LABS: ALBUMIN 1.5 G/DL (3.4-5.0); ANION GAP 5 (8-16); BLOOD UREA NITROGEN 8 MG/DL (7-18); BUN/CREATININE RATIO 6.4 (5.4-32.0); CALCIUM 7.5 MG/DL (8.5-10.1); CHLORIDE 106 MMOL/L (99-107); CREATININE 1.25 MG/DL (0.60-1.10); GLUCOSE 88 MG/DL (70-104); MAGNESIUM 1.8 MG/DL (1.5-2.4); SODIUM 138 MMOL/L (135-145); TOTAL CARBON DIOXIDE 26.8 MMOL/L (24-32); eGFR 70 ML/MIN
[2019-01-05 07:45] VITALS: BP 121/70
[2019-01-05] MEDS: [UNRECOGNIZED DRUG - OTHER] PO SCH (08:00)
[2019-01-05] MEDS: propranolol 10mg tablet PO SCH (08:27)
[2019-01-05] MEDS: mesalamine 1.2gm ER tablet PO SCH ×3 (08:27→17:12)
[2019-01-05] MEDS: losartan 50mg tablet PO SCH (08:27)
[2019-01-05 09:34] LABS: VANCOMYCIN,TROUGH 1.6 UG/ML (6.0-14.0)
[2019-01-05 11:30] VITALS: BP 123/72
[2019-01-05] MEDS ORDERED: VANC5VIA PO (13:40)
--- NOTE | 2019-01-05 16:00 | NUR ---
DC inst provided to pt. No IV.
--- NOTE | 2019-01-05 18:26 | NUR ---
Patient in room [facility]. I have received report from LARON Joya and had the opportunity to ask questions and assume patient care.
--- NOTE | 2019-01-05 18:40 | NUR ---
Spoke with patient who had been given discharge instructions from day nurse. PIV has also been taken out by the day nurse. Patient stated that he is waiting for his parents to come and get him. Patient ALOx4, and is in no apparent distress, lying in bed watching TV.
--- NOTE | 2019-01-06 00:58 | NUR ---
Patient was discharged with all his belongings, and discharge instructions. Patient pediatric critical care nurse wheeled him out via wheelchair. Parents transported him home
[2019-01-07 09:28] LABS: OCCULT BLOOD STOOL POSITIVE (Neg)
== END 2019-01-05 20:20 | disposition home or self-care (01) | DRG 248 ==
LOC: ER 17:56 → SUR 3N 22:40 → CMPBEDREQ 01-05 19:56
PROVIDERS: ADMIT Hospitalist; ATTEND Internal Medicine
PROC: 30233N1 Transfusion of Nonautologous Red Blood Cells into Peripheral Vein, Percutaneous Approach (ICD-10-PCS; 2019-01-03)
PROC: 5A09357 Assistance with Respiratory Ventilation, Less than 24 Consecutive Hours, Continuous Positive Airway Pressure (ICD-10-PCS; principal; 2019-01-04)
PROC: 5A09357 Assistance with Respiratory Ventilation, Less than 24 Consecutive Hours, Continuous Positive Airway Pressure (ICD-10-PCS; 2019-01-05)
DX: A04.72 Enterocolitis due to Clostridium difficile, not specified as recurrent (principal); N17.9 Acute kidney failure, unspecified; E46 Unspecified protein-calorie malnutrition; Z68.43 Body mass index [BMI] 50.0-59.9, adult; E86.9 Volume depletion, unspecified; F32.9 Major depressive disorder, single episode, unspecified; D50.0 Iron deficiency anemia secondary to blood loss (chronic); G47.00 Insomnia, unspecified; I10 Essential (primary) hypertension; Z86.19 Personal history of other infectious and parasitic diseases; Z79.899 Other long term (current) drug therapy
CPT/HCPCS: 36415; 71045; 80048; 80053; 80202; 81001; 82272; 83605; 83735; 84145; 85025; 85027; 85610; 85730; 86885; 86900; 86901; 86920; 87040; 87077; 87081; 93005; 93306; 96360; 99285; G0378; J3370; J7030; P9016

== ENCOUNTER 2019-01-16 13:16 | Inpatient (IN) | payer MEDICAID ==
--- NOTE | 2019-01-04 23:00 | NUR ---
Blood transfusing as ord. Resting HR noted as ST at 120/min. Dr. Zuleta observed VTach strips fr/earlier in evening. requests Echo; ordered. Addendum: 01/17/19 at 0658 by Yamel Graff RN Date to read 01/16/19, at 2300 f/the above note.
[~2019-01-16] VITALS: Ht 167.6 cm; Wt 170.5 kg
[~2019-01-16 13:16] MED LIST changes: -ADAL40PE5 SUBCUT; -ALBU18HF2 INH; -DEXM20CP6 PO; -FERR325T29 PO; -HYDR-3972 PO; -LORA10TA7 PO; +MONT10TA21 PO; -MONT10TA24 PO; -PRED10TA23 PO; -VANC125C5 PO; +VANC5VIA PO; +[UNRECOGNIZED DRUG - OTHER] PO
[2019-01-16] MEDS ORDERED: normal saline 1000ml 1,000 ML IV ONE (14:34)
[2019-01-16] MEDS ORDERED: ondansetron/PF 4mg/2ml inj IV ONE (14:35)
[2019-01-16] MEDS: morphine 2 MG/ML inj. syringe IV PRN (14:47)
[2019-01-16 15:22] LABS: BASOPHILS # (AUTO) 0.1 X10'3 (0-0.2); BASOPHILS % (AUTO) 0.7 % (0-1); EOSINOPHILS # (AUTO) 0.5 X10'3 (0-0.9); EOSINOPHILS % (AUTO) 5.2 % (0-6); LYMPHOCYTES # (AUTO) 2.1 X10'3 (1.1-4.8); LYMPHOCYTES % (AUTO) 22.9 % (21-51); MEAN CORPUSCULAR HEMOGLOBIN 25.5 PG (27.0-31.0); MEAN CORPUSCULAR HGB CONC 30.2 g/dL (33.0-36.5); MEAN CORPUSCULAR VOLUME 84.4 FL (78-98); MEAN PLATELET VOLUME 6.6 FL (7.4-10.4); MONOCYTES # (AUTO) 1.5 X10'3 (0-0.9); MONOCYTES % (AUTO) 16.8 % (2-12); NEUTROPHILS % (AUTO) 54.4 % (42-75); PLATELET COUNT 551 X10'3 (140-440); RED BLOOD COUNT 2.57 X10'6 (4.70-6.10); RED CELL DISTRIBUTION WIDTH 16.9 % (11.5-14.5); WHITE BLOOD COUNT 9.2 X10'3 (4.5-11.0)
[2019-01-16 15:26] LABS: HEMATOCRIT 21.7 % (42.0-52.0); HEMOGLOBIN 6.6 g/dl (14.0-17.9)
[2019-01-16 15:31] LABS: PARTIAL THROMBOPLASTIN TIME 27 SECONDS (22-32)
[2019-01-16 15:36] LABS: ALANINE AMINOTRANSFERASE 20 U/L (12-78); ALBUMIN 1.1 G/DL (3.4-5.0); ALBUMIN/GLOBULIN RATIO 0.3 (1.1-1.5); ALKALINE PHOSPHATASE 71 IU/L (46-116); ANION GAP 4 (8-16); ASPARTATE AMINO TRANSFERASE 14 U/L (10-37); BILIRUBIN,TOTAL 0.1 MG/DL (0.1-1.0); BLOOD UREA NITROGEN 12 MG/DL (7-18); BUN/CREATININE RATIO 10.9 (5.4-32.0); CALCIUM 7.3 MG/DL (8.5-10.1); CHLORIDE 104 MMOL/L (99-107); GLUCOSE 85 MG/DL (70-104); POTASSIUM 4.1 MMOL/L (3.5-5.1); SODIUM 135 MMOL/L (135-145); TOTAL CARBON DIOXIDE 26.8 MMOL/L (24-32); TOTAL PROTEIN 4.7 G/DL (6.4-8.2); eGFR 81 ML/MIN
[2019-01-16] MEDS ORDERED: PROP20TA6 PO (16:28)
[2019-01-16] MEDS ORDERED: DEXM20CP6 PO (16:28)
[2019-01-16] MEDS ORDERED: VANC25SO PO (16:31)
[2019-01-16] MEDS ORDERED: ALBU18HF2 PO (16:35)
[2019-01-16] MEDS ORDERED: MESA1.2T3 PO (16:35)
[2019-01-16] MEDS ORDERED: FERR325T33 PO (16:35)
[2019-01-16] MEDS ORDERED: LORA10TA7 PO (16:35)
[2019-01-16] MEDS ORDERED: ADAL40PE SUBCUT (16:36)
[2019-01-16] MEDS ORDERED: normal saline 1000ml 1,000 ML IV SCH (16:49)
[2019-01-16] MEDS ORDERED: magnesium Cl slow-release 64mg tablet PO PRN ×2 (16:50→20:55)
[2019-01-16] MEDS ORDERED: magnesium 2GM in 50ml NS 50 ML IV PRN ×2 (16:50→20:55)
[2019-01-16] MEDS ORDERED: potassium Cl 20 mEq SR tablet PO PRN ×4 (16:50→20:55)
[2019-01-16] MEDS ORDERED: magnesium 4gm in 100ml NS 100 ML IV PRN ×2 (16:50→20:55)
[2019-01-16] MEDS ORDERED: ondansetron/PF 4mg/2ml inj IV PRN ×2 (16:50→20:55)
[2019-01-16] MEDS ORDERED: potassium CL 10mEq/100ml bag 100 ML IV PRN ×4 (16:50→20:55)
[2019-01-16 18:00] VITALS: BP 128/60
--- NOTE | 2019-01-16 18:10 | NUR ---
Patient in room PCU 3025. I have received report from Sharon LARRY and had the opportunity to ask questions and assume patient care.
[2019-01-16 18:24] LABS: TOTAL CELLS COUNTED 100
[2019-01-16 18:26] LABS: ANISOCYTOSIS 1+; PLATELET ESTIMATE INCREASED; POLYCHROMASIA 1+
[2019-01-16 18:28] LABS: HYPOCHROMASIA 2+
--- NOTE | 2019-01-16 18:28 | NUR ---
Pt. arrived from ED via gurney. Assisted to bed w/o incident. Oriented to room and surroundings w/pt understanding. Telemetry placed as ord.
[2019-01-16 18:30] LABS: POIKILOCYTOSIS FEW
--- NOTE | 2019-01-16 19:00 | NUR ---
Pt. OOB to BR, VTach noted in 5, 9, and 14 beat runs. Pt. asymptomatic, BP stable. MD notified of VTach runs.
[2019-01-16 20:46] LABS: MAGNESIUM 1.9 MG/DL (1.5-2.4); PHOSPHORUS 3.8 MG/DL (2.3-4.5)
[2019-01-16] MEDS: normal saline 1000ml 1,000 ML IV SCH (20:54)
[2019-01-16 21:23] VITALS: BP 141/64
[2019-01-16 21:38] VITALS: BP 116/72
[2019-01-16 22:38] VITALS: BP 129/66
[2019-01-16 23:00] VITALS: BP 129/53
[2019-01-16 23:30] VITALS: BP 125/62
[2019-01-17] VITALS (17 sets, daily range): BP systolic 125–150; BP diastolic 51–86
[2019-01-17] MEDS: normal saline 1000ml 1,000 ML IV SCH ×4 (02:40→23:26)
[2019-01-17 05:34] LABS: ANION GAP 7 (8-16); BLOOD UREA NITROGEN 13 MG/DL (7-18); BUN/CREATININE RATIO 11.5 (5.4-32.0); CALCIUM 7.2 MG/DL (8.5-10.1); CHLORIDE 106 MMOL/L (99-107); CREATININE 1.13 MG/DL (0.60-1.10); GLUCOSE 86 MG/DL (70-104); MAGNESIUM 1.8 MG/DL (1.5-2.4); POTASSIUM 4.3 MMOL/L (3.5-5.1); SODIUM 136 MMOL/L (135-145); TOTAL CARBON DIOXIDE 22.7 MMOL/L (24-32); eGFR 78 ML/MIN
[2019-01-17 05:42] LABS: BASOPHILS % (AUTO) 0.4 % (0-1); EOSINOPHILS # (AUTO) 0.1 X10'3 (0-0.9); EOSINOPHILS % (AUTO) 1.2 % (0-6); HEMATOCRIT 27.4 % (42.0-52.0); HEMOGLOBIN 8.5 g/dl (14.0-17.9); LYMPHOCYTES # (AUTO) 1.3 X10'3 (1.1-4.8); LYMPHOCYTES % (AUTO) 10.6 % (21-51); MEAN CORPUSCULAR HEMOGLOBIN 26.2 PG (27.0-31.0); MEAN CORPUSCULAR VOLUME 84.5 FL (78-98); MEAN PLATELET VOLUME 7.1 FL (7.4-10.4); MONOCYTES # (AUTO) 1.3 X10'3 (0-0.9); NEUTROPHILS # (AUTO) 9.3 X10'3 (1.8-7.7); NEUTROPHILS % (AUTO) 76.8 % (42-75); PLATELET COUNT 422 X10'3 (140-440); RED BLOOD COUNT 3.24 X10'6 (4.70-6.10); RED CELL DISTRIBUTION WIDTH 16.1 % (11.5-14.5); WHITE BLOOD COUNT 12.1 X10'3 (4.5-11.0)
--- NOTE | 2019-01-17 06:30 | NUR ---
Patient in room PCU 3025. I have received report from Yamel LARRY, and had the opportunity to ask questions and assume patient care.
--- NOTE | 2019-01-17 06:30 | NUR ---
Problems reprioritized. Patient report given, questions answered & plan of care reviewed with Sharon LARRY.
--- NOTE | 2019-01-17 07:07 | NUR ---
Page to Dr. Kenyon Regarding V Tach Runs PAGER ID: [phone] MESSAGE: Pt. Carl Alfonso Rm [id number] Heart Rhythm 2-25 Beat Run of V Tach back to back. Pt. was having BM on the commode chair. Sharon LARRY [phone]
--- NOTE | 2019-01-17 07:18 | NUR ---
Page to ultrasound technologist re: Room 5175U please do echo ROBBIN, having runs of V-tach with exhertion
--- NOTE | 2019-01-17 07:49 | NUR ---
Per Dr. Kenyon: Adjust electrolytes per protocol, continue to monitor heart rhythm.
[2019-01-17 07:57] LABS: C DIFF ANTIGEN NEGATIVE (NEGATIVE); C DIFF SPECIMEN=DIARRHEA? ACCEPTABLE; C DIFFICILE TOXINS A&B NEGATIVE (Neg)
[2019-01-17] MEDS: K and/or MAG REPLACEMENT MC SCH (07:58)
[2019-01-17] MEDS ORDERED: K and/or MAG REPLACEMENT MC SCH (08:00)
[2019-01-17] MEDS ORDERED: traZODone 50mg tablet PO PRN (10:10)
[2019-01-17] MEDS ORDERED: non-formulary drug (Adalimumab (Humira) 1 SYR) SUBCUT SCH (10:10)
[2019-01-17] MEDS ORDERED: non-formulary drug (Albuterol Sulfate (Ventolin Hfa) 2 PUFF) PO PRN (10:10)
[2019-01-17] MEDS ORDERED: albuterol 2.5 MG/3 ML nebule NEB PRN (10:15)
[2019-01-17 11:01] LABS: HEMOGLOBIN 8.4 g/dl (14.0-17.9); MEAN CORPUSCULAR HEMOGLOBIN 26.9 PG (27.0-31.0); MEAN CORPUSCULAR HGB CONC 32.3 g/dL (33.0-36.5); MEAN CORPUSCULAR VOLUME 83.4 FL (78-98); MEAN PLATELET VOLUME 6.2 FL (7.4-10.4); PLATELET COUNT 431 X10'3 (140-440); RED BLOOD COUNT 3.12 X10'6 (4.70-6.10); RED CELL DISTRIBUTION WIDTH 16.3 % (11.5-14.5); WHITE BLOOD COUNT 10.4 X10'3 (4.5-11.0)
[2019-01-17] MEDS ORDERED: mesalamine 1.2gm ER tablet PO SCH (12:00)
[2019-01-17] MEDS: mesalamine 1.2gm ER tablet PO SCH ×2 (15:45→21:15)
[2019-01-17] MEDS: hydrocortisone sod succ/PF 100mg/2ml inj. IV SCH (15:48)
[2019-01-17 17:43] LABS: HEMATOCRIT 29.7 % (42.0-52.0); HEMOGLOBIN 9.5 g/dl (14.0-17.9); MEAN CORPUSCULAR HGB CONC 31.9 g/dL (33.0-36.5); MEAN CORPUSCULAR VOLUME 84.7 FL (78-98); MEAN PLATELET VOLUME 6.6 FL (7.4-10.4); PLATELET COUNT 430 X10'3 (140-440); RED CELL DISTRIBUTION WIDTH 16.1 % (11.5-14.5); WHITE BLOOD COUNT 8.9 X10'3 (4.5-11.0)
--- NOTE | 2019-01-17 18:33 | NUR ---
Dr. eKnyon notified of pt's 32 beat run of VTach. To transfuse one unit of PRBCs as ordered.
--- NOTE | 2019-01-17 18:34 | NUR ---
Patient in room PCU 3025. I have received report from Sharon LARRY and had the opportunity to ask questions and assume patient care.
--- NOTE | 2019-01-17 19:16 | NUR ---
One Unit of Blood is given on Day Shift. Repeat H/H is drawn. Pt Tolerates the unit of blood without side effect or reaction.
--- NOTE | 2019-01-17 19:21 | NUR ---
Dr. Kenyon wants to transfuse to hgb of 10.
[2019-01-17] MEDS ORDERED: non-formulary drug (Propranolol Hcl 1 TAB) PO SCH (20:00)
[2019-01-17] MEDS ORDERED: non-formulary drug (Risperidone 1 TAB) PO SCH (21:00)
[2019-01-17] MEDS: propranolol 10mg tablet PO SCH (21:16)
[2019-01-17] MEDS: risperiDONE 0.5mg tablet PO SCH (21:16)
[2019-01-17] MEDS: montelukast 10mg tablet PO SCH (21:16)
[2019-01-18] MEDS: hydrocortisone sod succ/PF 100mg/2ml inj. IV SCH ×3 (00:40→16:05)
[2019-01-18 02:00] VITALS: BP 143/92
[2019-01-18 02:36] LABS: ANION GAP 4 (8-16); BLOOD UREA NITROGEN 9 MG/DL (7-18); BUN/CREATININE RATIO 9.8 (5.4-32.0); CALCIUM 7.4 MG/DL (8.5-10.1); CHLORIDE 107 MMOL/L (99-107); CREATININE 0.92 MG/DL (0.60-1.10); GLUCOSE 117 MG/DL (70-104); POTASSIUM 4.2 MMOL/L (3.5-5.1); SODIUM 135 MMOL/L (135-145); TOTAL CARBON DIOXIDE 23.8 MMOL/L (24-32); eGFR > 90 ML/MIN
[2019-01-18 02:48] LABS: BASOPHILS % (AUTO) 0.4 % (0-1); EOSINOPHILS % (AUTO) 0.2 % (0-6); HEMOGLOBIN 10.2 g/dl (14.0-17.9); LYMPHOCYTES % (AUTO) 10.1 % (21-51); MEAN CORPUSCULAR HEMOGLOBIN 28.5 PG (27.0-31.0); MEAN CORPUSCULAR HGB CONC 32.8 g/dL (33.0-36.5); MEAN CORPUSCULAR VOLUME 86.7 FL (78-98); MEAN PLATELET VOLUME 6.4 FL (7.4-10.4); MONOCYTES # (AUTO) 0.9 X10'3 (0-0.9); MONOCYTES % (AUTO) 9.3 % (2-12); NEUTROPHILS # (AUTO) 7.8 X10'3 (1.8-7.7); PLATELET COUNT 322 X10'3 (140-440); RED BLOOD COUNT 3.57 X10'6 (4.70-6.10); RED CELL DISTRIBUTION WIDTH 15.4 % (11.5-14.5); WHITE BLOOD COUNT 9.7 X10'3 (4.5-11.0)
[2019-01-18 06:00] VITALS: BP 153/87
[2019-01-18] MEDS: normal saline 1000ml 1,000 ML IV SCH ×3 (06:21→19:48)
--- NOTE | 2019-01-18 06:22 | NUR ---
Patient in room PCU 3025. I have received report from LARON Montesinos and had the opportunity to ask questions and assume patient care.
--- NOTE | 2019-01-18 06:51 | NUR ---
Problems reprioritized. Patient report given, questions answered & plan of care reviewed with Tom LARRY.
[2019-01-18] MEDS: K and/or MAG REPLACEMENT MC SCH (07:44)
[2019-01-18] MEDS: propranolol 10mg tablet PO SCH ×2 (07:51→19:48)
[2019-01-18] MEDS: losartan 50mg tablet PO SCH (07:51)
[2019-01-18] MEDS: ferrous sulfate 325mg tablet PO SCH (07:51)
[2019-01-18] MEDS: mesalamine 1.2gm ER tablet PO SCH ×3 (07:55→20:37)
[2019-01-18] MEDS ORDERED: DEXMETHYLPHENIDATE HCL PO SCH (08:00)
--- NOTE | 2019-01-18 08:46 | NUR ---
PAGER ID: [phone] MESSAGE: RM [id number] Ashvin Alfonso Had a 6 beat run of VT. Do you want me to notify of every run of Vtac or only for above certain amount of beats? LARON Santos Ext [phone]
[2019-01-18 11:00] VITALS: BP 125/76
[2019-01-18 16:00] VITALS: BP 134/66
--- NOTE | 2019-01-18 18:07 | NUR ---
Problems reprioritized. Patient report given, questions answered & plan of care reviewed with LARON Mendenhall.
--- NOTE | 2019-01-18 18:10 | NUR ---
Patient in room PCU 3025. I have received report from Tom LARRY and had the opportunity to ask questions and assume patient care.
[2019-01-18 18:30] VITALS: BP 137/62
[2019-01-18] MEDS: montelukast 10mg tablet PO SCH (20:37)
[2019-01-18] MEDS: risperiDONE 0.5mg tablet PO SCH (20:38)
[2019-01-18 23:00] VITALS: BP 115/70
--- NOTE | 2019-01-19 01:12 | NUR ---
PCT noticed a large amount of bright, red, blood in patients stool
[2019-01-19] MEDS: hydrocortisone sod succ/PF 100mg/2ml inj. IV SCH ×3 (01:19→15:45)
[2019-01-19] MEDS: normal saline 1000ml 1,000 ML IV SCH ×3 (02:14→15:34)
[2019-01-19 03:00] VITALS: BP 136/80
[2019-01-19 06:04] LABS: BASOPHILS % (AUTO) 0.3 % (0-1); EOSINOPHILS % (AUTO) 0 % (0-6); HEMATOCRIT 32.3 % (42.0-52.0); HEMOGLOBIN 10.1 g/dl (14.0-17.9); LYMPHOCYTES # (AUTO) 0.9 X10'3 (1.1-4.8); LYMPHOCYTES % (AUTO) 8.6 % (21-51); MEAN CORPUSCULAR HEMOGLOBIN 27.6 PG (27.0-31.0); MEAN CORPUSCULAR HGB CONC 31.4 g/dL (33.0-36.5); MEAN PLATELET VOLUME 7.1 FL (7.4-10.4); MONOCYTES # (AUTO) 0.7 X10'3 (0-0.9); MONOCYTES % (AUTO) 6.9 % (2-12); NEUTROPHILS # (AUTO) 8.6 X10'3 (1.8-7.7); NEUTROPHILS % (AUTO) 84.2 % (42-75); PLATELET COUNT 296 X10'3 (140-440); RED BLOOD COUNT 3.67 X10'6 (4.70-6.10); RED CELL DISTRIBUTION WIDTH 15.9 % (11.5-14.5); WHITE BLOOD COUNT 10.2 X10'3 (4.5-11.0)
--- NOTE | 2019-01-19 06:15 | NUR ---
Problems reprioritized. Patient report given, questions answered & plan of care reviewed with Mirtha LARRY and Johanne(student).
[2019-01-19 06:16] LABS: ANION GAP 9 (8-16); BLOOD UREA NITROGEN 9 MG/DL (7-18); BUN/CREATININE RATIO 9.5 (5.4-32.0); CALCIUM 7.1 MG/DL (8.5-10.1); CHLORIDE 110 MMOL/L (99-107); CREATININE 0.95 MG/DL (0.60-1.10); GLUCOSE 129 MG/DL (70-104); MAGNESIUM 1.9 MG/DL (1.5-2.4); SODIUM 140 MMOL/L (135-145); eGFR > 90 ML/MIN
[2019-01-19 06:30] VITALS: BP 130/79
--- NOTE | 2019-01-19 06:53 | NUR ---
Patient in room U 3025. I have received report from Za LARRY and had the opportunity to ask questions and assume patient care. Addendum: 01/19/19 at 0709 by Mirtha Colon RN Patient resting comfortably during bedside report. Did not wake at this time. No s/s of distress.
--- NOTE | 2019-01-19 07:13 | NUR ---
Patient in room PCU 3025. I have received report from Emily LARRY and had the opportunity to ask questions and assume patient care.
[2019-01-19] MEDS: K and/or MAG REPLACEMENT MC SCH (08:00)
[2019-01-19] MEDS: propranolol 10mg tablet PO SCH ×2 (08:30→20:00)
[2019-01-19] MEDS: ferrous sulfate 325mg tablet PO SCH (08:30)
[2019-01-19] MEDS: losartan 50mg tablet PO SCH (08:30)
[2019-01-19] MEDS: pantoprazole 40mg Tablet.DR PO SCH (08:30)
[2019-01-19] MEDS: mesalamine 1.2gm ER tablet PO SCH ×3 (08:30→21:38)
[2019-01-19] MEDS: morphine 2 MG/ML inj. syringe IV PRN (10:58)
[2019-01-19 11:00] VITALS: BP 121/79
--- NOTE | 2019-01-19 11:20 | NUR ---
Per Dr Kenyon, advance patient's diet to full liquid diet and advance as tolerated to a regular diet. Addendum: 01/19/19 at 1826 by Mirtha Colon RN Patient tolerated full liquid diet well, regular diet ordered.
[2019-01-19 15:59] VITALS: BP 127/62
[2019-01-19 18:00] VITALS: BP 155/79
--- NOTE | 2019-01-19 18:36 | NUR ---
Problems reprioritized. Patient report given, questions answered & plan of care reviewed with Rachel LARRY.
--- NOTE | 2019-01-19 18:36 | NUR ---
Student documentation: I have reviewed and agree with all interventions, assessments performed and documented by Johanne DOUGLAS. Student Medication Administration: For this medication-pass time frame, all medication were reviewed, dispensed, administered and documented per hospital policy by Johanne DOUGLAS.
--- NOTE | 2019-01-19 19:22 | NUR ---
Pag Dr. Zuleta, was not corporate travel consultant,
--- NOTE | 2019-01-19 19:22 | NUR ---
Paged Cindy for new orders
[2019-01-19] MEDS ORDERED: tPA-cathflo 2 MG/2 ml IV flush IVF ONE (20:20)
--- NOTE | 2019-01-19 20:22 | NUR ---
Dr. White agreed to discontinuing IVF per pt request, now that pt is taking regular diet and plenty of PO fluids, in addition to slight ankle swelling today. Dr. White also ordered Cath-sagrario for the pts PICC due to no blood return.
[2019-01-19] MEDS: risperiDONE 0.5mg tablet PO SCH (21:38)
[2019-01-19] MEDS: montelukast 10mg tablet PO SCH (21:38)
[2019-01-19 22:00] VITALS: BP 125/80
[2019-01-20] MEDS: hydrocortisone sod succ/PF 100mg/2ml inj. IV SCH ×3 (00:52→15:31)
[2019-01-20 02:00] VITALS: BP 122/63
[2019-01-20] MEDS ORDERED: tPA-cathflo 2 MG/2 ml IV flush IVF ONE (03:10)
--- NOTE | 2019-01-20 05:53 | NUR ---
After 2 installations of Cath-Juve, pts PICC line still has no blood return. Notified lab so they could draw, he's a difficult stick however, they will have to send 2nd gauge maker to attempt draw.
--- NOTE | 2019-01-20 06:31 | NUR ---
Patient in room PCU 3025. I have received report from Rachel LARRY and had the opportunity to ask questions and assume patient care.
[2019-01-20 06:48] VITALS: BP 146/82
[2019-01-20] MEDS: ferrous sulfate 325mg tablet PO SCH (07:05)
[2019-01-20] MEDS: mesalamine 1.2gm ER tablet PO SCH ×3 (07:05→22:01)
[2019-01-20] MEDS: losartan 50mg tablet PO SCH (07:05)
[2019-01-20] MEDS: propranolol 10mg tablet PO SCH ×2 (07:05→22:02)
[2019-01-20] MEDS: pantoprazole 40mg Tablet.DR PO SCH (07:06)
[2019-01-20] MEDS: morphine 2 MG/ML inj. syringe IV PRN ×3 (07:15→23:03)
[2019-01-20] MEDS: K and/or MAG REPLACEMENT MC SCH (08:00)
[2019-01-20 09:35] LABS: ALBUMIN 1.1 G/DL (3.4-5.0); ANION GAP 9 (8-16); BLOOD UREA NITROGEN 10 MG/DL (7-18); BUN/CREATININE RATIO 10.2 (5.4-32.0); CHLORIDE 107 MMOL/L (99-107); CREATININE 0.98 MG/DL (0.60-1.10); GLUCOSE 161 MG/DL (70-104); MAGNESIUM 1.8 MG/DL (1.5-2.4); POTASSIUM 4.4 MMOL/L (3.5-5.1); SODIUM 136 MMOL/L (135-145); TOTAL CARBON DIOXIDE 20.4 MMOL/L (24-32); eGFR > 90 ML/MIN
[2019-01-20 10:58] LABS: BASOPHILS % (AUTO) 0.1 % (0-1); EOSINOPHILS % (AUTO) 0 % (0-6); HEMATOCRIT 32.5 % (42.0-52.0); HEMOGLOBIN 10.1 g/dl (14.0-17.9); LYMPHOCYTES % (AUTO) 7.6 % (21-51); MEAN CORPUSCULAR HEMOGLOBIN 27.4 PG (27.0-31.0); MEAN CORPUSCULAR VOLUME 88.4 FL (78-98); MEAN PLATELET VOLUME 6.6 FL (7.4-10.4); MONOCYTES % (AUTO) 7.1 % (2-12); NEUTROPHILS # (AUTO) 11.6 X10'3 (1.8-7.7); NEUTROPHILS % (AUTO) 85.2 % (42-75); PLATELET COUNT 332 X10'3 (140-440); RED BLOOD COUNT 3.68 X10'6 (4.70-6.10); WHITE BLOOD COUNT 13.6 X10'3 (4.5-11.0)
[2019-01-20 11:00] VITALS: BP 149/79
[2019-01-20 15:00] VITALS: BP 146/74
--- NOTE | 2019-01-20 16:57 | NUR ---
Problems reprioritized. Patient report given, questions answered & plan of care reviewed with Shana LARRY.
[2019-01-20 17:24] LABS: OCCULT BLOOD STOOL POSITIVE (Neg)
[2019-01-20 18:00] VITALS: BP 154/79
--- NOTE | 2019-01-20 18:40 | NUR ---
Problems reprioritized. Patient report given, questions answered & plan of care reviewed with Arti.
--- NOTE | 2019-01-20 18:44 | NUR ---
Patient in room PCU 3025. I have received report from Janie Wheatley and had the opportunity to ask questions and assume patient care.
--- NOTE | 2019-01-20 19:00 | NUR ---
pt had SVT 200s, vital sign stable, called Dr. Brasher he gave order of 10mg cardizem and called rapid response
[2019-01-20] MEDS ORDERED: diltiazem 5mg/ml 5ml inj. IV ONE (19:20)
[2019-01-20 19:52] LABS: BASOPHILS % (AUTO) 0.1 % (0-1); EOSINOPHILS % (AUTO) 0 % (0-6); HEMATOCRIT 33.4 % (42.0-52.0); HEMOGLOBIN 10.5 g/dl (14.0-17.9); LYMPHOCYTES # (AUTO) 0.9 X10'3 (1.1-4.8); LYMPHOCYTES % (AUTO) 6.3 % (21-51); MEAN CORPUSCULAR HEMOGLOBIN 27.4 PG (27.0-31.0); MEAN CORPUSCULAR HGB CONC 31.6 g/dL (33.0-36.5); MEAN CORPUSCULAR VOLUME 86.8 FL (78-98); MEAN PLATELET VOLUME 6.9 FL (7.4-10.4); MONOCYTES # (AUTO) 1.1 X10'3 (0-0.9); MONOCYTES % (AUTO) 7.3 % (2-12); NEUTROPHILS # (AUTO) 12.8 X10'3 (1.8-7.7); NEUTROPHILS % (AUTO) 86.3 % (42-75); PLATELET COUNT 311 X10'3 (140-440); RED BLOOD COUNT 3.84 X10'6 (4.70-6.10); RED CELL DISTRIBUTION WIDTH 16.2 % (11.5-14.5); WHITE BLOOD COUNT 14.8 X10'3 (4.5-11.0)
[2019-01-20 19:55] LABS: PARTIAL THROMBOPLASTIN TIME 25 SECONDS (22-32)
[2019-01-20 19:59] LABS: ALBUMIN 1.1 G/DL (3.4-5.0); ANION GAP 6 (8-16); BLOOD UREA NITROGEN 11 MG/DL (7-18); BUN/CREATININE RATIO 11.6 (5.4-32.0); CALCIUM 7.1 MG/DL (8.5-10.1); CHLORIDE 107 MMOL/L (99-107); CREATININE 0.95 MG/DL (0.60-1.10); GLUCOSE 176 MG/DL (70-104); PHOSPHORUS 2.5 MG/DL (2.3-4.5); POTASSIUM 4.6 MMOL/L (3.5-5.1); SODIUM 136 MMOL/L (135-145); TOTAL CARBON DIOXIDE 22.9 MMOL/L (24-32); TROPONIN I < 0.04 NG/ML (0.0-0.05); eGFR > 90 ML/MIN
--- NOTE | 2019-01-20 20:07 | NUR ---
pt HR is now on sinus 95
[2019-01-20] MEDS: montelukast 10mg tablet PO SCH (22:00)
[2019-01-20] MEDS: risperiDONE 0.5mg tablet PO SCH (22:01)
--- NOTE | 2019-01-20 22:45 | NUR ---
called Dr. Brasher about epsioded of SVT, he gave an order 40mg beta alice Addendum: 01/21/19 at 0538 by Arti Mallory RN pt had total 2 episodes of burst of Vtach and sustain SVT up to 240 HR last about 1 and a half minute after the first episode in rapid response. Contacted Dr. Brasher, he gave an order of once 40mg propranolol, and he increased the dosed from 20mg to 40mg BID, pt did not have anymore episode of SVT after the one time dose of 40mg propranolol was given @9257
[2019-01-20] MEDS ORDERED: propranolol 10mg tablet PO ONE (22:50)
[2019-01-20 23:00] VITALS: BP 155/93
[2019-01-21 03:00] VITALS: BP 136/92
[2019-01-21 06:04] LABS: ALBUMIN 1.1 G/DL (3.4-5.0); ANION GAP 5 (8-16); BLOOD UREA NITROGEN 14 MG/DL (7-18); BUN/CREATININE RATIO 14.7 (5.4-32.0); CALCIUM 7.4 MG/DL (8.5-10.1); CHLORIDE 107 MMOL/L (99-107); CREATININE 0.95 MG/DL (0.60-1.10); GLUCOSE 90 MG/DL (70-104); POTASSIUM 4.5 MMOL/L (3.5-5.1); SODIUM 135 MMOL/L (135-145); eGFR > 90 ML/MIN
--- NOTE | 2019-01-21 06:25 | NUR ---
Problems reprioritized. Patient report given, questions answered & plan of care reviewed with Gentry LARRY.
--- NOTE | 2019-01-21 06:34 | NUR ---
Patient in room PCU 3012. I have received report from [facility] and had the opportunity to ask questions and assume patient care.
[2019-01-21 07:00] VITALS: BP 140/96
[2019-01-21 07:40] LABS: BASOPHILS # (AUTO) 0.1 X10'3 (0-0.2); BASOPHILS % (AUTO) 0.5 % (0-1); EOSINOPHILS # (AUTO) 0.1 X10'3 (0-0.9); EOSINOPHILS % (AUTO) 0.4 % (0-6); HEMOGLOBIN 12.2 g/dl (14.0-17.9); LYMPHOCYTES # (AUTO) 2.2 X10'3 (1.1-4.8); LYMPHOCYTES % (AUTO) 9.2 % (21-51); MEAN CORPUSCULAR HEMOGLOBIN 27.4 PG (27.0-31.0); MEAN CORPUSCULAR HGB CONC 31.1 g/dL (33.0-36.5); MEAN CORPUSCULAR VOLUME 87.9 FL (78-98); MEAN PLATELET VOLUME 7.1 FL (7.4-10.4); MONOCYTES # (AUTO) 1.5 X10'3 (0-0.9); MONOCYTES % (AUTO) 6.5 % (2-12); NEUTROPHILS # (AUTO) 19.9 X10'3 (1.8-7.7); NEUTROPHILS % (AUTO) 83.4 % (42-75); PLATELET COUNT 370 X10'3 (140-440); RED BLOOD COUNT 4.44 X10'6 (4.70-6.10); RED CELL DISTRIBUTION WIDTH 16.3 % (11.5-14.5); WHITE BLOOD COUNT 23.8 X10'3 (4.5-11.0)
[2019-01-21] MEDS: mesalamine 1.2gm ER tablet PO SCH ×2 (07:41→13:15)
[2019-01-21] MEDS: ferrous sulfate 325mg tablet PO SCH (07:41)
[2019-01-21] MEDS: losartan 50mg tablet PO SCH (07:42)
[2019-01-21] MEDS: pantoprazole 40mg Tablet.DR PO SCH (07:42)
[2019-01-21] MEDS: K and/or MAG REPLACEMENT MC SCH (07:48)
[2019-01-21] MEDS ORDERED: propranolol 10mg tablet PO SCH (08:00)
[2019-01-21 08:29] LABS: LARGE PLATELETS FEW; PLATELET ESTIMATE NORMAL
[2019-01-21] MEDS ORDERED: predniSONE 20 mg tablet PO SCH (08:30)
[2019-01-21 11:00] VITALS: BP 143/78
[2019-01-21] MEDS ORDERED: PANT40TA4 PO (13:55)
[2019-01-21] MEDS ORDERED: PRED20TA PO (13:55)
--- NOTE | 2019-01-21 15:47 | NUR ---
patient discharged per orders. All belongings were gathered and taken with patient. PICC line was removed and tip intact. Tele box removed and returned. New prescriptions were called in to [facility] in [place]. Patient was taken by wheelchair down where family member were waiting for him.
[2019-01-31] MEDS ORDERED: HUMIRA SQ SCH (09:00)
== END 2019-01-21 15:38 | disposition home or self-care (01) | DRG 245 ==
LOC: ER 13:17 → PCU 3S 18:17
PROVIDERS: ADMIT Internal Medicine; ATTEND Internal Medicine
PROC: 30233N1 Transfusion of Nonautologous Red Blood Cells into Peripheral Vein, Percutaneous Approach (ICD-10-PCS; 2019-01-16)
PROC: 02HV33Z Insertion of Infusion Device into Superior Vena Cava, Percutaneous Approach (ICD-10-PCS; 2019-01-16)
PROC: B548ZZA Ultrasonography of Superior Vena Cava, Guidance (ICD-10-PCS; 2019-01-16)
PROC: 30233N1 Transfusion of Nonautologous Red Blood Cells into Peripheral Vein, Percutaneous Approach (ICD-10-PCS; 2019-01-17)
PROC: 5A09357 Assistance with Respiratory Ventilation, Less than 24 Consecutive Hours, Continuous Positive Airway Pressure (ICD-10-PCS; principal; 2019-01-18)
PROC: 5A09357 Assistance with Respiratory Ventilation, Less than 24 Consecutive Hours, Continuous Positive Airway Pressure (ICD-10-PCS; 2019-01-19)
PROC: 5A09357 Assistance with Respiratory Ventilation, Less than 24 Consecutive Hours, Continuous Positive Airway Pressure (ICD-10-PCS; 2019-01-20)
DX: K51.90 Ulcerative colitis, unspecified, without complications (principal); I47.2 Ventricular tachycardia; E43 Unspecified severe protein-calorie malnutrition; A04.72 Enterocolitis due to Clostridium difficile, not specified as recurrent; D62 Acute posthemorrhagic anemia; Z68.44 Body mass index [BMI] 60.0-69.9, adult; G47.00 Insomnia, unspecified; E66.9 Obesity, unspecified; G47.30 Sleep apnea, unspecified; I10 Essential (primary) hypertension; Z87.891 Personal history of nicotine dependence; Z79.899 Other long term (current) drug therapy
CPT/HCPCS: 36415; 36569; 71045; 76937; 80048; 80053; 82272; 83605; 83735; 84100; 84484; 85025; 85027; 85610; 85730; 86885; 86900; 86901; 86920; 87040; 87081; 87324; 87449; 93005; 93308; 96374; 99291; G0378; J1720; J2270; J2405; J2997; J3490; J7030; J7512; P9016

== ENCOUNTER 2019-02-14 22:00 | Inpatient (IN) | payer MEDICAID ==
[~2019-02-14] VITALS: Ht 167.6 cm; Wt 146.0 kg
[~2019-02-14 22:00] MED LIST changes: +ADAL40PE SUBCUT; +ALBU18HF2 PO; +DEXM20CP6 PO; +FERR325T33 PO; +LORA10TA7 PO; +MESA1.2T3 PO; +PANT40TA4 PO; +PRED20TA PO; -PROP10TA10 PO; +PROP20TA6 PO; -VANC5VIA PO; -[UNRECOGNIZED DRUG - OTHER] PO
[2019-02-14] MEDS ORDERED: normal saline 1000ML IV soln IV ONE (22:20)
[2019-02-14 22:48] LABS: BASOPHILS # (AUTO) 0.1 X10'3 (0-0.2); BASOPHILS % (AUTO) 0.9 % (0-1); EOSINOPHILS # (AUTO) 0.3 X10'3 (0-0.9); EOSINOPHILS % (AUTO) 4.4 % (0-6); HEMATOCRIT 22.5 % (42.0-52.0); LYMPHOCYTES # (AUTO) 1.5 X10'3 (1.1-4.8); LYMPHOCYTES % (AUTO) 24.4 % (21-51); MEAN CORPUSCULAR HEMOGLOBIN 25.2 PG (27.0-31.0); MEAN CORPUSCULAR HGB CONC 30.8 g/dL (33.0-36.5); MEAN CORPUSCULAR VOLUME 81.8 FL (78-98); MEAN PLATELET VOLUME 6.5 FL (7.4-10.4); MONOCYTES % (AUTO) 16.4 % (2-12); NEUTROPHILS # (AUTO) 3.4 X10'3 (1.8-7.7); NEUTROPHILS % (AUTO) 53.9 % (42-75); PLATELET COUNT 496 X10'3 (140-440); RED BLOOD COUNT 2.75 X10'6 (4.70-6.10); RED CELL DISTRIBUTION WIDTH 17.1 % (11.5-14.5); WHITE BLOOD COUNT 6.3 X10'3 (4.5-11.0)
[2019-02-14 22:55] LABS: HEMOGLOBIN 6.9 g/dl (14.0-17.9)
--- NOTE | 2019-02-14 22:57 | NUR ---
Patient is laying comfortably on family ira at bedside. He complains of rectal bleeding and abdominal pain/cramping. I will continue to monitor.
[2019-02-14 23:03] LABS: PARTIAL THROMBOPLASTIN TIME 21 SECONDS (22-32)
[2019-02-14 23:06] LABS: ALANINE AMINOTRANSFERASE 11 U/L (12-78); ALBUMIN 1.5 G/DL (3.4-5.0); ALBUMIN/GLOBULIN RATIO 0.4 (1.1-1.5); ALKALINE PHOSPHATASE 51 IU/L (46-116); ANION GAP 5 (8-16); ASPARTATE AMINO TRANSFERASE 12 U/L (10-37); BILIRUBIN,TOTAL 0.2 MG/DL (0.1-1.0); BLOOD UREA NITROGEN 16 MG/DL (7-18); BUN/CREATININE RATIO 13.3 (5.4-32.0); CALCIUM 7.4 MG/DL (8.5-10.1); CHLORIDE 101 MMOL/L (99-107); GLUCOSE 119 MG/DL (70-104); POTASSIUM 4.1 MMOL/L (3.5-5.1); SODIUM 131 MMOL/L (135-145); TOTAL CARBON DIOXIDE 25.4 MMOL/L (24-32); TOTAL PROTEIN 5.5 G/DL (6.4-8.2); eGFR 73 ML/MIN
[2019-02-14] MEDS ORDERED: ADAL80PE SQ (23:47)
[2019-02-14] MEDS ORDERED: ondansetron/PF 4mg/2ml inj IV PRN (23:50)
[2019-02-14] MEDS ORDERED: magnesium hydroxide 30ml (MOM) UD suspension PO PRN (23:50)
[2019-02-14] MEDS ORDERED: acetaminophen 325mg tablet PO PRN (23:50)
[2019-02-14] MEDS ORDERED: potassium Cl 20 mEq SR tablet PO PRN ×2 (23:50)
[2019-02-14] MEDS ORDERED: magnesium Cl slow-release 64mg tablet PO PRN (23:50)
[2019-02-14] MEDS ORDERED: mag hydrox/Alum hydrox/simeth 30ml oral suspension PO PRN (23:50)
[2019-02-14] MEDS ORDERED: non-formulary drug (Adalimumab (Humira) 1 SYR) SUBCUT SCH (23:55)
[2019-02-14] MEDS ORDERED: traZODone 50mg tablet PO PRN (23:55)
[2019-02-14] MEDS ORDERED: ADALIMUMAB 80 MG SQ SCH (23:55)
[2019-02-15] VITALS (12 sets, daily range): BP systolic 112–153; BP diastolic 45–83
[2019-02-15] MEDS ORDERED: albuterol 2.5 MG/3 ML nebule NEB PRN (00:30)
--- NOTE | 2019-02-15 00:35 | NUR ---
Pt admitted to room 349B from er. amb to bed alert and oriented. oriented to room and routine. Addendum: 02/15/19 at 0043 by Althae Howell RN Amended: Links added.
[2019-02-15] MEDS: normal saline 1000ml 1,000 ML IV SCH ×3 (01:06→16:16)
[2019-02-15] MEDS: hydrocortisone sod succ/PF 100mg/2ml inj. IV SCH ×3 (01:08→16:12)
[2019-02-15 01:13] LABS: PLATELET ESTIMATE INCREASED; TOTAL CELLS COUNTED 100
[2019-02-15 01:14] LABS: ANISOCYTOSIS 1+
[2019-02-15] MEDS ORDERED: morphine 2 MG/ML inj. syringe IV PRN (01:40)
[2019-02-15] MEDS: morphine 2 MG/ML inj. syringe IV PRN ×3 (03:58→18:57)
--- NOTE | 2019-02-15 06:14 | NUR ---
Patient in room REBECCA 349. I have received report from LARON Espinoza and had the opportunity to ask questions and assume patient care.
--- NOTE | 2019-02-15 06:21 | NUR ---
Problems reprioritized. Patient report given, questions answered & plan of care reviewed with Marcellus LARRY.
[2019-02-15] MEDS: ferrous sulfate 325mg tablet PO SCH (07:05)
[2019-02-15] MEDS: propranolol 10mg tablet PO SCH ×2 (07:05→20:44)
[2019-02-15] MEDS: losartan 50mg tablet PO SCH (07:05)
[2019-02-15] MEDS: mesalamine 1.2gm ER tablet PO SCH ×3 (07:05→16:12)
[2019-02-15] MEDS: K and/or MAG REPLACEMENT MC SCH (07:15)
[2019-02-15] MEDS: DEXMETHYLPHENIDATE HCL 20 MG PO SCH (08:00)
[2019-02-15 09:57] LABS: BASOPHILS % (AUTO) 0.7 % (0-1); EOSINOPHILS % (AUTO) 0.1 % (0-6); HEMATOCRIT 26.2 % (42.0-52.0); HEMOGLOBIN 8.4 g/dl (14.0-17.9); LYMPHOCYTES # (AUTO) 0.7 X10'3 (1.1-4.8); LYMPHOCYTES % (AUTO) 12.7 % (21-51); MEAN CORPUSCULAR HEMOGLOBIN 26.8 PG (27.0-31.0); MEAN CORPUSCULAR HGB CONC 31.9 g/dL (33.0-36.5); MEAN CORPUSCULAR VOLUME 83.9 FL (78-98); MEAN PLATELET VOLUME 6.6 FL (7.4-10.4); MONOCYTES # (AUTO) 0.4 X10'3 (0-0.9); MONOCYTES % (AUTO) 7.1 % (2-12); NEUTROPHILS # (AUTO) 4.1 X10'3 (1.8-7.7); NEUTROPHILS % (AUTO) 79.4 % (42-75); PLATELET COUNT 529 X10'3 (140-440); RED BLOOD COUNT 3.12 X10'6 (4.70-6.10); RED CELL DISTRIBUTION WIDTH 16.4 % (11.5-14.5); WHITE BLOOD COUNT 5.2 X10'3 (4.5-11.0)
[2019-02-15 10:04] LABS: ALANINE AMINOTRANSFERASE 13 U/L (12-78); ALBUMIN 1.4 G/DL (3.4-5.0); ALBUMIN/GLOBULIN RATIO 0.3 (1.1-1.5); ALKALINE PHOSPHATASE 51 IU/L (46-116); ANION GAP 4 (8-16); ASPARTATE AMINO TRANSFERASE 10 U/L (10-37); BILIRUBIN,TOTAL 0.2 MG/DL (0.1-1.0); BLOOD UREA NITROGEN 13 MG/DL (7-18); BUN/CREATININE RATIO 12.7 (5.4-32.0); CALCIUM 7.3 MG/DL (8.5-10.1); CHLORIDE 103 MMOL/L (99-107); CREATININE 1.02 MG/DL (0.60-1.10); GLUCOSE 171 MG/DL (70-104); MAGNESIUM 1.7 MG/DL (1.5-2.4); POTASSIUM 4.3 MMOL/L (3.5-5.1); SODIUM 131 MMOL/L (135-145); TOTAL CARBON DIOXIDE 23.6 MMOL/L (24-32); TOTAL PROTEIN 5.5 G/DL (6.4-8.2); eGFR 88 ML/MIN
[2019-02-15 11:30] LABS: ANISOCYTOSIS 1+; PLATELET ESTIMATE INCREASED
[2019-02-15 11:31] LABS: ELLIPTOCYTES 1+; POLYCHROMASIA FEW; SCHISTOCYTES FEW; TEAR DROP CELLS FEW
[2019-02-15 11:32] LABS: BURR CELLS FEW
--- NOTE | 2019-02-15 16:04 | NUR ---
Problems reprioritized. Patient report given, questions answered & plan of care reviewed with LARON Vazquez.
--- NOTE | 2019-02-15 19:18 | NUR ---
GAVE REPORT TO ALONSO LARRY.
[2019-02-15] MEDS: montelukast 10mg tablet PO SCH (20:44)
[2019-02-15] MEDS: risperiDONE 0.5mg tablet PO SCH (20:44)
[2019-02-16] VITALS: BP 113/66
[2019-02-16] MEDS: hydrocortisone sod succ/PF 100mg/2ml inj. IV SCH ×3 (00:03→17:19)
[2019-02-16] MEDS: normal saline 1000ml 1,000 ML IV SCH (04:30)
--- NOTE | 2019-02-16 06:30 | NUR ---
Problems reprioritized. Patient report given, questions answered & plan of care reviewed with SHON. Addendum: 02/16/19 at 0631 by Michael Delgadillo RN Amended: Links added.
[2019-02-16 06:59] LABS: BASOPHILS % (AUTO) 0.2 % (0-1); EOSINOPHILS % (AUTO) 0.1 % (0-6); HEMOGLOBIN 8.5 g/dl (14.0-17.9); LYMPHOCYTES # (AUTO) 1.1 X10'3 (1.1-4.8); LYMPHOCYTES % (AUTO) 15.6 % (21-51); MEAN CORPUSCULAR HEMOGLOBIN 26.4 PG (27.0-31.0); MEAN CORPUSCULAR HGB CONC 31.7 g/dL (33.0-36.5); MEAN CORPUSCULAR VOLUME 83.4 FL (78-98); MEAN PLATELET VOLUME 6.6 FL (7.4-10.4); MONOCYTES % (AUTO) 13.8 % (2-12); NEUTROPHILS # (AUTO) 4.9 X10'3 (1.8-7.7); NEUTROPHILS % (AUTO) 70.3 % (42-75); PLATELET COUNT 514 X10'3 (140-440); RED BLOOD COUNT 3.23 X10'6 (4.70-6.10); RED CELL DISTRIBUTION WIDTH 16.7 % (11.5-14.5)
[2019-02-16 07:07] LABS: ALANINE AMINOTRANSFERASE 12 U/L (12-78); ALBUMIN 1.4 G/DL (3.4-5.0); ALBUMIN/GLOBULIN RATIO 0.3 (1.1-1.5); ALKALINE PHOSPHATASE 47 IU/L (46-116); ANION GAP 4 (8-16); ASPARTATE AMINO TRANSFERASE 8 U/L (10-37); BILIRUBIN,TOTAL 0.2 MG/DL (0.1-1.0); BLOOD UREA NITROGEN 10 MG/DL (7-18); CALCIUM 7.5 MG/DL (8.5-10.1); CHLORIDE 108 MMOL/L (99-107); CREATININE 0.91 MG/DL (0.60-1.10); GLUCOSE 112 MG/DL (70-104); MAGNESIUM 1.9 MG/DL (1.5-2.4); SODIUM 137 MMOL/L (135-145); TOTAL CARBON DIOXIDE 24.7 MMOL/L (24-32); TOTAL PROTEIN 5.6 G/DL (6.4-8.2); eGFR > 90 ML/MIN
[2019-02-16] MEDS: losartan 50mg tablet PO SCH (07:58)
[2019-02-16] MEDS: ferrous sulfate 325mg tablet PO SCH (07:58)
[2019-02-16] MEDS: propranolol 10mg tablet PO SCH ×2 (07:58→21:14)
[2019-02-16] MEDS: K and/or MAG REPLACEMENT MC SCH (07:59)
[2019-02-16] MEDS: DEXMETHYLPHENIDATE HCL 20 MG PO SCH (07:59)
[2019-02-16 08:00] VITALS: BP 141/77
[2019-02-16] MEDS: mesalamine 1.2gm ER tablet PO SCH ×3 (08:02→17:19)
[2019-02-16 09:34] LABS: ANISOCYTOSIS 1+; PLATELET ESTIMATE INCREASED
[2019-02-16 09:35] LABS: MICROCYTOSIS 1+; POLYCHROMASIA 1+
--- NOTE | 2019-02-16 12:01 | NUR ---
made aware of BLE edema. Fluids DC'd.
[2019-02-16 12:02] VITALS: BP 127/73
--- NOTE | 2019-02-16 14:37 | NUR ---
Pt's previous parental guardian Lucina Royal [phone] here to discuss pt. POC. Verified that it is ok to speak with her with pt. Lucina wanted staff to know pt. is not taking medications, not exercising, and eating Takis which are against his diet at home. States this is r/t mental deficits. She stated he has had issues walking up the stairs at home, however here he has had no issues- no SOB no DME with walking multiple laps in the hospital over 300 ft. paged case management and SS to discuss possibility of IHSS and further resources with family.
--- NOTE | 2019-02-16 16:58 | NUR ---
PAGER ID: [phone] MESSAGE: [id number] Carl Alfonso Pt. needs diet and PT consult per family and SS. Please see nursing notes. [id number]
--- NOTE | 2019-02-16 18:38 | NUR ---
Gave report to Shahid LARRY.
[2019-02-16 18:40] VITALS: BP 114/67
[2019-02-16] MEDS: morphine 2 MG/ML inj. syringe IV PRN (19:22)
[2019-02-16] MEDS: montelukast 10mg tablet PO SCH (21:15)
[2019-02-16] MEDS: risperiDONE 0.5mg tablet PO SCH (21:15)
[2019-02-17] MEDS: hydrocortisone sod succ/PF 100mg/2ml inj. IV SCH ×3 (01:00→17:00)
[2019-02-17] MEDS: morphine 2 MG/ML inj. syringe IV PRN (05:05)
--- NOTE | 2019-02-17 06:57 | NUR ---
Problems reprioritized. Patient report given, questions answered & plan of care reviewed with JEANCARLOS. Addendum: 02/17/19 at 0657 by Michael Delgadillo RN Amended: Links added.
[2019-02-17 07:00] VITALS: BP 123/75
--- NOTE | 2019-02-17 07:13 | NUR ---
Patient in room REBECCA 349. I have received report from Shahid LARRY and had the opportunity to ask questions and assume patient care.
[2019-02-17] MEDS: DEXMETHYLPHENIDATE HCL 20 MG PO SCH (08:00)
[2019-02-17] MEDS: K and/or MAG REPLACEMENT MC SCH (08:00)
[2019-02-17 08:45] LABS: C DIFF ANTIGEN NEGATIVE (NEGATIVE); C DIFF SPECIMEN=DIARRHEA? ACCEPTABLE; C DIFFICILE TOXINS A&B NEGATIVE (Neg)
[2019-02-17] MEDS: mesalamine 1.2gm ER tablet PO SCH ×3 (08:54→17:00)
[2019-02-17] MEDS: losartan 50mg tablet PO SCH (08:55)
[2019-02-17] MEDS: propranolol 10mg tablet PO SCH ×2 (08:55→20:21)
[2019-02-17] MEDS: ferrous sulfate 325mg tablet PO SCH (08:55)
[2019-02-17 12:00] VITALS: BP 117/76
[2019-02-17 12:36] LABS: ALANINE AMINOTRANSFERASE 14 U/L (12-78); ALBUMIN 1.7 G/DL (3.4-5.0); ALBUMIN/GLOBULIN RATIO 0.4 (1.1-1.5); ALKALINE PHOSPHATASE 57 IU/L (46-116); ANION GAP 5 (8-16); ASPARTATE AMINO TRANSFERASE 8 U/L (10-37); BILIRUBIN,TOTAL 0.1 MG/DL (0.1-1.0); BLOOD UREA NITROGEN 8 MG/DL (7-18); BUN/CREATININE RATIO 8.7 (5.4-32.0); CALCIUM 7.9 MG/DL (8.5-10.1); CHLORIDE 108 MMOL/L (99-107); CREATININE 0.92 MG/DL (0.60-1.10); GLUCOSE 94 MG/DL (70-104); POTASSIUM 4.1 MMOL/L (3.5-5.1); SODIUM 139 MMOL/L (135-145); TOTAL CARBON DIOXIDE 25.8 MMOL/L (24-32); TOTAL PROTEIN 6.4 G/DL (6.4-8.2); eGFR > 90 ML/MIN
[2019-02-17] MEDS: HYDROcodone/acetaminophen 5mg/325mg tablet PO PRN ×2 (13:50→20:22)
[2019-02-17 15:22] LABS: BASOPHILS # (AUTO) 0.1 X10'3 (0-0.2); BASOPHILS % (AUTO) 0.8 % (0-1); EOSINOPHILS % (AUTO) 0.2 % (0-6); LYMPHOCYTES # (AUTO) 1.8 X10'3 (1.1-4.8); LYMPHOCYTES % (AUTO) 14.5 % (21-51); MEAN CORPUSCULAR HEMOGLOBIN 25.9 PG (27.0-31.0); MEAN CORPUSCULAR HGB CONC 31.2 g/dL (33.0-36.5); MEAN CORPUSCULAR VOLUME 83.1 FL (78-98); MEAN PLATELET VOLUME 6.6 FL (7.4-10.4); MONOCYTES # (AUTO) 1.7 X10'3 (0-0.9); MONOCYTES % (AUTO) 13.9 % (2-12); NEUTROPHILS # (AUTO) 8.6 X10'3 (1.8-7.7); NEUTROPHILS % (AUTO) 70.6 % (42-75); PLATELET COUNT 604 X10'3 (140-440); RED BLOOD COUNT 3.49 X10'6 (4.70-6.10); WHITE BLOOD COUNT 12.2 X10'3 (4.5-11.0)
[2019-02-17 15:45] LABS: ANISOCYTOSIS 1+; PLATELET ESTIMATE INCREASED; TOTAL CELLS COUNTED 100
[2019-02-17 15:46] LABS: POLYCHROMASIA FEW
[2019-02-17 15:47] LABS: SCHISTOCYTES FEW
[2019-02-17 15:48] LABS: BURR CELLS FEW
[2019-02-17 18:30] VITALS: BP 120/61
--- NOTE | 2019-02-17 18:44 | NUR ---
Problems reprioritized. Patient report given, questions answered & plan of care reviewed with Shahid LARRY.
[2019-02-17] MEDS: risperiDONE 0.5mg tablet PO SCH (20:21)
[2019-02-17] MEDS: montelukast 10mg tablet PO SCH (20:22)
[2019-02-18] VITALS: BP 134/70
[2019-02-18] MEDS: HYDROcodone/acetaminophen 5mg/325mg tablet PO PRN ×2 (04:40→11:43)
--- NOTE | 2019-02-18 06:48 | NUR ---
Problems reprioritized. Patient report given, questions answered & plan of care reviewed with MATILDE. Addendum: 02/18/19 at 0649 by Michael Delgadillo RN Amended: Links added.
--- NOTE | 2019-02-18 06:48 | NUR ---
Patient in room REBECCA 349. I have received report from LARON Key and had the opportunity to ask questions and assume patient care.
[2019-02-18] MEDS: K and/or MAG REPLACEMENT MC SCH (08:00)
[2019-02-18] MEDS ORDERED: ADALIMUMAB 40 MG/0.8 ML SUBCUT SCH (08:00)
[2019-02-18] MEDS: DEXMETHYLPHENIDATE HCL 20 MG PO SCH (08:00)
[2019-02-18] MEDS: losartan 50mg tablet PO SCH (08:27)
[2019-02-18] MEDS: propranolol 10mg tablet PO SCH ×2 (08:27→20:24)
[2019-02-18] MEDS: predniSONE 20 mg tablet PO SCH (08:28)
[2019-02-18] MEDS: ferrous sulfate 325mg tablet PO SCH (08:28)
[2019-02-18] MEDS: mesalamine 1.2gm ER tablet PO SCH ×3 (08:33→17:13)
[2019-02-18 08:49] VITALS: BP 123/72
--- NOTE | 2019-02-18 09:01 | NUR ---
Patient in room REBECCA 349. I have received report from Shahid and had the opportunity to ask questions and assume patient care.
[2019-02-18 11:49] VITALS: BP 129/69
--- NOTE | 2019-02-18 13:00 | NUR ---
Pt was still complaning about pain with Seaton 5. He stated that he had a 9/10 and after 30 min of checking for pain relief he stated 6/10 pain. Paged to change order to Seaton 10 for better pain control. He has had two bowel movement so far with minimal blood. Will keep monitoring bowel movements per doctor order
--- NOTE | 2019-02-18 14:39 | NUR ---
According to shift change report patient's mother was to bring in patient's Humira yesterday but has not. Asked patient if his mother would be bringing in today and patient states, "I don't think it gets delivered to my house today. I think it gets delivered to my house tomorrow."
[2019-02-18] MEDS: HYDROcodone/acetaminophen 10/325mg tab PO PRN (15:48)
--- NOTE | 2019-02-18 17:38 | NUR ---
Student documentation: I have reviewed and agree with all interventions, assessments performed and documented by SN Vahe. Student Medication Administration: For this medication-pass time frame, all medication were reviewed, dispensed, administered and documented per hospital policy by SN Vahe.
[2019-02-18 18:00] VITALS: BP 156/83
--- NOTE | 2019-02-18 18:33 | NUR ---
Problems reprioritized. Patient report given, questions answered & plan of care reviewed with YOSSI.
--- NOTE | 2019-02-18 18:36 | NUR ---
Problems reprioritized. Patient report given, questions answered & plan of care reviewed with LARON us.
--- NOTE | 2019-02-18 18:37 | NUR ---
Patient in room REBECCA 349. I have received report from Marcellus, Dioni and student nurse and had the opportunity to ask questions and assume patient care.
[2019-02-18] MEDS: montelukast 10mg tablet PO SCH (20:25)
[2019-02-18] MEDS: risperiDONE 0.5mg tablet PO SCH (20:25)
[2019-02-19] VITALS: BP 130/76
[2019-02-19] MEDS: HYDROcodone/acetaminophen 10/325mg tab PO PRN ×4 (00:35→21:30)
--- NOTE | 2019-02-19 06:30 | NUR ---
Problems reprioritized. Patient report given, questions answered & plan of care reviewed with LARON Oro.
[2019-02-19 07:00] VITALS: BP 116/74
--- NOTE | 2019-02-19 07:00 | NUR ---
Patient in room REBECCA 349. I have received report from Rafita LARRY and had the opportunity to ask questions and assume patient care.
[2019-02-19] MEDS: predniSONE 20 mg tablet PO SCH (07:49)
[2019-02-19] MEDS: propranolol 10mg tablet PO SCH ×2 (07:49→20:14)
[2019-02-19] MEDS: losartan 50mg tablet PO SCH (07:49)
[2019-02-19] MEDS: ferrous sulfate 325mg tablet PO SCH (07:50)
[2019-02-19] MEDS: mesalamine 1.2gm ER tablet PO SCH ×3 (07:53→17:00)
[2019-02-19] MEDS: DEXMETHYLPHENIDATE HCL 20 MG PO SCH (07:57)
[2019-02-19] MEDS: K and/or MAG REPLACEMENT MC SCH (07:59)
--- NOTE | 2019-02-19 10:30 | NUR ---
Initial: Pt admit with recurrent GIB with UC flare. Per MD notes UC responds well to steroids however pt recently discontinued an rx and bleeding resumed. Pt clinically improving with mild episodes of bleeding in stool and pt negative for C.diff per MD notes. Pt with multiple past admissions for UC flare-up and was provided with written and verbal nutrition therapy education by NIKI. Pt currently on regular diet documented with 100% PO intake, noted that pt received double protein during past visits, d/w dietary to resume for satiety. [facility] 02/18. Will continue to follow. Recommendations: 1) Diet change to low residue given dx and with diarrhea 2) Double protein TID 3) Bowel care 4) Wt per rx Addendum: 02/19/19 at [address] Amended: Links added.
[2019-02-19 11:00] VITALS: BP 127/73
[2019-02-19 18:00] VITALS: BP 142/70
--- NOTE | 2019-02-19 18:57 | NUR ---
Problems reprioritized. Patient report given, questions answered & plan of care reviewed with YOSSI LARRY.
--- NOTE | 2019-02-19 18:58 | NUR ---
Patient in room REBECCA 349. I have received report from LARON Oro and had the opportunity to ask questions and assume patient care.
[2019-02-19] MEDS: montelukast 10mg tablet PO SCH (20:14)
[2019-02-19] MEDS: risperiDONE 0.5mg tablet PO SCH (20:14)
[2019-02-20 00:50] VITALS: BP 150/90
[2019-02-20] MEDS: HYDROcodone/acetaminophen 10/325mg tab PO PRN (05:53)
--- NOTE | 2019-02-20 06:27 | NUR ---
Problems reprioritized. Patient report given, questions answered & plan of care reviewed with LARON Oro.
[2019-02-20 07:00] VITALS: BP 140/75
--- NOTE | 2019-02-20 07:00 | NUR ---
Patient in room REBECCA 349. I have received report from Rafita LARRY and had the opportunity to ask questions and assume patient care.
[2019-02-20] MEDS: K and/or MAG REPLACEMENT MC SCH (08:00)
[2019-02-20] MEDS: DEXMETHYLPHENIDATE HCL 20 MG PO SCH (08:00)
[2019-02-20] MEDS: ferrous sulfate 325mg tablet PO SCH (08:28)
[2019-02-20] MEDS: mesalamine 1.2gm ER tablet PO SCH ×2 (08:28→11:46)
[2019-02-20] MEDS: losartan 50mg tablet PO SCH (08:29)
[2019-02-20] MEDS: predniSONE 20 mg tablet PO SCH (08:29)
[2019-02-20] MEDS: propranolol 10mg tablet PO SCH (08:29)
[2019-02-20 11:00] VITALS: BP 126/62
[2019-02-20 12:00] LABS: EOSINOPHILS # (AUTO) 0.1 X10'3 (0-0.9); MONOCYTES # (AUTO) 0.8 X10'3 (0-0.9); MONOCYTES % (AUTO) 7.8 % (2-12)
[2019-02-20 12:02] LABS: BASOPHILS # (AUTO) 0.1 X10'3 (0-0.2); BASOPHILS % (AUTO) 0.6 % (0-1); EOSINOPHILS % (AUTO) 0.9 % (0-6); HEMATOCRIT 26.9 % (42.0-52.0); HEMOGLOBIN 8.6 g/dl (14.0-17.9); LYMPHOCYTES # (AUTO) 1.4 X10'3 (1.1-4.8); LYMPHOCYTES % (AUTO) 13.7 % (21-51); MEAN CORPUSCULAR HEMOGLOBIN 26.6 PG (27.0-31.0); MEAN CORPUSCULAR HGB CONC 31.9 g/dL (33.0-36.5); MEAN CORPUSCULAR VOLUME 83.3 FL (78-98); MEAN PLATELET VOLUME 6.3 FL (7.4-10.4); NEUTROPHILS # (AUTO) 7.7 X10'3 (1.8-7.7); PLATELET COUNT 634 X10'3 (140-440); RED BLOOD COUNT 3.23 X10'6 (4.70-6.10); RED CELL DISTRIBUTION WIDTH 18.1 % (11.5-14.5)
[2019-02-20 12:24] LABS: ALANINE AMINOTRANSFERASE 13 U/L (12-78); ALBUMIN 1.5 G/DL (3.4-5.0); ALBUMIN/GLOBULIN RATIO 0.4 (1.1-1.5); ALKALINE PHOSPHATASE 61 IU/L (46-116); ANION GAP 5 (8-16); ASPARTATE AMINO TRANSFERASE 9 U/L (10-37); BILIRUBIN,TOTAL 0.1 MG/DL (0.1-1.0); BLOOD UREA NITROGEN 12 MG/DL (7-18); BUN/CREATININE RATIO 12.2 (5.4-32.0); CALCIUM 7.7 MG/DL (8.5-10.1); CHLORIDE 107 MMOL/L (99-107); CREATININE 0.98 MG/DL (0.60-1.10); GLUCOSE 102 MG/DL (70-104); POTASSIUM 4.5 MMOL/L (3.5-5.1); SODIUM 140 MMOL/L (135-145); TOTAL CARBON DIOXIDE 28.2 MMOL/L (24-32); TOTAL PROTEIN 5.5 G/DL (6.4-8.2); eGFR > 90 ML/MIN
[2019-02-20] MEDS ORDERED: PRED20TA PO (14:44)
--- NOTE | 2019-02-20 16:40 | NUR ---
Pt discharge to home with parent. Parents helped him packed and carried his personal belonging. Pt and parents verbalized understanding of DC orders, follow up directions. pt sign papers himself, IV cath was removed, intact. Pt will follow up with maxi for his colitis per 's recommendations. he will also follow up with Dr. Russell PCP. Pt wheeled top the front by staff member and parents drove him home.
== END 2019-02-20 16:51 | disposition home or self-care (01) | DRG 245 ==
LOC: ER 22:01 → ED HOLD 23:49 → SUR 3N 02-15 00:52
PROVIDERS: ADMIT Internal Medicine; ATTEND Internal Medicine
PROC: 30233N1 Transfusion of Nonautologous Red Blood Cells into Peripheral Vein, Percutaneous Approach (ICD-10-PCS; principal; 2019-02-15)
DX: K51.90 Ulcerative colitis, unspecified, without complications (principal); E66.01 Morbid (severe) obesity due to excess calories; D62 Acute posthemorrhagic anemia; E87.1 Hypo-osmolality and hyponatremia; Z68.43 Body mass index [BMI] 50.0-59.9, adult; F90.9 Attention-deficit hyperactivity disorder, unspecified type; G47.33 Obstructive sleep apnea (adult) (pediatric); G89.29 Other chronic pain; D47.3 Essential (hemorrhagic) thrombocythemia; J45.909 Unspecified asthma, uncomplicated; I10 Essential (primary) hypertension; F41.8 Other specified anxiety disorders; K43.9 Ventral hernia without obstruction or gangrene; G47.00 Insomnia, unspecified; Z79.899 Other long term (current) drug therapy
CPT/HCPCS: 36415; 80053; 83735; 85025; 85610; 85730; 86885; 86900; 86901; 86920; 87081; 87324; 87449; 93005; 94760; 97116; 97161; 97530; 99291; G0378; J1720; J2270; J7030; J7512; P9016

== ENCOUNTER 2019-02-22 08:54 | Emergency (ER) | payer MEDICAID ==
[~2019-02-22] VITALS: Ht 167.6 cm; Wt 157.0 kg
[~2019-02-22 08:54] MED LIST changes: -MESA1.2T3 PO; -PANT40TA4 PO
[2019-02-22 10:07] LABS: EOSINOPHILS # (AUTO) 0.1 X10'3 (0-0.9); HEMOGLOBIN 8.4 g/dl (14.0-17.9); MEAN CORPUSCULAR VOLUME 82.6 FL (78-98); PLATELET COUNT 713 X10'3 (140-440)
[2019-02-22 10:09] LABS: BASOPHILS % (AUTO) 0.3 % (0-1); HEMATOCRIT 26.4 % (42.0-52.0); LYMPHOCYTES % (AUTO) 20.6 % (21-51); MEAN CORPUSCULAR HEMOGLOBIN 26.2 PG (27.0-31.0); MEAN CORPUSCULAR HGB CONC 31.8 g/dL (33.0-36.5); MEAN PLATELET VOLUME 6.6 FL (7.4-10.4); MONOCYTES # (AUTO) 0.9 X10'3 (0-0.9); MONOCYTES % (AUTO) 9.6 % (2-12); NEUTROPHILS # (AUTO) 6.6 X10'3 (1.8-7.7); NEUTROPHILS % (AUTO) 68.5 % (42-75); RED BLOOD COUNT 3.19 X10'6 (4.70-6.10); RED CELL DISTRIBUTION WIDTH 17.6 % (11.5-14.5); WHITE BLOOD COUNT 9.6 X10'3 (4.5-11.0)
[2019-02-22 10:21] LABS: ALANINE AMINOTRANSFERASE 16 U/L (12-78); ALBUMIN 1.8 G/DL (3.4-5.0); ALBUMIN/GLOBULIN RATIO 0.4 (1.1-1.5); ALKALINE PHOSPHATASE 49 IU/L (46-116); ANION GAP 3 (8-16); ASPARTATE AMINO TRANSFERASE 13 U/L (10-37); BILIRUBIN,TOTAL 0.2 MG/DL (0.1-1.0); BLOOD UREA NITROGEN 13 MG/DL (7-18); BUN/CREATININE RATIO 13.8 (5.4-32.0); CALCIUM 8.2 MG/DL (8.5-10.1); CHLORIDE 104 MMOL/L (99-107); CREATININE 0.94 MG/DL (0.60-1.10); GLUCOSE 80 MG/DL (70-104); POTASSIUM 4.2 MMOL/L (3.5-5.1); SODIUM 137 MMOL/L (135-145); TOTAL CARBON DIOXIDE 30.4 MMOL/L (24-32); TOTAL PROTEIN 5.9 G/DL (6.4-8.2); eGFR > 90 ML/MIN
[2019-02-22 10:44] LABS: ANISOCYTOSIS 1+; HYPOCHROMASIA 1+; PLATELET ESTIMATE INCREASED; POLYCHROMASIA 1+; TOTAL CELLS COUNTED 100
[2019-02-22 10:45] LABS: GIANT PLATELET FEW; LARGE PLATELETS FEW; STOMATOCYTES FEW; TOXIC VACUOLATION FEW
[2019-02-22] MEDS ORDERED: methylPREDNISolone sod succ 125mg/2ml vial IV ONE (12:00)
[2019-02-22 12:13] LABS: CLARITY,URINE SLIGHTLY CLOUDY (Clear); COLOR,URINE YELLOW (Yellow); GLUCOSE, URINE NEGATIVE (Neg); KETONES,URINE NEGATIVE (Neg); LEUKOCYTE ESTERASE ,URINE NEGATIVE (Neg); NITRITES, URINE NEGATIVE (Neg); OCCULT BLOOD,URINE LARGE (Neg); PH,URINE 6.5 (4.8-8.0); PROTEIN,URINE NEGATIVE (Neg); UA COLLECTION TYPE CLN CATCH MIDSTREAM; UROBILINOGEN,URINE 0.2 E.U/dL (0.2-1.0)
[2019-02-22 12:53] LABS: SQUAMOUS EPITHELIAL CELL,UR FEW /LPF (FEW)
[2019-02-22 12:54] LABS: BACTERIA,URINE FEW /HPF (Neg)
[2019-02-22 12:55] LABS: RBC,URINE 20-50 /HPF (0-2)
[2019-02-22] MEDS ORDERED: Potassium Cl inj 20 MEQ in ringers solution, lacted 1,000 ML IV ONE (13:10)
--- NOTE | 2019-02-22 13:39 | NUR ---
Lunch relief for primary nurse. Pt is resting in a position of comfort. Pt's IVF is infusing.
[2019-02-22 14:26] VITALS: BP 137/78
[2019-02-22] MEDS ORDERED: ADAL40PE SUBCUT (14:34)
== END 2019-02-22 14:54 | disposition home or self-care (01) ==
LOC: ER 08:55
DX: K51.811 Other ulcerative colitis with rectal bleeding (principal); Z79.899 Other long term (current) drug therapy
CPT/HCPCS: 36415; 80053; 81001; 85025; 85610; 87077; 87088; 87186; 96374; 99283; J2930; J3480; J7120

== ENCOUNTER 2019-03-18 08:45 | Day surgery (SDC) | payer MEDICAID ==
[2019-03-18] MEDS ORDERED: LIDOcaine 2% 5ml jelly ONE (09:34)
== END 2019-03-18 10:56 | disposition home or self-care (01) ==
LOC: WOUND CARE 08:45
PROVIDERS: ATTEND Surgery
DX: S91.301A Unspecified open wound, right foot, initial encounter (principal); I10 Essential (primary) hypertension; D64.9 Anemia, unspecified; E66.01 Morbid (severe) obesity due to excess calories; G47.33 Obstructive sleep apnea (adult) (pediatric); G89.29 Other chronic pain; J45.909 Unspecified asthma, uncomplicated; E46 Unspecified protein-calorie malnutrition; F32.9 Major depressive disorder, single episode, unspecified; F41.8 Other specified anxiety disorders; Z87.891 Personal history of nicotine dependence; Z79.899 Other long term (current) drug therapy; Z68.44 Body mass index [BMI] 60.0-69.9, adult; X58.XXXA Exposure to other specified factors, initial encounter; Y93.89 Activity, other specified; Y92.89 Other specified places as the place of occurrence of the external cause; Y99.8 Other external cause status
CPT/HCPCS: 36415; 83036; 97597; A4663; A6021; A6154

== ENCOUNTER 2019-03-27 08:44 | Day surgery (SDC) | payer MEDICAID | END 2019-03-27 10:39 | disposition home or self-care (01) | LOC: WOUND CARE 08:44 | PROVIDERS: ATTEND Surgery | DX: S91.301D Unspecified open wound, right foot, subsequent encounter (principal); I10 Essential (primary) hypertension; D64.9 Anemia, unspecified; E66.01 Morbid (severe) obesity due to excess calories; G47.33 Obstructive sleep apnea (adult) (pediatric); G89.29 Other chronic pain; J45.909 Unspecified asthma, uncomplicated; E46 Unspecified protein-calorie malnutrition; F32.9 Major depressive disorder, single episode, unspecified; F41.8 Other specified anxiety disorders; Z87.891 Personal history of nicotine dependence; Z79.899 Other long term (current) drug therapy; Z68.44 Body mass index [BMI] 60.0-69.9, adult; X58.XXXD Exposure to other specified factors, subsequent encounter | CPT/HCPCS: 97597; A4663; A6021; A6154 ==

== ENCOUNTER 2019-05-20 10:55 | Outpatient (CLI) | payer MEDICAID ==
[2019-05-20 11:54] LABS: C DIFF ANTIGEN NEGATIVE (NEGATIVE); C DIFF SPECIMEN=DIARRHEA? ACCEPTABLE; C DIFFICILE TOXINS A&B NEGATIVE (Neg)
== END 2019-05-20 23:59 | disposition home or self-care (01) ==
LOC: LAB SPEC 10:55
PROVIDERS: ATTEND Internal Medicine
DX: T81.89XA Other complications of procedures, not elsewhere classified, initial encounter (principal); Y83.8 Other surgical procedures as the cause of abnormal reaction of the patient, or of later complication, without mention of misadventure at the time of the procedure; Y92.89 Other specified places as the place of occurrence of the external cause
CPT/HCPCS: 87324; 87449

== ENCOUNTER 2019-08-21 11:36 | Inpatient (IN) | payer MEDICAID ==
[~2019-08-21] VITALS: Ht 167.6 cm; Wt 150.0 kg
[2019-08-21 12:59] LABS: BASOPHILS # (AUTO) 0.1 X10'3 (0-0.2); BASOPHILS % (AUTO) 0.7 % (0-1); EOSINOPHILS # (AUTO) 0.1 X10'3 (0-0.9); EOSINOPHILS % (AUTO) 0.5 % (0-6); HEMATOCRIT 36.8 % (42.0-52.0); HEMOGLOBIN 11.6 g/dl (14.0-17.9); LYMPHOCYTES # (AUTO) 0.8 X10'3 (1.1-4.8); LYMPHOCYTES % (AUTO) 5.1 % (21-51); MEAN CORPUSCULAR HGB CONC 31.4 g/dL (33.0-36.5); MEAN CORPUSCULAR VOLUME 82.8 FL (78-98); MEAN PLATELET VOLUME 7.6 FL (7.4-10.4); MONOCYTES # (AUTO) 0.4 X10'3 (0-0.9); MONOCYTES % (AUTO) 2.9 % (2-12); NEUTROPHILS # (AUTO) 13.5 X10'3 (1.8-7.7); NEUTROPHILS % (AUTO) 90.8 % (42-75); PLATELET COUNT 590 X10'3 (140-440); RED BLOOD COUNT 4.45 X10'6 (4.70-6.10); RED CELL DISTRIBUTION WIDTH 16.3 % (11.5-14.5); WHITE BLOOD COUNT 14.9 X10'3 (4.5-11.0)
[2019-08-21 13:15] LABS: ALANINE AMINOTRANSFERASE 31 U/L (12-78); ALBUMIN 2.9 G/DL (3.4-5.0); ALBUMIN/GLOBULIN RATIO 0.6 (1.1-1.5); ALKALINE PHOSPHATASE 68 IU/L (46-116); ANION GAP 7 (8-16); ASPARTATE AMINO TRANSFERASE 17 U/L (10-37); BILIRUBIN,TOTAL 0.2 MG/DL (0.1-1.0); BLOOD UREA NITROGEN 17 MG/DL (7-18); CALCIUM 9.7 MG/DL (8.5-10.1); CHLORIDE 104 MMOL/L (99-107); CREATININE 1.13 MG/DL (0.60-1.10); GLUCOSE 125 MG/DL (70-104); POTASSIUM 4.6 MMOL/L (3.5-5.1); SODIUM 140 MMOL/L (135-145); TOTAL PROTEIN 8.1 G/DL (6.4-8.2); eGFR 78 ML/MIN
[2019-08-21] MEDS ORDERED: normal saline 1000ML IV soln IVB ONE (13:25)
[2019-08-21] MEDS ORDERED: vancomycin/NS 1 GM ADD-VANTAGE 250 ML IV ONE (13:25)
[2019-08-21] MEDS ORDERED: iohexol 300mg/ml 100ml inj. ONE (13:49)
[2019-08-21] MEDS ORDERED: HYDROcodone/acetaminophen 10/325mg tab PO PRN (15:35)
[2019-08-21] MEDS ORDERED: HYDROcodone/acetaminophen 5mg/325mg tablet PO PRN (15:35)
[2019-08-21] MEDS ORDERED: potassium CL 10mEq/100ml bag 100 ML IV PRN ×2 (15:35)
[2019-08-21] MEDS ORDERED: acetaminophen 325mg tablet PO PRN ×2 (15:35)
[2019-08-21] MEDS ORDERED: morphine 2 MG/ML inj. syringe IV PRN ×2 (15:35)
[2019-08-21] MEDS ORDERED: potassium Cl 20 mEq SR tablet PO PRN ×2 (15:35)
[2019-08-21] MEDS ORDERED: magnesium hydroxide 30ml (MOM) UD suspension PO PRN (15:35)
[2019-08-21] MEDS ORDERED: magnesium 2GM in 50ml NS 50 ML IV PRN (15:35)
[2019-08-21] MEDS ORDERED: mag hydrox/Alum hydrox/simeth 30ml oral suspension PO PRN (15:35)
[2019-08-21] MEDS ORDERED: magnesium 4gm in 100ml NS 100 ML IV PRN (15:35)
[2019-08-21] MEDS ORDERED: ondansetron/PF 4mg/2ml inj IV PRN (15:35)
[2019-08-21] MEDS ORDERED: magnesium Cl slow-release 64mg tablet PO PRN (15:35)
[2019-08-21] MEDS ORDERED: PANT40TA4 PO (16:04)
[2019-08-21] MEDS ORDERED: LOSA100T57 PO (16:06)
[2019-08-21] MEDS ORDERED: PRED20TA PO (16:09)
[2019-08-21] MEDS: normal saline 1000ml 1,000 ML IV SCH (16:17)
[2019-08-21 17:33] VITALS: BP 135/80
--- NOTE | 2019-08-21 17:45 | NUR ---
Received patient report via phone from Thang LARRY in ER will assume patient care when patient comes to the floor.
[2019-08-21 18:15] VITALS: BP 112/78
--- NOTE | 2019-08-21 18:30 | NUR ---
PAGER ID: [phone] MESSAGE: Rebeca-Surg [id number] Re: Naty AlmanzaA repeat lactic 2.3 do you want another bolus? Addendum: 08/21/19 at 1832 by Rebeca Ronquillo RN Dr Mandel called back stated to give patient 500ml bolus of NS
--- NOTE | 2019-08-21 18:31 | NUR ---
Patient in room REBECCA 345. I have received report from Rebeca LARRY and had the opportunity to ask questions and assume patient care.
[2019-08-21] MEDS ORDERED: normal saline 500ml IV soln 500 ML IV ONE (18:35)
--- NOTE | 2019-08-21 18:46 | NUR ---
Problems reprioritized. Patient report given, questions answered & plan of care reviewed with Olya LARRY.
[2019-08-21] MEDS: K and/or MAG REPLACEMENT MC SCH (20:00)
[2019-08-21] MEDS ORDERED: temazepam 15mg capsule PO PRN (21:00)
[2019-08-21] MEDS: VANCOMYCIN 1,500MG inj. 1,500 MG in normal saline 500ml IV soln 500 ML IV SCH (21:41)
[2019-08-21] MEDS: nystatin/triamcinolone cream 15gm TP SCH (21:42)
[2019-08-21] MEDS: heparin, porcine 5000 units/ml vial SQ SCH (21:42)
[2019-08-22 00:15] VITALS: BP 116/47
[2019-08-22] MEDS: normal saline 1000ml 1,000 ML IV SCH ×4 (01:35→21:35)
[2019-08-22] MEDS: VANCOMYCIN 1,500MG inj. 1,500 MG in normal saline 500ml IV soln 500 ML IV SCH ×3 (03:10→19:28)
[2019-08-22 05:22] LABS: BASOPHILS # (AUTO) 0.1 X10'3 (0-0.2); BASOPHILS % (AUTO) 0.8 % (0-1); EOSINOPHILS # (AUTO) 0.4 X10'3 (0-0.9); EOSINOPHILS % (AUTO) 3.7 % (0-6); HEMATOCRIT 37.3 % (42.0-52.0); HEMOGLOBIN 11.3 g/dl (14.0-17.9); LYMPHOCYTES # (AUTO) 1.3 X10'3 (1.1-4.8); MEAN CORPUSCULAR HEMOGLOBIN 25.5 PG (27.0-31.0); MEAN CORPUSCULAR HGB CONC 30.2 g/dL (33.0-36.5); MEAN CORPUSCULAR VOLUME 84.6 FL (78-98); MEAN PLATELET VOLUME 7.6 FL (7.4-10.4); MONOCYTES # (AUTO) 0.8 X10'3 (0-0.9); MONOCYTES % (AUTO) 7.2 % (2-12); NEUTROPHILS # (AUTO) 9.1 X10'3 (1.8-7.7); NEUTROPHILS % (AUTO) 77.3 % (42-75); PLATELET COUNT 512 X10'3 (140-440); RED BLOOD COUNT 4.41 X10'6 (4.70-6.10); RED CELL DISTRIBUTION WIDTH 16.3 % (11.5-14.5); WHITE BLOOD COUNT 11.7 X10'3 (4.5-11.0)
[2019-08-22 05:53] LABS: ALANINE AMINOTRANSFERASE 25 U/L (12-78); ALBUMIN 2.4 G/DL (3.4-5.0); ALBUMIN/GLOBULIN RATIO 0.5 (1.1-1.5); ALKALINE PHOSPHATASE 57 IU/L (46-116); ANION GAP 9 (8-16); ASPARTATE AMINO TRANSFERASE 15 U/L (10-37); BILIRUBIN,TOTAL 0.1 MG/DL (0.1-1.0); BLOOD UREA NITROGEN 15 MG/DL (7-18); CHLORIDE 107 MMOL/L (99-107); GLUCOSE 76 MG/DL (70-104); SODIUM 139 MMOL/L (135-145); TOTAL CARBON DIOXIDE 22.7 MMOL/L (24-32); TOTAL PROTEIN 6.9 G/DL (6.4-8.2); eGFR 90 ML/MIN
--- NOTE | 2019-08-22 06:30 | NUR ---
Problems reprioritized. Patient report given, questions answered & plan of care reviewed with Jamaica LARRY.
[2019-08-22 07:00] VITALS: BP 122/75
[2019-08-22] MEDS: heparin, porcine 5000 units/ml vial SQ SCH ×2 (07:43→19:29)
[2019-08-22] MEDS: K and/or MAG REPLACEMENT MC SCH ×2 (08:00→19:24)
[2019-08-22] MEDS: nystatin/triamcinolone cream 15gm TP SCH ×2 (10:23→19:29)
[2019-08-22 11:00] VITALS: BP 138/63
[2019-08-22 18:00] VITALS: BP 138/81
--- NOTE | 2019-08-22 18:09 | NUR ---
Problems reprioritized. Patient report given, questions answered & plan of care reviewed with Prudence RN.
[2019-08-22] MEDS ORDERED: VANCOMYCIN LEVEL IV ONE (18:30)
--- NOTE | 2019-08-22 18:42 | NUR ---
Patient in room REBECCA 345. I have received report from Jamaica LARRY and had the opportunity to ask questions and assume patient care.
[2019-08-22] MEDS: lactobacillus rhamnosus 10,000 MMU CELLS/CAPSULE PO SCH (19:29)
[2019-08-23 00:40] VITALS: BP 132/81
[2019-08-23] MEDS: VANCOmycin 1250MG/NS 250ml Bag 250 ML IV SCH ×2 (03:33→09:59)
[2019-08-23 06:29] LABS: BASOPHILS % (AUTO) 0.4 % (0-1); EOSINOPHILS # (AUTO) 0.4 X10'3 (0-0.9); EOSINOPHILS % (AUTO) 5.7 % (0-6); HEMATOCRIT 35.4 % (42.0-52.0); HEMOGLOBIN 11.2 g/dl (14.0-17.9); LYMPHOCYTES # (AUTO) 0.8 X10'3 (1.1-4.8); LYMPHOCYTES % (AUTO) 10.6 % (21-51); MEAN CORPUSCULAR HEMOGLOBIN 26.1 PG (27.0-31.0); MEAN CORPUSCULAR HGB CONC 31.6 g/dL (33.0-36.5); MEAN CORPUSCULAR VOLUME 82.4 FL (78-98); MONOCYTES # (AUTO) 0.7 X10'3 (0-0.9); MONOCYTES % (AUTO) 9.4 % (2-12); NEUTROPHILS # (AUTO) 5.8 X10'3 (1.8-7.7); NEUTROPHILS % (AUTO) 73.9 % (42-75); PLATELET COUNT 563 X10'3 (140-440); RED BLOOD COUNT 4.29 X10'6 (4.70-6.10); RED CELL DISTRIBUTION WIDTH 16.3 % (11.5-14.5); WHITE BLOOD COUNT 7.9 X10'3 (4.5-11.0)
[2019-08-23 06:30] LABS: ALANINE AMINOTRANSFERASE 20 U/L (12-78); ALBUMIN 2.5 G/DL (3.4-5.0); ALBUMIN/GLOBULIN RATIO 0.6 (1.1-1.5); ALKALINE PHOSPHATASE 55 IU/L (46-116); ANION GAP 8 (8-16); ASPARTATE AMINO TRANSFERASE 13 U/L (10-37); BILIRUBIN,TOTAL 0.2 MG/DL (0.1-1.0); BLOOD UREA NITROGEN 11 MG/DL (7-18); BUN/CREATININE RATIO 11.7 (5.4-32.0); CALCIUM 8.8 MG/DL (8.5-10.1); CHLORIDE 108 MMOL/L (99-107); CREATININE 0.94 MG/DL (0.60-1.10); GLUCOSE 91 MG/DL (70-104); MAGNESIUM 1.7 MG/DL (1.5-2.4); SODIUM 139 MMOL/L (135-145); TOTAL CARBON DIOXIDE 23.5 MMOL/L (24-32); TOTAL PROTEIN 6.9 G/DL (6.4-8.2); eGFR > 90 ML/MIN
[2019-08-23 07:00] VITALS: BP 106/68
[2019-08-23] MEDS: K and/or MAG REPLACEMENT MC SCH (07:28)
--- NOTE | 2019-08-23 08:00 | NUR ---
Page Sent PAGER ID: [phone] MESSAGE: RADAMES 54-LINDSEY LEAL 345A...R THIGH CULTURE CAME BACK + MRSA
[2019-08-23] MEDS: lactobacillus rhamnosus 10,000 MMU CELLS/CAPSULE PO SCH (09:47)
[2019-08-23] MEDS: heparin, porcine 5000 units/ml vial SQ SCH (09:48)
[2019-08-23] MEDS: normal saline 1000ml 1,000 ML IV SCH (09:53)
[2019-08-23] MEDS: nystatin/triamcinolone cream 15gm TP SCH (09:54)
[2019-08-23] MEDS ORDERED: MYCOL15CR TP (10:39)
[2019-08-23] MEDS ORDERED: SULF1TAB49 PO (10:39)
[2019-08-23] MEDS ORDERED: VANCOmycin 1250MG/NS 250ml Bag 250 ML IV SCH (11:00)
--- NOTE | 2019-08-23 12:24 | NUR ---
IV REMOVED WITH NO PROBLEMS, WOUND PHOTOS TAKEN, MEDICATIONS CALLED TO ANUM SHELTER, PT DC'D IN STABLE CONDITION.
[2019-08-24] MEDS ORDERED: VANCOMYCIN LEVEL IV ONE (02:30)
== END 2019-08-23 11:57 | disposition home or self-care (01) | DRG 383 ==
LOC: ER 11:37 → ED HOLD 15:35 → EDBEDREQ 16:27 → SUR 3N 17:01
PROVIDERS: ADMIT Internal Medicine; ATTEND Internal Medicine
PROC: BQ2R1ZZ Computerized Tomography (CT Scan) of Right Lower Extremity using Low Osmolar Contrast (ICD-10-PCS; principal; 2019-08-21)
DX: L03.115 Cellulitis of right lower limb (principal); E66.01 Morbid (severe) obesity due to excess calories; R21 Rash and other nonspecific skin eruption; I10 Essential (primary) hypertension; Z93.3 Colostomy status; Z68.43 Body mass index [BMI] 50.0-59.9, adult
CPT/HCPCS: 36415; 73701; 80053; 80202; 83605; 83735; 84145; 85025; 87040; 87070; 87077; 87081; 87186; 96365; 99285; G0378; J1644; J3370; J7030; J7040; J7999; Q9967

== ENCOUNTER 2025-03-17 06:29 | Day surgery (SDC) | payer MEDICAID ==
[2025-03-08 10:56] LABS: MEAN PLATELET VOLUME 7.2 FL (7.4-10.4); RED CELL DISTRIBUTION WIDTH 13.5 % (11.5-14.5)
[2025-03-08 11:12] LABS: CREATININE 0.91 MG/DL (0.60-1.10); TOTAL CARBON DIOXIDE 35.6 MMOL/L (24-32); eGFR > 90 ML/MIN
[~2025-03-17] VITALS: Ht 167.6 cm; Wt 142.1 kg
[2025-03-17] MEDS: Cefazolin 3 GM/100ML NS IVPB 100 ML IV ONE (05:30)
[~2025-03-17 06:29] MED LIST changes: +ACET-2971 PO; -ADAL40PE SUBCUT; +ASCO-134 PO; +CHOL100046 PO; -FERR325T33 PO; +IBUP-24 PO; +LIDO700A47 TOP; -LOSA50TA64 PO; +MENT71OI TOP; -MESA1.2T PO; +MONT-47 PO; -MONT10TA21 PO; +MULT-1180 PO; +NYSPWD TP; +PANT20TA18 PO; -PRED20TA PO; -PROP20TA6 PO; -RISP1TAB3 PO; +TRIA15CR61 TOP; +[UNRECOGNIZED DRUG - CODE] EACH EAR
[2025-03-17 06:40] VITALS: BP 141/85; PULSE 88; RESP 15; RESP 16; TEMP 98.5; O2SAT 97
[2025-03-17] MEDS ORDERED: BUPIVAcaine 0.5% inj/PF 30 ML ONE (06:54)
[2025-03-17] MEDS ORDERED: LIDOcaine 1% 30ml preserv. free vial ONE (06:54)
[2025-03-17] MEDS ORDERED: BUPIVAcaine/PF 2.5mg/ml (0.25%) 10ml vial ONE (06:55)
[2025-03-17] MEDS: ringers solution, lacted 1,000 ML IV SCH (07:03)
[2025-03-17] MEDS ORDERED: midazolam 1 mg/ML 2ml injection ONE (07:19)
[2025-03-17] MEDS ORDERED: rocuronium 10mg/ml inj IV ONE (07:19)
[2025-03-17] MEDS ORDERED: propofol inj 20 ML IV ONE (07:19)
[2025-03-17] MEDS ORDERED: fentaNYL/PF 50MCG/1 ML 2ML syringe ONE (07:19)
[2025-03-17] MEDS ORDERED: HYDROmorphone/PF 0.2 MG/ML SYRINGE IV PRN ×2 (07:20)
[2025-03-17] MEDS ORDERED: labetalol 20mg/4ml (5mg/ml) syringe IV PRN (07:20)
[2025-03-17] MEDS ORDERED: morphine 4 MG/ML inj SYRINge IV PRN (07:20)
[2025-03-17] MEDS ORDERED: acetaminophen 1,000mg/100ml IV 100 ML IV PRN (07:20)
[2025-03-17] MEDS ORDERED: ondansetron/PF 4mg/2ml inj IV PRN (07:20)
[2025-03-17] MEDS ORDERED: hydrALAZINE 20mg/ml inj. IV PRN (07:20)
[2025-03-17] MEDS ORDERED: ringers solution, lacted 1,000 ML IV SCH (07:20)
[2025-03-17] MEDS ORDERED: ondansetron/PF 4mg/2ml inj ONE (08:18)
[2025-03-17] MEDS ORDERED: dexamethasone sod phosphate 4mg/ml inj. ONE (08:18)
[2025-03-17] MEDS ORDERED: bacitracin 15gm ointment TP ONE (08:18)
--- NOTE | 2025-03-17 08:32 | OPERATIVE REPORT ---
Operative Report Providers to ~ Date of Procedure: Mar 17, 2025 Pre-Operative Diagnosis: Phimosis Post-Operative Diagnosis SAME as PRE-Op Procedure Performed Adult circumcision Surgeon: Willie Sadler MD Benefits Specialist Recruiter None Anesthesiologist: Wade Hernadez Type of Anesthesia: General Findings: Successful circumcision Complications None Estimated Blood Loss: Minimal Specimen Removed: Distal foreskin Description of Procedure: The patient was under the effects of general anesthesia and in the supine position. His genitals were clipped of hair and prepped and draped in sterile fashion. The patient's phimotic ring was divided partially at the six and 12:00 p.m. positions thus allowing the foreskin to be retracted over the glans. The glans was then re-prepped with Betadine. The phallus was placed on full traction simulate an erection and then we created two circumcised incisions approximately 5 mm proximal to the coronal sulcus and a 2nd circumcised incision directly over the phallus skin at the approximate location of the coronal sulcus. Intervening skin was then removed using Bovie electrocautery. The two incisions were then approximated using chromic sutures in running fashion. Lidocaine was injected into our surgical site and his wound was covered in bacitracin. This marked the end of the procedure. Counts repoted as correct: Yes WILLIE SADLER MD Mar 17, 2025 08:32
[2025-03-17] MEDS ORDERED: glycopyrrolate 0.2mg/ml inj ONE (08:41)
[2025-03-17 08:42] VITALS: BP 149/88; PULSE 89; RESP 16; O2SAT 99
[2025-03-17 08:50] VITALS: BP 134/85; PULSE 85; RESP 12; O2SAT 100
[2025-03-17 09:00] VITALS: BP 139/89; PULSE 75; RESP 11; O2SAT 100
[2025-03-17 09:10] VITALS: BP 141/90; PULSE 74; RESP 15; O2SAT 97
[2025-03-17 09:20] VITALS: BP 152/89; PULSE 74; RESP 16; O2SAT 99
== END 2025-03-17 09:22 | disposition home or self-care (01) ==
LOC: PAS 06:29
PROVIDERS: ATTEND Urology
DX: N47.1 Phimosis (principal); E66.01 Morbid (severe) obesity due to excess calories; F90.9 Attention-deficit hyperactivity disorder, unspecified type; J45.909 Unspecified asthma, uncomplicated; I10 Essential (primary) hypertension; R73.09 Other abnormal glucose; Z68.32 Body mass index [BMI] 32.0-32.9, adult; Z87.891 Personal history of nicotine dependence
CPT/HCPCS: 36415; 54161; 80053; 82948; 85025; J0690; J1100; J2003; J2250; J2405; J2704; J2710; J3010; J3490; J7030; J7120; Z7506; Z7508; Z7512; A4215; A4618; A7000